=== PATIENT | male | born 1955 | race Caucasian/White ===

== ENCOUNTER → 2020-10-20 09:06 | Outpatient (BNVA) | payer OTHER, MEDICARE, SELFPAY | PROVIDERS: Family Provider Family Medicine; Visit Provider Nurse Practitioner Family | DX: I10 Essential (primary) hypertension (principal) | CPT/HCPCS: 80053; 80061; 84443; 85025 ==

== ENCOUNTER → 2020-11-10 13:48 | Outpatient (BNVA) | payer OTHER, MEDICARE, SELFPAY | PROVIDERS: Family Provider Family Medicine; PCP Nurse Practitioner Family; Visit Provider Nurse Practitioner Family | DX: M79.674 Pain in right toe(s) (principal); I10 Essential (primary) hypertension; H61.21 Impacted cerumen, right ear; Z68.30 Body mass index [BMI] 30.0-30.9, adult; H61.22 Impacted cerumen, left ear | CPT/HCPCS: 84550 ==

== ENCOUNTER → 2021-12-28 11:44 | Outpatient (BNVA) | payer MEDICARE, SELFPAY | PROVIDERS: Family Provider Family Medicine; PCP Nurse Practitioner Family; Visit Provider Family Medicine | DX: Z20.822 Contact with and (suspected) exposure to COVID-19 (principal); R50.9 Fever, unspecified | CPT/HCPCS: 87635 ==

== ENCOUNTER → 2022-09-28 16:33 | Outpatient (BNVA) | payer MEDICARE, SELFPAY | PROVIDERS: Family Provider Family Medicine; PCP Nurse Practitioner Family; Visit Provider Nurse Practitioner Family | DX: I10 Essential (primary) hypertension (principal) | CPT/HCPCS: 80053; 80061; 84443 ==

== ENCOUNTER → 2022-10-22 16:23 | Outpatient (BNVA) | payer MEDICARE, SELFPAY | PROVIDERS: Family Provider Family Medicine; PCP Nurse Practitioner Family; Visit Provider Otolaryngology | DX: H90.2 Conductive hearing loss, unspecified (principal); H61.23 Impacted cerumen, bilateral | CPT/HCPCS: 69210; 99212 ==

== ENCOUNTER → 2023-04-25 10:33 | Outpatient (BNVA) | payer MEDICARE, SELFPAY | PROVIDERS: Family Provider Family Medicine; PCP Nurse Practitioner Family; Visit Provider Nurse Practitioner Family | DX: I10 Essential (primary) hypertension (principal); E78.1 Pure hyperglyceridemia | CPT/HCPCS: 80053; 80061 ==

== ENCOUNTER 2023-07-12 14:48 | Outpatient (CLI) | payer MEDICARE, OTHER, SELFPAY ==
--- NOTE | 2023-07-12 14:54 | XR_ITS ---
WS: [id number] Exam: XR cervical spine 3V* [id number] Date/Time of Exam: 07/12/2023 2:56 PM Reason For Exam: M54.2 - Cervicalgia Comparison 09/21/2008. No fracture or dislocation. There is anterior fusion from C5-C7. The fusion is in satisfactory alignm ent. There are intervening disc spacers present. No sign of hardware failure. Mild facet DJD at all l evels. Normal paraspinal soft tissues. The odontoid is intact. IMPRESSION: 1. Intact anterior fusion from C5-C7. 2. Mild facet DJD at all levels.
== END 2023-07-12 14:49 | disposition home or self-care (01) ==
LOC: RAD 14:50
PROVIDERS: PCP Nurse Practitioner Family; Visit Provider Nurse Practitioner Family
DX: M47.812 Spondylosis without myelopathy or radiculopathy, cervical region (principal); Z98.890 Other specified postprocedural states; M43.22 Fusion of spine, cervical region
CPT/HCPCS: 72040

== ENCOUNTER 2023-07-25 06:00 | Outpatient (RCR) | payer MEDICARE, SELFPAY | END 2023-08-22 23:59 | disposition home or self-care (01) | LOC: GPT 06:00 | PROVIDERS: Visit Provider Nurse Practitioner Family | DX: M54.2 Cervicalgia (principal); G89.29 Other chronic pain | CPT/HCPCS: 97032; 97110; 97140; 97161; 97530 ==

== ENCOUNTER → 2023-08-08 14:56 | Outpatient (BNVA) | payer MEDICARE, SELFPAY | PROVIDERS: PCP Nurse Practitioner Family; Visit Provider Nurse Practitioner Family | DX: R30.0 Dysuria (principal) | CPT/HCPCS: 81000 ==

== ENCOUNTER 2023-08-23 06:00 | Outpatient (RCR) | payer MEDICARE, SELFPAY | END 2023-09-22 23:59 | disposition home or self-care (01) | LOC: GPT 06:00 | PROVIDERS: PCP Nurse Practitioner Family; Visit Provider Nurse Practitioner Family | DX: M54.2 Cervicalgia (principal); G89.29 Other chronic pain | CPT/HCPCS: 97110; 97140 ==

== ENCOUNTER 2023-09-10 15:21 | Outpatient (CLI) | payer MEDICARE, SELFPAY ==
--- NOTE | 2023-09-10 15:28 | XR_ITS ---
WS: [id number] Left shoulder, 3 views, 09/10/2023 Clinical Data: M25.512 - Pain in left shoulder Comparison: Left shoulder, 10/20/1999 Findings: No fractures or dislocations are seen. The AC joint is normal. The adjacent left clavicle, left scapu la and ribs are normal. The soft tissues are unremarkable. There is an anterior cervical disc fusion. Impression: Negative left shoulder.
== END 2023-09-10 15:22 | disposition home or self-care (01) ==
LOC: RAD 15:25
PROVIDERS: PCP Nurse Practitioner Family; Visit Provider Nurse Practitioner Family
DX: M25.512 Pain in left shoulder (principal)
CPT/HCPCS: 73030

== ENCOUNTER → 2023-10-29 14:42 | Outpatient (BNVA) | payer MEDICARE, SELFPAY | PROVIDERS: PCP Nurse Practitioner Family; Visit Provider Physician Assistant | DX: M25.512 Pain in left shoulder (principal); M75.42 Impingement syndrome of left shoulder | CPT/HCPCS: 20610; 73030; 99203; J3301 ==

== ENCOUNTER 2023-11-19 16:02 | Outpatient (CLI) | payer MEDICARE, SELFPAY ==
--- NOTE | 2023-11-19 16:45 | MR_ITS ---
WS: [id number] MRI LEFT SHOULDER HISTORY: left shoulder pain COMPARISON: 12/16/2008, radiograph 10/29/2023 TECHNIQUE: Multiplanar sequences of the shoulder joint are submitted. Mild AC joint arthritis. AC joint is narrowed. Mild hypertrophic formation and a very small amount of fluid in the subacromial and subdeltoid bursa. Mild progression of degenerative disease since 2008. There is a small osteophyte along the distal undersurface of the acromion with mild impingement. No o s acromion. Normal appearance of the biceps tendon. No muscle atrophy. Rotator cuff muscles are of normal size with no edema. There is mild tendinopathy with thickening involving the distal undersurface of the supraspinatus tendon near the rotator cuff i nterval. No tear identified. Very mild fraying and degenerative changes involving the labrum. No labr al tears. Mild glenohumeral joint narrowing. Signal within the osseous structures normal. MR/MR shoulder LT wo con* [id number] IMPRESSION: 1. Mild AC joint arthritis with progression since 2008. 2. Minimal subacromial impingement. 3. No rotator cuff muscle tear. Mild tendinopathy in the distal supraspinatus. 4. No labral tear. 5. No rotator cuff muscle atrophy.
== END 2023-11-19 16:03 | disposition home or self-care (01) ==
LOC: RAD 16:02
PROVIDERS: PCP Nurse Practitioner Family; Visit Provider Physician Assistant
DX: M75.42 Impingement syndrome of left shoulder (principal); M13.819 Other specified arthritis, unspecified shoulder; M25.712 Osteophyte, left shoulder
CPT/HCPCS: 73221

== ENCOUNTER → 2023-12-13 15:04 | Outpatient (BNVA) | payer MEDICARE, SELFPAY | PROVIDERS: PCP Nurse Practitioner Family; Visit Provider Student in an Organized Health Care Education/Training Program | DX: Z09 Encounter for follow-up examination after completed treatment for conditions other than malignant neoplasm; M54.12 Radiculopathy, cervical region; M75.42 Impingement syndrome of left shoulder | CPT/HCPCS: 99214 ==

== ENCOUNTER → 2024-01-02 15:11 | Outpatient (BNVA) | payer MEDICARE, SELFPAY | PROVIDERS: PCP Nurse Practitioner Family; Visit Provider Orthopaedic Surgery | DX: M54.9 Dorsalgia, unspecified (principal); G89.29 Other chronic pain; M54.2 Cervicalgia | CPT/HCPCS: 72050; 72072; 99204 ==

== ENCOUNTER 2024-01-23 12:29 | Outpatient (CLI) | payer MEDICARE, SELFPAY ==
--- NOTE | 2024-01-23 13:00 | MR_ITS ---
WS: [id number] MRI CERVICAL SPINE with and without contrast HISTORY: Neck Pain COMPARISON: 03/16/2008, radiograph 01/02/2024 Technique: Multiplanar, multisequence noncontrast imaging of the cervical spine. Postcontrast imaging 18 mL. Since the prior MRI patient's undergone an anterior cervical fusion from C5-C7. Interbody spacers at C5-6 and C6-7. There is fusion across the interbody spacers. No acute fracture or marrow edema. There is a very slight amount of increased T2 signal along the ve ntral cervical cord at the C7-T1 level, suspicious for edema. Craniocervical junction, C1 and C2 relationship, odontoid process and soft tissues are normal. C2-C3: Normal. C3-C4: Mild osteophytic ridging and a central disc protrusion. Mild bilateral foraminal stenosis, LEF T greater than RIGHT. C4-C5: Mild annular disc bulging and osteophytic ridging and facet arthritis. Central disc protrusion effaces CSF with mild contact on the ventral cord. Mild central and bilateral foraminal stenosis. C5-C6: No stenosis. C6-C7: No stenosis. C7-T1: Moderate-sized central disc protrusion. This may be a bilobed paracentral disc protrusion whic h is contacting and displacing the ventral cervical cord with complete effacement of CSF . Disc osteo phyte complexes extend into the neural foramen with complete effacement of fat. Moderate to severe ce ntral with severe bilateral foraminal stenosis. No discitis or osteomyelitis. There is a cystic mass measuring 10 x 12 mm in the RIGHT vallecula abutting the parapharyngeal mucosa . This was not present on the prior examination. On the postcontrast imaging there is questionable en hancement. MR/MR cervical spine wo/w [id number] IMPRESSION: 1. Patient is status post anterior cervical fusion with interbody spacers from C5-C7 which appears intact and appropriate. 2. C7-T1: Moderate size central bilobed disc protrusion contacting and displac ing the ventral cervical cord with disc osteophyte complexes in the foramina. M oderate to severe central with severe bilateral foraminal stenosis. New since 2 008. 3. Mild bilateral foraminal stenosis at C3-4 with a shallow central disc protr usion. 4. Mild central and bilateral foraminal stenosis at C4-5. 5. No discitis or osteomyelitis. 6. Cystic mass centered in the RIGHT vallecula. Mass measures 10 x 12 mm. Brice mmend follow-up neck CT with IV contrast. 7. Suspicious for mild anterior cord edema at the site of the C7-T1 disc protr usion.
[2024-01-23] MEDS: gadobenate dimeglumine 20 mL vial 18 ML IV (13:31)
== END 2024-01-23 12:30 | disposition home or self-care (01) ==
LOC: RAD 12:45
PROVIDERS: PCP Nurse Practitioner Family; Visit Provider Orthopaedic Surgery
DX: M50.20 Other cervical disc displacement, unspecified cervical region (principal); M99.61 Osseous and subluxation stenosis of intervertebral foramina of cervical region; M43.22 Fusion of spine, cervical region; M99.62 Osseous and subluxation stenosis of intervertebral foramina of thoracic region; M25.78 Osteophyte, vertebrae
CPT/HCPCS: 72156; A9577

== ENCOUNTER → 2024-02-13 15:17 | Outpatient (BNVA) | payer MEDICARE, SELFPAY | PROVIDERS: PCP Nurse Practitioner Family; Visit Provider Orthopaedic Surgery | DX: M54.2 Cervicalgia (principal); G89.29 Other chronic pain; Z98.890 Other specified postprocedural states; Z09 Encounter for follow-up examination after completed treatment for conditions other than malignant neoplasm; M54.12 Radiculopathy, cervical region | CPT/HCPCS: 80053; 81003; 81015; 85025; 99214 ==

== ENCOUNTER → 2024-03-06 10:11 | Outpatient (BNVA) | payer MEDICARE, SELFPAY | PROVIDERS: PCP Nurse Practitioner Family; Visit Provider Family Medicine | DX: Z01.818 Encounter for other preprocedural examination (principal) | CPT/HCPCS: 93005 ==

== ENCOUNTER 2024-04-03 08:58 | Day surgery (SDC) | payer OTHER, MEDICARE, SELFPAY ==
[2024-04-03] VITALS (11 sets, daily range): BP systolic 138–152; BP diastolic 78–95; PULSE 58–80; RESP 16–18; TEMP 36.2–36.4; O2SAT 92–97
[2024-04-03] MEDS: sodium chloride 0.9% 1,000 ML 30 ML IV (09:20)
--- NOTE | 2024-04-03 09:25 | W.PM.OPSUD ---
Surgery/Procedure H&P Update DATE OF PROCEDURE: April 03, 2024 DATE H&P PERFORMED: 03/06/24 H&P UPDATE INFORMATION: I have reviewed H&P completed within last 30 days, I have examined patient prior to procedure and No changes to prior documentation PREOP DIAGNOSIS: Cervical radiculopathy PLANNED PROCEDURE: Operation Date: 04/03/24 10:40 Proposed Procedures p Cervical Laminectomy C7/T1(Not Applicable) - José Gibson DO
--- NOTE | 2024-04-03 09:50 | P.ANESASSM_ITS ---
Pre-Anesthetic Assessment Height/Weight: Height 1.7 m Weight 87.543 kg Temp Pulse Resp BP Pulse Ox O2 Del Method 97.6 F 74 18 147/92 95 Room Air 04/03/24 09:19 04/03/24 09:19 04/03/24 09:19 04/03/24 09:19 04/03/24 09:19 04/03/24 09:36 Preop Diagnosis: Cervical radiculopathy Operation Date: 04/03/24 10:40 Proposed Procedures p Cervical Laminectomy C7/T1(Not Applicable) - José Gibson, Familial anesthetic complications: None Was Beta Jose R taken within 24 hours: N/A Was Clonidine taken within 24 hours: N/A Last intake: Intake Last Liquid Date 04/02/24 Last Liquid Time 22:00 Last Solid Date 04/02/24 Last Solid Time 18:00 Social Alcohol and Tobacco Exam alert, oriented x 3, clear to auscultation bilaterally and regular rate & rhythm Airway Mallampati: Class II Dentition: other (no teeth) CV/HEM Hypertension Anesthetic Plan ASA status: 2 Anesthesia: General Risk of > 500 ml blood loss (7ml/kg in children): No Medications/Allergies Home Medications Medication Instructions Recorded Confirmed Last Taken Type losartan 50 mg tablet 50 mg PO BID 04/03/24 04/03/24 04/02/24 History nifedipine 90 mg tablet,extended 90 mg PO DAILY 04/03/24 04/03/24 04/02/24 History release 24 hr Allergies Allergy/AdvReac Type Severity Reaction Status Date / Time No Known Allergies Allergy Verified 04/02/24 08:29 [facility] Anesthesia Surgical History History of neck surgery Social History Smoking and tobacco/nicotine status: never used tobacco/nicotine Alcohol intake: current Alcohol intake frequency: few times a month Alcohol type: hard liquor Data Anesthesia Cardiac Studies: No Data to Display
[2024-04-03] MEDS: ceFAZolin 2,000 mg SDV 2000 MG IVP (10:41)
[2024-04-03] MEDS: lidocaine-epi 1% 20 mL INJ INJECTION (11:24)
--- NOTE | 2024-04-03 11:43 | P.OP_ITS ---
Operative Report Date of procedure: April 03, 2024 Pre-op diagnosis: C7-T1 cervical radiculopathy Post-op diagnosis: same Procedure done: C7-T1 laminectomy with partial facetectomy and foraminotomy on the left Surgeon: José Gibson DO Estimated blood loss (mL): 5 Procedure: C7-T1 laminectomy with partial facetectomy and foraminotomy on the left Patient is brought to the procedure after an Gonasi was placed in prone position. All areas impingement well-padded patient's prepped draped using normal sterile fashion. C-arm was brought into identify the C7-T1 level on the left side. Skin incision was made and the fascia was opened. And then a wire was placed at the C7 lamina. And then dilators were placed up into the 18 mm tube was placed and a size 6 x 18 mm tube was placed. The microscope was brought in bur was used to clean the muscle of the remaining lamina of C7 and T1 lamina. Once the bone was identified high-speed bur was used to take down the lamina and medial aspect of the facet joint. The Kerrison rongeur was then used to take down the remaining C7 lamina as well as the medial aspect of the facet joint. The ligamentum flavum was taken down from C7-T1. Part of the T1 lamina was taken down superiorly. The pedicle of T1 and the pedicle of C7 were palpat ed. The foramen was then opened and identifying the C8 nerve root coming out laterally. Once this nerve was completely freed up wound was irrigated. And then the T1 nerve root was palpated around the T1 pedicle. Was irrigated Surgiflo was placed and wound was closed in layered fashion with 2-0 Vicryl and Monocryl suture. Sterile dressings applied and patient was transferred to the PACU in stable condition.
--- NOTE | 2024-04-03 12:05 | XR_ITS ---
WS: [id number] XR cervical spine 1Vport [id number] REASON FOR EXAM: OR PICS FINDINGS: Surgical instrument overlies the right C7-T1 disc space. XR/XR cervical spine 1Vport [id number] IMPRESSION: Intraoperative cervical level localization as above.
[2024-04-03] MEDS: oxyCODONE-APAP 5-325 mg Tablet 1 TAB PO (12:41)
== END 2024-04-03 13:16 | disposition home or self-care (01) ==
PROVIDERS: PCP Nurse Practitioner Family; Visit Provider Orthopaedic Surgery
PROC: (CPT 63001; principal; 2024-04-03 10:40)
DX: M54.12 Radiculopathy, cervical region (principal); I10 Essential (primary) hypertension
CPT/HCPCS: 63045; 72020; 76000; J0131; J0690; J1100; J2405; J2704; J3010; J3490; J7030

== ENCOUNTER → 2024-04-21 13:55 | Outpatient (BNVA) | payer MEDICARE, SELFPAY | PROVIDERS: PCP Nurse Practitioner Family; Visit Provider Orthopaedic Surgery | DX: M54.12 Radiculopathy, cervical region (principal) | CPT/HCPCS: 99024 ==

== ENCOUNTER → 2024-05-14 13:32 | Outpatient (BNVA) | payer MEDICARE, SELFPAY | PROVIDERS: PCP Nurse Practitioner Family; Visit Provider Orthopaedic Surgery | DX: Z98.1 Arthrodesis status (principal); M54.12 Radiculopathy, cervical region | CPT/HCPCS: 72040; 99024 ==

== ENCOUNTER → 2024-06-30 13:58 | Outpatient (BNVA) | payer MEDICARE, SELFPAY | PROVIDERS: PCP Nurse Practitioner Family; Visit Provider Orthopaedic Surgery | DX: M54.12 Radiculopathy, cervical region (principal); Z48.89 Encounter for other specified surgical aftercare | CPT/HCPCS: 99024 ==

== ENCOUNTER → 2024-08-20 14:15 | Outpatient (BNVA) | payer MEDICARE, SELFPAY | PROVIDERS: PCP Nurse Practitioner Family; Visit Provider Orthopaedic Surgery | DX: M54.9 Dorsalgia, unspecified (principal); M48.062 Spinal stenosis, lumbar region with neurogenic claudication | CPT/HCPCS: 72110; 99214 ==

== ENCOUNTER → 2024-09-18 09:08 | Outpatient (BNVA) | payer MEDICARE, SELFPAY | PROVIDERS: PCP Nurse Practitioner Family; Visit Provider Family Medicine | DX: N39.0 Urinary tract infection, site not specified (principal) | CPT/HCPCS: 81000 ==

== ENCOUNTER → 2024-10-01 10:44 | Outpatient (BNVA) | payer MEDICARE, SELFPAY | PROVIDERS: PCP Nurse Practitioner Family; Visit Provider Nurse Practitioner Family | DX: N39.0 Urinary tract infection, site not specified (principal) | CPT/HCPCS: 80053; 81000; 84153; 85025; 87086 ==

== ENCOUNTER 2024-10-13 14:12 | Outpatient (CLI) | payer MEDICARE, SELFPAY ==
--- NOTE | 2024-10-13 14:16 | CTR_ITS ---
PROCEDURE INFORMATION: Exam: CT Neck With Contrast Exam date and time: 10/13/2024 2:46 PM Age: 69 years old Clinical indication: Prior surgery; Surgery date: 6+ months; Surgery type: C spine x2; Left ear pain x 2 years; Additional info: Otalgia, L ear/? Head neck neoplasm TECHNIQUE: Imaging protocol: Computed tomography of the neck with contrast. Radiation optimization: All CT scans at this facility use at least one of these dose optimization techniques: automated exposure control; mA and/or kV adjustment per patient size (includes targeted exams where dose is matched to clinical indication); or iterative reconstruction. Contrast material: OMNI 350; Contrast volume: 100 ml; Contrast route: INTRAVENOUS (IV); COMPARISON: MR cervical spine wo/w [id number] 01/23/2024 1:03 PM RADIATION DOSE METRICS: Total DLP (mGy-cm): 287.64 FINDINGS: Paranasal sinuses: Mild bilateral ethmoid sinusitis. Otherwise, unremarkable visualized paranasal sinuses. Mastoid air cells: Clear visualized mastoid air cells bilaterally. Auditory system: Clear middle ear cavities bilaterally. Salivary glands: Normal. Glands are normal in size. Pharynx: Swollen parapharyngeal tonsils bilaterally. Increased soft tissue base of the tongue and involving the soft palate. Several small fluid collections in the left parapharyngeal tonsil, in the increased soft tissue involving the base of the tongue, and in the swollen soft palate. The largest involves the right base of the tongue measuring 14 mm by 11 mm by 12 mm. This is probably all inflammatory/abscesses, but given the history some of this could be neoplastic. Larynx: Unremarkable. Epiglottis is normal. Thyroid: Normal. No enlarged or calcified nodules. Trachea: Visualized trachea is unremarkable. Lungs: Unremarkable as visualized. Lymph nodes: Unremarkable. No lymphadenopathy. Bones/joints: Anterior C5-C7 surgical fusion with hardware. No obvious complication. Mild C7-T1 degenerative disc disease. Otherwise, unremarkable. Soft tissues: Unremarkable. No significant soft tissue swelling. CT/CT neck w con* [id number] IMPRESSION: 1. Swollen parapharyngeal tonsils bilaterally. Increased soft tissue base of the tongue and involving the soft palate. Several small fluid collections in the left parapharyngeal tonsil, in the increased soft tissue involving the base of the tongue, and in the swollen soft palate. The largest involves the right base of the tongue measuring 14 mm by 11 mm by 12 mm. This is probably all inflammatory/abscesses, but given the history some of this could be neoplastic. Consider definitive diagnosis with endoscopic visualization and tissue sampling. 2. Mild bilateral ethmoid sinusitis. 3. No other acute findings. 4. Additional details as above.
[2024-10-13] MEDS: iohexol 350 mg/mL 500 mL Btl (per mL) IV (14:56)
== END 2024-10-13 14:13 | disposition home or self-care (01) ==
LOC: RAD 14:13
PROVIDERS: PCP Nurse Practitioner Family; Visit Provider Otolaryngology
DX: H92.02 Otalgia, left ear (principal); J32.2 Chronic ethmoidal sinusitis; R93.89 Abnormal findings on diagnostic imaging of other specified body structures; Z98.1 Arthrodesis status; M50.33 Other cervical disc degeneration, cervicothoracic region
CPT/HCPCS: 70491

== ENCOUNTER → 2025-01-05 15:28 | Outpatient (BNVA) | payer MEDICARE, SELFPAY | PROVIDERS: PCP Nurse Practitioner Family; Visit Provider Orthopaedic Surgery | DX: M48.062 Spinal stenosis, lumbar region with neurogenic claudication (principal) | CPT/HCPCS: 99213 ==

== ENCOUNTER 2025-01-15 15:06 | Outpatient (CLI) | payer MEDICARE, SELFPAY ==
--- NOTE | 2025-01-15 15:15 | MR_ITS ---
WS: [id number] MRI LUMBAR SPINE NONCONTRAST TECHNIQUE: Sagittal T1, T2 and STIR imaging. Axial T1 and T2 imaging. CLINICAL INFORMATION: Back pain COMPARISON: MRI 2014 FINDINGS: Mild lumbar curve. No acute compression. No high-grade central canal stenosis. Disc desiccation at L5-S1 has progressed with endplate degenerative changes. Degenerative disc changes L1-2 with endplate Schmorl's node. ACDF C5-C7 on the cervical spine division service manager imaging. Grade 1 anterolisthesis C7 on T1 with central disc protrusion and moderate central canal stenosis. Indentation of the cervical cord. Recommend cervical spine MRI. L1-L2: Mild disc bulging with slight effacement of the ventral thecal sac. Mild narrowing of the subarticular recess. Mild facet arthropathy. Foramen are patent. L2-L3: Mild annular bulging with a shallow central protrusion. Slight impingement on the traversing LEFT greater than RIGHT L3 nerve roots with narrowing of the subarticular recess. Mild facet arthropathy. Mild LEFT foraminal narrowing. L3-L4: Annular bulging with narrowing of the RIGHT subarticular recess. Impingement of traversing RIGHT L4 nerve root. RIGHT foraminal protrusion impinges the exiting RIGHT L3 nerve root with moderate RIGHT foraminal narrowing. Mild facet arthropathy. L4-L5: Mild annular bulging. Impingement of the LEFT subarticular recess and traversing LEFT L5 nerve root. Mild facet arthropathy. LEFT foraminal protrusion impinges the exiting LEFT L4 nerve root with moderate LEFT foraminal narrowing. RIGHT foramen is patent. Mild facet arthropathy. L5-S1: Mild disc bulging with a shallow central LEFT paracentral protrusion. Encroachment of traversing LEFT greater than RIGHT S1 nerve roots. Bilateral foraminal protrusions with moderate RIGHT and mild LEFT foraminal narrowing. Visualized pelvic bony structures: Normal. Paravertebral soft tissues: Normal. MR/MR lumbar spine wo con* [id number] IMPRESSION: 1. Moderate central canal stenosis C7-T1 below the anterior fusion with indent ation on the cervical thoracic cord. Recommend cervical spine MRI. 2. Disc bulging L4-5 impinges the LEFT subarticular recess and traversing LEFT L5 nerve root. LEFT foraminal protrusion impinges the exiting LEFT L4 nerve ro ot. 3. Shallow central protrusion L5-S1 slightly impinges the traversing LEFT grea ter than RIGHT S1 nerve roots. 4. Bilateral foraminal protrusions L5-S1 impinges the exiting RIGHT greater th an LEFT L5 nerve roots. 5. Shallow LEFT paracentral protrusion L2-3 with narrowing of the LEFT subarti cular recess. 6. Disc bulging L3-4 impinges the traversing RIGHT L4 nerve root in the subart icular recess. RIGHT foraminal protrusion at this level impinges the exiting RI GHT L3 nerve root.
== END 2025-01-15 15:07 | disposition home or self-care (01) ==
LOC: RAD 15:09
PROVIDERS: PCP Nurse Practitioner Family; Visit Provider Orthopaedic Surgery
DX: M48.03 Spinal stenosis, cervicothoracic region (principal); M51.360 Other intervertebral disc degeneration, lumbar region with discogenic back pain only; M51.26 Other intervertebral disc displacement, lumbar region; M51.27 Other intervertebral disc displacement, lumbosacral region
CPT/HCPCS: 72148

== ENCOUNTER → 2025-01-19 14:35 | Outpatient (BNVA) | payer MEDICARE, SELFPAY | PROVIDERS: PCP Nurse Practitioner Family; Visit Provider Orthopaedic Surgery | DX: M48.062 Spinal stenosis, lumbar region with neurogenic claudication (principal); M51.360 Other intervertebral disc degeneration, lumbar region with discogenic back pain only; G89.29 Other chronic pain; Z01.818 Encounter for other preprocedural examination; Z09 Encounter for follow-up examination after completed treatment for conditions other than malignant neoplasm | CPT/HCPCS: 36415; 80053; 81001; 85025; 99214 ==

== ENCOUNTER 2025-01-29 09:30 | Outpatient (CLI) | payer MEDICARE, SELFPAY | END 2025-01-29 09:31 | disposition home or self-care (01) | LOC: LAB 02-01 06:35 | PROVIDERS: PCP Nurse Practitioner Family; Visit Provider Family Medicine | DX: Z01.818 Encounter for other preprocedural examination (principal) | CPT/HCPCS: 80053; 80503; 81003; 85007; 85027 ==

== ENCOUNTER → 2025-01-29 10:16 | Outpatient (BNVA) | payer MEDICARE, SELFPAY | PROVIDERS: PCP Nurse Practitioner Family; Visit Provider Family Medicine | DX: Z01.818 Encounter for other preprocedural examination (principal) | CPT/HCPCS: 93005 ==

== ENCOUNTER 2025-01-29 12:10 | Inpatient (IN) | payer MEDICARE, SELFPAY ==
[2025-01-29] VITALS (12 sets, daily range): BP systolic 121–161; BP diastolic 69–99; PULSE 89–124; RESP 12–20; TEMP 36.7–36.8; O2SAT 93–98; BMI 28.3; BMI 27.1
--- NOTE | 2025-01-29 12:16 | ECG_ITS ---
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
--- NOTE | 2025-01-29 12:35 | W.ED.RECABL ---
HPI - Recheck/Abnormal Lab/Rx General: Chief Complaint: Recheck/Abnormal Lab/Rx Stated Complaint: Abnormal Labs Time Seen by Provider: 01/29/25 12:16 History of Present Illness: 69-year-old male directed to the emergency room by his primary care doctor he was at his primary care for preop for back surgery and found to have acute renal failure. Dr. Sherman directed him to the emergency room. He was also noted to be hypercalcemic. He has been urinating normally as far as he can tell he has had some low-grade diarrhea for the last 3 weeks. Related Data Previous Rx's ?Medication ?Instructions ?Recorded losartan 50 mg tablet See Rx Instructions .Route 12/03/24 .COMPLEX #180 tabs tamsulosin 0.4 mg capsule (Flomax) 0.4 mg PO DAILY #90 caps 12/28/24 oxycodone-acetaminophen 5 mg-325 1 tab PO Q4H PRN pain 7 days #42 01/07/25 mg tablet tabs nifedipine 90 mg tablet,extended See Rx Instructions .Route 01/15/25 release 24 hr .COMPLEX #90 tabs Allergies Allergy/AdvReac Type Severity Reaction Status Date / Time No Known Allergies Allergy Verified 01/29/25 10:25 Review of Systems Const: Denies: fever(s) or chills Card: Denies: chest pain Resp: Denies: dyspnea GI: Reports: diarrhea; Denies: abdominal pain : Denies: dysuria, urinary frequency or urinary urgency Musc: Denies: neck pain or back pain Skin/Breast: Denies: rash PFSH ED PFSH: Surgical History History of neck surgery Social History Smoking and tobacco/nicotine status: current every day tobacco/nicotine user cigarettes Packs smoked per day: 1 Alcohol intake: current Alcohol intake frequency: few times a month Alcohol type: hard liquor Physical Exam Const: GENERAL APPEARANCE: cooperative ORIENTATION/CONSCIOUSNESS: Yes awake, Yes oriented to person, Yes oriented to place and Yes oriented to time HENMT: COMMON NORMALS: normocephalic, atraumatic and hearing grossly normal bilaterally HEAD & SCALP: normocephalic and atraumatic Resp: COMMON NORMALS: normal respiratory effort, No retractions, No use of accessory muscles and clear to auscultation bilaterally AUSCULTATION: clear to auscultation bilaterally Cardio: COMMON NORMALS: regular rate, regular rhythm and No murmurs present (Cardio) RATE: regular rate RHYTHM: regular rhythm GI: COMMON NORMALS: Soft to palpation and No hepatosplenomegaly present AUSCULTATION: Yes normoactive bowel sounds PALPATION: Yes Soft to palpation, No Tenderness to palpation present (GI), No Guarding due to palpation present (GI) and Yes No hepatosplenomegaly present Extremity: COMMON NORMALS: normal to inspection, capillary refill normal, no clubbing, cyanosis or edema, no calf tenderness and no pedal edema Neuro: SENSORIUM/ORIENTATION: Yes oriented to person, Yes oriented to place and Yes oriented to time Skin: COMMON NORMALS: no rashes or lesions noted GENERAL SKIN EXAM: no rashes or lesions noted Course Vital Signs: Vital signs: Vital Signs Temperature 98.0 F 01/29/25 12:18 Pulse Rate 124 H 01/29/25 12:18 Respiratory Rate 16 01/29/25 12:18 Blood Pressure 161/91 01/29/25 12:18 Pulse Oximetry 98 01/29/25 12:18 Oxygen Delivery Me thod Room Air 01/29/25 12:18 MDM - Recheck/Abnormal Lab/Rx Medical Decision Making Acute kidney injury. In September of this year his renal function was normal approximately 10 days ago was 5.4 now 10.2. He is also anemic with a hemoglobin of 8.1. Will admit consult nephrology. Have discussed with hospitalist. Also of concern is his calcium is significantly elevated and MRI done a few weeks ago did not show any abnormalities but CT done today shows concerning abnormalities in the lumbar spine and thoracic spine. This was reviewed with the hospitalist as well. Medical Records I reviewed the patient's medical records. Lab Data I reviewed the patient's lab results. 01/29/25 12:49 01/29/25 12:49 Radiology Impressions Abdomen/Pelvis CT 01/29/25 13:30 IMPRESSION: 1. Bilateral perinephric stranding with no obstruction. 2. Mesenteric edema with no ascites. 3. No GI tract obstruction or colitis. 4. New lytic lesion with loss of height in the RIGHT lateral L5 vertebral body since 01/15/2025. There is no adjacent mass. Possibility of a new compression fracture or metastatic lesion should be considered. There is an additional lytic area in the RIGHT lateral T10 vertebral body. Recommend follow-up MRI thoracic and lumbar spines with and without IV contrast. Bone scan may also be of benefit to evaluate the entire skeleton. 5. Mild compression of known L1 compression fracture and stable L2 compression fracture. 6. Scattered pancreatic calcifications from prior pancreatitis. 7. Spleen is top normal size. Laboratory Results WBC 3.56 10^3/uL (3.29-11.43) 01/29/25 12:49 RBC 2.42 10^6/uL (3.85-5.65) L 01/29/25 12:49 Hgb 8.10 g/dL (11.27-16.99) L 01/29/25 12:49 Hct 23.9 % (37-53) L 01/29/25 12:49 MCV 98.8 fl (82-101) 01/29/25 12:49 MCH 33.5 pg (27-33) H 01/29/25 12:49 MCHC 33.9 g/dL (30-55) 01/29/25 12:49 RDW 13.3 % (12.1-15.1) 01/29/25 12:49 Plt Count 105 10^3/cmm (157-399) L 01/29/25 12:49 MPV 9.7 fL (7.4-10.4) 01/29/25 12:49 Neut % (Auto) 56.5 % 01/29/25 12:49 Lymph % (Auto) 26.4 % 01/29/25 12:49 [place] % (Auto) 10.7 % 01/29/25 12:49 Eos % (Auto) 4.2 % 01/29/25 12:49 Baso % (Auto) 0.8 % 01/29/25 12:49 Neut # (Auto) 2.01 10^3/uL (1.8-7.7) 01/29/25 12:49 Lymph # (Auto) 0.9 10^3/uL (0.8-4.8) 01/29/25 12:49 [place] # (Auto) 0.4 10^3/uL (0.2-0.9) 01/29/25 12:49 Eos # (Auto) 0.2 10^3/uL (0.0-0.8) 01/29/25 12:49 Baso # (Auto) 0.0 10^3/uL (0.0-0.1) 01/29/25 12:49 Nucleated RBC % (auto) 0.8 % 01/29/25 12:49 Nucleated RBCs # 0.0 /100WBC 01/29/25 12:49 Sodium 134 mmol/L (136-145) L 01/29/25 12:49 Potassium 4.2 mmol/L (3.5-5.1) 01/29/25 12:49 Chloride 95 mmol/L (98-107) L 01/29/25 12:49 Carbon Dioxide 17 mmol/L (22-29) L 01/29/25 12:49 Anion Gap 26.2 (5-19) H 01/29/25 12:49 BUN 58 mg/dL (8-23) H 01/29/25 12:49 Creatinine 10.2 mg/dL (0.7-1.2) H* 01/29/25 12:49 GFR Calculation 5.1 mL/min (90-130) L 01/29/25 12:49 Glucose 107 mg/dL (65-115) 01/29/25 12:49 Calculated Osmolality 295 mOsm/kg (285-295) 01/29/25 12:49 Calcium 13.9 mg/dL (8.5-10.5) H* 01/29/25 12:49 Magnesium 2.5 mg/dL (1.7-2.3) H 01/29/25 12:49 Total Bilirubin 0.3 mg/dL (0.15-1.2) 01/29/25 12:49 AST 11 U/L (0-40) 01/29/25 12:49 ALT < 5 U/L (0-41) 01/29/25 12:49 Alkaline Phosphatase 55 U/L (40-130) 01/29/25 12:49 Creatine Kinase 60 U/L (39-308) 01/29/25 12:49 Total Protein 11.8 g/dL (6.6-8.7) H 01/29/25 12:49 Albumin 2.9 g/dL (3.5-5.2) L 01/29/25 12:49 Globulin 8.9 g/dL (1.3-4.6) H 01/29/25 12:49 PTH Intact 9.2 pg/mL (15-65) L 01/29/25 12:49 Calcium (PTH Intact) 13.6 mg/dL (8.5-10.5) H 01/29/25 12:49 All radiology interpretation(s) finalized by discharge EKG Data EKG 1: Interpretation: EKG 01/29/2025 10:26 AM sinus rhythm Q waves in 2 3 and [address]VF no acute ST elevation. There is T wave inversion in 3 and aVF. 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
[2025-01-29 13:11] LABS: Hematocrit 23.9 % (37-53); Hemoglobin 8.10 g/dL (11.27-16.99); Mean Corpuscular HGB Conc 33.9 g/dL (30-55); Mean Corpuscular Hemoglobin 33.5 pg (27-33); Mean Corpuscular Volume 98.8 fl (82-101); Nucleated Red Blood Cells % 0.8 %; Platelet Count 105 10^3/cmm (157-399); Red Blood Count 2.42 10^6/uL (3.85-5.65); White Blood Count 3.56 10^3/uL (3.29-11.43)
--- NOTE | 2025-01-29 13:30 | CT_ITS ---
WS: [id number] CT ABDOMEN AND PELVIS NONCONTRAST HISTORY: ZELDA TECHNIQUE: Imaging performed through the abdomen and pelvis. Coronal and sagittal reformats are submitted. All CT scans at [facility] use at least one of these dose optimization techniques: automated exposure control; mA and/or kV adjustment per patient size (includes targeted exams where dose is matched to clinical indication); or iterative reconstruction. DLP: 637.23 mGy.cm COMPARISON: 02/12/2012 Lower thorax: Benign granuloma at the RIGHT lung base. Heart is slightly enlarged. Liver: Normal size liver. No mass or bile duct dilatation. Gallbladder: Normal gallbladder. No pericholecystic fluid or cholelithiasis. No gallbladder wall thickening. Pancreas: There are a few scattered calcifications throughout the pancreas. Spleen: Spleen is top normal size at 12.4 cm in length with granulomata. Splenic varices. Adrenal glands: Normal. No mass. Right kidney: Mild perinephric stranding. No obstruction. Left kidney: Mild perinephric stranding with no obstruction. Aorta: Mild atherosclerosis abdominal aorta with no aneurysm. No ascites or adenopathy. Mild mesenteric edema. GI tract: No obstruction. There is mild submucosal edema which can be seen with portal venous hypertension. No colitis. Normal appendix. Abdominal wall: Negative. No hernia. Pelvis: Normally distended bladder. Prostate gland is mildly encroaching upon the posterior bladder. Bilateral patent inguinal canals contain fat only. Osseous structures: Lytic destruction involving the RIGHT lateral L5 vertebral body with slight loss of vertebral body height. New since 01/15/2025. Mild compression deformities at L1 and L2. Progression of biconcave fracture of L1. Stable L2 fracture. Additional sclerotic focus at T10. Additional lytic lesion in the RIGHT lateral T10 vertebral body. CT/CT abdomen pelvis wo con [id number] IMPRESSION: 1. Bilateral perinephric stranding with no obstruction. 2. Mesenteric edema with no ascites. 3. No GI tract obstruction or colitis. 4. New lytic lesion with loss of height in the RIGHT lateral L5 vertebral body since 01/15/2025. There is no adjacent mass. Possibility of a new compression f racture or metastatic lesion should be considered. There is an additional lytic area in the RIGHT lateral T10 vertebral body. Recommend follow-up MRI thoracic and lumbar spines with and without IV contrast. Bone scan may also be of benef it to evaluate the entire skeleton. 5. Mild compression of known L1 compression fracture and stable L2 compression fracture. 6. Scattered pancreatic calcifications from prior pancreatitis. 7. Spleen is top normal size.
[2025-01-29 13:31] LABS: Alanine Aminotransferase < 5 U/L (0-41); Albumin Level 2.9 g/dL (3.5-5.2); Alkaline Phosphatase 55 U/L (40-130); Anion Gap 26.2 (5-19); Aspartate Amino Transferase 11 U/L (0-40); Blood Urea Nitrogen 58 mg/dL (8-23); Carbon Dioxide 17 mmol/L (22-29); Chloride 95 mmol/L (98-107); Creatinine Clr Calc Pharmacy 7.1078; Globulin 8.9 g/dL (1.3-4.6); Glucose 107 mg/dL (65-115); Magnesium 2.5 mg/dL (1.7-2.3); Osmolality Calculated 295 mOsm/kg (285-295); Potassium 4.2 mmol/L (3.5-5.1); Sodium 134 mmol/L (136-145); Total Protein 11.8 g/dL (6.6-8.7)
[2025-01-29 13:51] LABS: Calcium 13.9 mg/dL (8.5-10.5)
[2025-01-29 13:52] LABS: Calcium 13.6 mg/dL (8.5-10.5)
--- NOTE | 2025-01-29 14:12 | P.CONIM_ITS ---
Providers/Reason For Consult 2 Consulting Physician/Specialty*: KOMMANA, NEPHROLOGY Reason for Consult*: ZELDA, hypercalcemia Attending Physician: Evie Marie MD Primary Care Provider: Yulissa Mariscal NP History of Present Illness History of Present Illness Gamal Yanez is a 69 year old male Patient is a 69-year-old male who was recently diagnosed with prostate cancer and also found to have lumbar compression fractures and was supposed to have laminectomy done on Saturday and preop labs showed severe hypercalcemia and severe ZELDA., And was sent to ER for further evaluation. Lab data in the ER has revealed severe hypercalcemia with a calcium of 13.9 and creatinine about 10. CT abdomen was done which was negative for hydronephrosis but showed lytic lesions at L5 and T10 vertebral bodies. Patient started on IV fluid resuscitation Creatinine was 1.0 in September 2024 and was noted rising up to 5.4 on January 19, 2025 and currently at 10.2. Patient also reported taking NSAIDs about 6 ibuprofen pills a day for the last 1 month for back pain. Review of Systems 2 Narrative: Negative Medications/Allergies Home Medications ?Medication ?Instructions ?Recorded ?Confirmed ?Last Taken ?Type losartan 50 mg tablet See Rx Instructions .Route 0 12/03/24 01/29/25 01/29/25 08:00 Rx .COMPLEX #180 tabs tamsulosin 0.4 mg capsule (Flomax) 0.4 mg PO DAILY #90 caps 12/28/24 01/29/25 Unknown Rx nifedipine 90 mg tablet,extended See Rx Instructions . Route 01/15/25 01/29/25 01/22/25 07:00 Rx release 24 hr .COMPLEX #90 tabs acetaminophen 500 mg tablet 1,500 mg PO Q6H PRN Pain 0 01/29/25 01/29/25 01/28/25 History (Tylenol Extra Strength) ibuprofen 200 mg tablet (Advil) 600 mg PO Q6H PRN Pain 01/29/25 01/29/25 01/28/25 History oxycodone-acetaminophen 5 mg-325 1 tab PO Q4H PRN pain 01/29/25 01/29/25 01/29/25 08:00 History mg tablet (Percocet) Allergies Allergy/AdvReac Type Severity Reaction Status Date / Time No Known Allergies Allergy Verified 01/29/25 10:25 PFSH Acute 2 PFSH: Surgical History History of neck surgery Social History Smoking and tobacco/nicotine status: current every day tobacco/nicotine user cigarettes Packs smoked per day: 1 Alcohol intake: current Alcohol intake frequency: few times a month Alcohol type: hard liquor Vitals/I&O/Wt Last Vital Signs Temp 98.0 F 01/29/25 12:18 Pulse 124 H 01/29/25 12:18 Resp 16 01/29/25 12:18 BP 161/91 01/29/25 12:18 Pulse Ox 98 01/29/25 12:18 O2 Del Method Room Air 01/29/25 12:18 01/28/25 01/29/25 01/29/25 22:59 06:59 14:59 Intake Total 0 / 0 Balance 0 / 0 Weight last 48 hrs Weight 82.1 kg Physical Exam 2 Narrative: Patient is awake alert, no distress, on room air No JVD, PERRLA S1-S2 regular rate and rhythm per report Lungs clear decreased breath sounds bilaterally per report Abdomen soft nontender per report No pedal edema Data 01/30/25 02:53 01/30/25 02:53 Micro: Microbiology 01/29/25 12:49 Blood Culture - Preliminary Blood SPECIMEN COLLECTED 01/29/25 12:42 Blood Culture - Preliminary Blood SPECIMEN COLLECTED A&P Assessment and plan 1. Acute kidney injury: 2. Hypercalcemia: Plan: 1. Acute kidney injury: Likely multifactorial in the setting of recent NSAID use, prerenal ZELDA due to poor p.o. intake and severe hypercalcemia. - Plan for aggressive IV fluid resuscitation, also ordered calcitonin, if no improvement discussed with patient and patient's daughter at bedside regarding possible dialysis. Strict intake and output. No obstruction on CT, urine analysis noted with 2+ protein and 1+ blood. - SPEP UPEP pending, 2. Severe hypercalcemia: Malignancy induced likely, avoiding bisphosphonates due to renal insufficiency, ordered calcitonin, Would benefit from denosumab, will initiate in-house if available. 3. Metabolic acidosis: In the setting of severe ZELDA, if no improvement will switch IV fluids to bicarbonate drip. 4. Hypertension: Avoid CHASITY inhibitors, resume nifedipine 5. Metastatic prostate cancer , Patient evaluated using audiovisual cart. Time spent 40 minutes. PDMP PDMP Reviewed: Not Reviewed Consult Attestations 2 Medical Necessity Statement: per medicine Coding Level of Care Code Acute Code for Chg Fwd Diagnoses Acute kidney injury N17.9 Hypercalcemia E83.52
--- NOTE | 2025-01-29 14:30 | P.HP_ITS ---
Providers/Chief Complaint 2 Admitting Physician: Evie Marie MD Primary Care Provider: Yulissa Mariscal NP Chief Complaint: Abnormal Labs History of Present Illness Gamal Yanez is a 69 year old male with recently diagnosed local prostate cancer per his history who was sent today after being noted to have abnormal labs on a pre surgery evaluation. He has been experiencing increasing back pain over the past month, more acutely worsened in the last week for which he has been taking NSAIDs and oxycodone without much relief. He was recently found to have an elevated PSA and underwent a prostate biopsy one month ago at [facility] and reports he was found to have localized prostate cancer. A bone scan did not show any metastatic disease per patient. A recent MRI from 01/19 also does not make note of any metastatic disease. He was planned to have laminectomy and fusion with Dr. carbone on Saturday and went for a pre surgery eval which found several abnormalities including ZELDA with creat at 10, hypercalcemia, elevated totdal protein. CT abdomen did not show any nephrolithiasis or hydronephrosis but revealed lytic lesions at L5 and t10 vertebral bodies. Jefferson cather was placed, no significant retention was encountered Review of Systems 2 General: Reports: 10 or more systems reviewed and unremarkable except in HPI and below Const: Denies: fever(s), chills or body aches Eyes: Denies: change in vision, blurry vision or photophobia ENMT: Reports: hoarseness; Denies: throat pain, enlarged tonsils, odynophagia or nasal congestion Card: Denies: chest pain, palpitations, irregular heart rhythm, edema, swelling of feet/ankles, lightheadedness, pre-syncope, dyspnea on exertion or orthopnea Resp: Denies: dyspnea, productive cough, non-productive cough, wheezing, stridor, pain on inspiration, change in phlegm color, hemoptysis or chest congestion GI: Denies: abdominal pain, nausea, vomiting, hematemesis, coffee ground emesis, dysphagia, heartburn, diarrhea, constipation, GI cramping, change in stool character, hematochezia or melena : Denies: flank pain, dysuria, urinary frequency, urinary urgency, urinary hesitancy or hematuria Musc: Denies: neck pain, back pain, extremity pain, joint swelling, joint warmth or deformity Neuro: Denies: headache(s), numbness in extremities, weakness in extremities, sensory changes, difficulty walking, frequent falls, dizziness, vertigo, behavioral changes, Slurred speech present or seizure-like activity Psych: Denies: anxiety, depression, suicidal ideation or homicidal ideation Endo: Denies: polyuria, polydipsia, tired all the time, cold intolerance or hot flashes Juan/Lymph: Denies: easy bruising or easy bleeding Medications/Allergies Home Medications ?Medication ?Instructions ?Recorded ?Confirmed ?Last Taken ?Type losartan 50 mg tablet See Rx Instructions .Route 0 12/03/24 01/29/25 01/29/25 08:00 Rx .COMPLEX #180 tabs tamsulosin 0.4 mg capsule (Flomax) 0.4 mg PO DAILY #90 caps 12/28/24 01/29/25 Unknown Rx nifedipine 90 mg tablet,extended See Rx Instructions . Route 01/15/25 01/29/25 01/22/25 07:00 Rx release 24 hr .COMPLEX #90 tabs acetaminophen 500 mg tablet 1,500 mg PO Q6H PRN Pain 0 01/29/25 01/29/25 01/28/25 History (Tylenol Extra Strength) ibuprofen 200 mg tablet (Advil) 600 mg PO Q6H PRN Pain 01/29/25 01/29/25 01/28/25 History oxycodone-acetaminophen 5 mg-325 1 tab PO Q4H PRN pain 01/29/25 01/29/25 01/29/25 08:00 History mg tablet (Percocet) Allergies Allergy/AdvReac Type Severity Reaction Status Date / Time No Known Allergies Allergy Verified 01/29/25 10:25 PFSH Acute 2 PFSH: Surgical History History of neck surgery Social History Smoking and tobacco/nicotine status: current every day tobacco/nicotine user cigarettes Packs smoked per day: 1 Alcohol intake: current Alcohol intake frequency: few times a month Alcohol type: hard liquor Vitals/I&O/Wt Last Vital Signs Temp 98.0 F 01/29/25 12:18 Pulse 124 H 01/29/25 12:18 Resp 16 01/29/25 12:18 BP 161/91 01/29/25 12:18 Pulse Ox 98 01/29/25 12:18 O2 Del Method Room Air 01/29/25 12:18 01/28/25 01/29/25 01/29/25 22:59 06:59 14:59 Intake Total 0 / 0 Balance 0 / 0 Weight last 48 hrs Weight 82.1 kg Physical Exam 2 Narrative: General: No acute distress, AO x3 HEENT: PERRLA, pupils bilaterally equal and reactive, pallors not present Chest: Normal vesicular breath sounds, no added sounds, equal good air entry bilaterally CVS: S1-S2 regular, no murmurs, no tachycardia, no gallops, no rubs Abdomen: Soft, nontender, no organomegaly, bowel sounds present Neuro: No focal deficits, no facial deformity, AO x3, power 5/5 in all limbs Data 01/29/25 12:49 01/29/25 12:49 Micro: Microbiology 01/29/25 12:49 Blood Culture - Preliminary Blood SPECIMEN COLLECTED 01/29/25 12:42 Blood Culture - Preliminary Blood SPECIMEN COLLECTED Other data: Radiology Impressions Abdomen/Pelvis CT 01/29/25 13:30 IMPRESSION: 1. Bilateral perinephric stranding with no obstruction. 2. Mesenteric edema with no ascites. 3. No GI tract obstruction or colitis. 4. New lytic lesion with loss of height in the RIGHT lateral L5 vertebral body since 01/15/2025. There is no adjacent mass. Possibility of a new compression fracture or metastatic lesion should be considered. There is an additional lytic area in the RIGHT lateral T10 vertebral body. Recommend follow-up MRI thoracic and lumbar spines with and without IV contrast. Bone scan may also be of benefit to evaluate the entire skeleton. 5. Mild compression of known L1 compression fracture and stable L2 compression fracture. 6. Scattered pancreatic calcifications from prior pancreatitis. 7. Spleen is top normal size. Laboratory Results WBC 3.56 10^3/uL (3.29-11.43) 01/29/25 12:49 RBC 2.42 10^6/uL (3.85-5.65) L 01/29/25 12:49 Hgb 8.10 g/dL (11.27-16.99) L 01/29/25 12:49 Hct 23.9 % (37-53) L 01/29/25 12:49 MCV 98.8 fl (82-101) 01/29/25 12:49 MCH 33.5 pg (27-33) H 01/29/25 12:49 MCHC 33.9 g/dL (30-55) 01/29/25 12:49 RDW 13.3 % (12.1-15.1) 01/29/25 12:49 Plt Count 105 10^3/cmm (157-399) L 01/29/25 12:49 MPV 9.7 fL (7.4-10.4) 01/29/25 12:49 Neut % (Auto) 56.5 % 01/29/25 12:49 Lymph % (Auto) 26.4 % 01/29/25 12:49 [place] % (Auto) 10.7 % 01/29/25 12:49 Eos % (Auto) 4.2 % 01/29/25 12:49 Baso % (Auto) 0.8 % 01/29/25 12:49 Neut # (Auto) 2.01 10^3/uL (1.8-7.7) 01/29/25 12:49 Lymph # (Auto) 0.9 10^3/uL (0.8-4.8) 01/29/25 12:49 [place] # (Auto) 0.4 10^3/uL (0.2-0.9) 01/29/25 12:49 Eos # (Auto) 0.2 10^3/uL (0.0-0.8) 01/29/25 12:49 Baso # (Auto) 0.0 10^3/uL (0.0-0.1) 01/29/25 12:49 Nucleated RBC % (auto) 0.8 % 01/29/25 12:49 Nucleated RBCs # 0.0 /100WBC 01/29/25 12:49 Peripher Smr Path Cons Sent for review 01/29/25 12:49 Sodium 134 mmol/L (136-145) L 01/29/25 12:49 Potassium 4.2 mmol/L (3.5-5.1) 01/29/25 12:49 Chloride 95 mmol/L (98-107) L 01/29/25 12:49 Carbon Dioxide 17 mmol/L (22-29) L 01/29/25 12:49 Anion Gap 26.2 (5-19) H 01/29/25 12:49 BUN 58 mg/dL (8-23) H 01/29/25 12:49 Creatinine 10.2 mg/dL (0.7-1.2) H* 01/29/25 12:49 GFR Calculation 5.1 mL/min (90-130) L 01/29/25 12:49 Glucose 107 mg/dL (65-115) 01/29/25 12:49 Calculated Osmolality 295 mOsm/kg (285-295) 01/29/25 12:49 Calcium 13.9 mg/dL (8.5-10.5) H* 01/29/25 12:49 Magnesium 2.5 mg/dL (1.7-2.3) H 01/29/25 12:49 Total Bilirubin 0.3 mg/dL (0.15-1.2) 01/29/25 12:49 AST 11 U/L (0-40) 01/29/25 12:49 ALT < 5 U/L (0-41) 01/29/25 12:49 Alkaline Phosphatase 55 U/L (40-130) 01/29/25 12:49 Creatine Kinase 60 U/L (39-308) 01/29/25 12:49 Total Protein 11.8 g/dL (6.6-8.7) H 01/29/25 12:49 Albumin 2.9 g/dL (3.5-5.2) L 01/29/25 12:49 Globulin 8.9 g/dL (1.3-4.6) H 01/29/25 12:49 Prostate Specific Ag 32.620 ng/mL (0-4) H 01/29/25 12:49 PTH Intact 9.2 pg/mL (15-65) L 01/29/25 12:49 Calcium (PTH Intact) 13.6 mg/dL (8.5-10.5) H 01/29/25 12:49 Urine Color Yellow (Yellow) 01/29/25 14:01 Urine Appearance Clear (CLEAR) 01/29/25 14:01 Urine pH 5.5 (5-7) 01/29/25 14:01 Ur Specific [place] 1.010 (1.005-1.030) 01/29/25 14:01 Urine Protein 2+ (Negative) A 01/29/25 14:01 Urine Glucose (UA) Negative (Normal) 01/29/25 14:01 Urine Ketones Negative (Negative) 01/29/25 14:01 Urine Blood 1+ (Negative) A 01/29/25 14:01 Urine Nitrate Negative (Negative) 01/29/25 14:01 Urine Bilirubin Negative (Negative) 01/29/25 14:01 Urine Urobilinogen 0.2 mg/dL (Negative) 01/29/25 14:01 Ur Leukocyte Esterase Negative (Negative) 01/29/25 14:01 Urine RBC 0-2 /hpf (0-2) 01/29/25 14:01 Urine WBC 0-5 /hpf (0-5) 01/29/25 14:01 Ur Squamous Epith Cells 0-5 /hpf (0-5) 01/29/25 14:01 Amorphous Sediment Not Reportable 01/29/25 14:01 Urine Bacteria None seen /hpf (NONE) 01/29/25 14:01 Hyaline Casts 3.30 /lpf 01/29/25 14:01 Urine Sperm 1+ /hpf 01/29/25 14:01 A&P Assessment and plan 1. Acute kidney injury: admit to med surg Creat at 9 No hyperkalemia at this time no uremic symptoms CT abdomen and pelvis without any obstrcution Jefferson catheter placed- no significant retention was encountered SPEP/UPEP/immunofixation may be related to recent NSAID use for back pain relief IVF NS @ 150 cc/ hr renal consulted from ER monitor BMP with hydration 2. Metastatic cancer: suspected metastatic prostate cancer based on recent history Bone scan ordered and previous requested from [facility] along with biopsy results ? vertebral biopsy depending on records that will be made available Spine surgery consulted 3. Hypercalcemia: IVF as above received calcitonin x 1 in the ER currently hol doff bisphosphonates unless calcium > 15 4. History of prostate cancer: records requested not started any treatment yet he reports he was recommneded radiation Plan: DVT ppx: heparin 5000 s/c q12h Full code PDMP PDMP Reviewed: Not Reviewed Attestations 2 Medical Necessity Statement*: > 2 midnight stay is anticipated Coding Level of Care Code Acute Code for Chg Fwd High MDM includes number and complexity of problems actively addressed during encounter, amount and/or complexity of data reviewed/ordered and described risk of complication, morbidity or mortality of management as documented Diagnoses Acute kidney injury N17.9 Metastatic cancer C79.9 Hypercalcemia E83.52 History of prostate cancer Z85.46
[2025-01-29 14:31] LABS: Glucose Urine UA Negative (Normal); Nitrate Urine Negative (Negative); Specific Gravity, Urine 1.010 (1.005-1.030)
[2025-01-29 14:34] LABS: Add Urine Microscopic? YES; Universal Test for UA Present (0)
[2025-01-29] MEDS: calcitonin,salmon 200 unit/mL SDV 2mL 100 UNIT SUBCUT (14:48)
[2025-01-29 14:49] LABS: UA Slide Review UA Slide Review Perf
--- NOTE | 2025-01-29 15:00 | PC.NURSE ---
this RN inserted awad catheter in pt, returned 600ml of urine. tolerated procedure well. secured with stat lock
[2025-01-29 15:14] LABS: LAB Peripheral Smear Sent for Review
[2025-01-29 15:30] LABS: Prostate Specific Antigen 32.620 ng/mL (0-4)
[2025-01-29] MEDS: heparin 5,000 unit/mL INJ 1 mL 5000 UNIT SUBCUT (17:15)
[2025-01-29 22:52] LABS: Anion Gap 24.7 (5-19); Blood Urea Nitrogen 54 mg/dL (8-23); Calcium 12.9 mg/dL (8.5-10.5); Carbon Dioxide 15 mmol/L (22-29); Chloride 100 mmol/L (98-107); Creatinine Clr Calc Pharmacy 6.8962; Glucose 98 mg/dL (65-115); Osmolality Calculated 295 mOsm/kg (285-295); Potassium 4.7 mmol/L (3.5-5.1); Sodium 135 mmol/L (136-145)
[2025-01-29 22:58] LABS: HIV 1 & 2 Antigen Non-Reactive (Non-Reactiv)
[2025-01-29 23:13] LABS: Hepatitis A Antibody IgM Non-Reactive (Nonreactive); Hepatitis B Surface Antigen Non-Reactive (Nonreactive)
[2025-01-30] VITALS (9 sets, daily range): BP systolic 132–172; BP diastolic 67–82; PULSE 79–93; RESP 16–20; TEMP 36.4–37.2; O2SAT 90–99
[2025-01-30] MEDS: morphine 4 mg/mL SDV 1 mL 2 MG IVP (00:49)
[2025-01-30] MEDS: ondansetron 2 mg/ML SDV 2 mL 4 MG IVP ×2 (00:51→17:38)
[2025-01-30] MEDS: heparin 5,000 unit/mL INJ 1 mL 5000 UNIT SUBCUT ×2 (02:32→16:35)
[2025-01-30 04:02] LABS: Hematocrit 21.7 % (37-53); Hemoglobin 7.20 g/dL (11.27-16.99); Mean Corpuscular HGB Conc 33.2 g/dL (30-55); Mean Corpuscular Hemoglobin 33.0 pg (27-33); Mean Corpuscular Volume 99.5 fl (82-101); Nucleated Red Blood Cells % 0.5 %; Platelet Count 99 10^3/cmm (157-399); Red Blood Count 2.18 10^6/uL (3.85-5.65); White Blood Count 3.90 10^3/uL (3.29-11.43)
[2025-01-30 04:24] LABS: Alanine Aminotransferase < 5 U/L (0-41); Albumin Level 2.6 g/dL (3.5-5.2); Alkaline Phosphatase 48 U/L (40-130); Anion Gap 21.8 (5-19); Aspartate Amino Transferase 10 U/L (0-40); Blood Urea Nitrogen 59 mg/dL (8-23); Calcium 12.0 mg/dL (8.5-10.5); Carbon Dioxide 16 mmol/L (22-29); Chloride 105 mmol/L (98-107); Creatinine Clr Calc Pharmacy 6.7010; Globulin 7.6 g/dL (1.3-4.6); Glucose 84 mg/dL (65-115); Osmolality Calculated 302 mOsm/kg (285-295); Potassium 4.8 mmol/L (3.5-5.1); Sodium 138 mmol/L (136-145); Total Protein 10.2 g/dL (6.6-8.7)
[2025-01-30] MEDS: citric acid-sodium citrate 30 mL UDC PO (05:19)
--- NOTE | 2025-01-30 08:59 | PC.NURSE ---
pt requested morphine to sleep, educ pt that we do not give morphine to sleep. f/u question to him was if he was hurting and pt stated, im not hurting i just want it to knock me out, so i can sleep.
[2025-01-30 10:11] LABS: PROTEIN, TOTAL 11.5 g/dL (6.1-8.1)
[2025-01-30] MEDS: calcitonin,salmon 200 unit/mL SDV 2mL 100 UNIT SUBCUT ×2 (10:27→16:36)
--- NOTE | 2025-01-30 10:42 | P.PN_ITS ---
Subjective 2 Subjective: Creatinine remains unchanged at 10 this morning. Urine output at 1600 cc. No hyperkalemia. Bicarb at 16. Medications: Reviewed: Yes Vitals/I&O/Wt Last Vital Signs Temp 98.4 F 01/30/25 07:17 Pulse 93 01/30/25 07:17 Resp 17 01/30/25 07:17 BP 132/80 01/30/25 07:17 Pulse Ox 91 01/30/25 07:17 O2 Del Method Nasal Cannula 01/30/25 07:17 01/29/25 01/30/25 01/30/25 22:59 06:59 14:59 Intake Total 1000 / 2000 815 / 2815 480 / 480 Output Total 900 / 900 700 / 1600 Balance 100 / 1100 115 / 1215 480 / 480 Weight last 48 hrs Weight 82.508 kg Weight 78.426 kg Weight 82.1 kg Physical Exam 2 Narrative: General: No acute distress, AO x3 HEENT: PERRLA, pupils bilaterally equal and reactive, pallors not present Chest: Normal vesicular breath sounds, no added sounds, equal good air entry bilaterally CVS: S1-S2 regular, no murmurs, no tachycardia, no gallops, no rubs Abdomen: Soft, nontender, no organomegaly, bowel sounds present Neuro: No focal deficits, no facial deformity, AO x3, power 5/5 in all limbs Data 01/30/25 02:53 01/30/25 02:53 Micro: Microbiology 01/29/25 12:49 Blood Culture - Preliminary Blood SPECIMEN COLLECTED 01/29/25 12:42 Blood Culture - Preliminary Blood SPECIMEN COLLECTED A&P Assessment and plan 1. Acute kidney injury: admit to med surg Creat at 9 No hyperkalemia at this time no uremic symptoms CT abdomen and pelvis without any obstrcution Jefferson catheter placed- no significant retention was encountered SPEP/UPEP/immunofixation may be related to recent NSAID use for back pain relief IVF NS @ 150 cc/ hr renal consulted from ER monitor BMP with hydration 2. Metastatic cancer: suspected metastatic prostate cancer based on recent history Bone scan ordered and previous requested from [facility] along with biopsy results ? vertebral biopsy depending on records that will be made available Spine surgery consulted 3. Hypercalcemia: IVF as above received calcitonin x 1 in the ER currently hol doff bisphosphonates unless calcium > 15 4. History of prostate cancer: records requested not started any treatment yet he reports he was recommneded radiation Plan: DVT ppx: heparin 5000 s/c q12h Full code January 30, 2025 Creatinine remains unchanged. Bicarb at 16 today. No hyperkalemia. Urine output at 1600 cc. Pending most labs including immunofixation, peripheral smear, SPEP UPEP sent yesterday. PSA at 32. Records requested from [facility] are still awaited. Continue IV fluids for hypercalcemia. Calcium at 12.0 today from 13.9 yesterday. Appreciate nephrology recommendations. Continue to hold all nephrotoxic medications including NSAIDs and losartan. Anemia noted with hemoglobin at 7.2. Check iron TIBC ferritin TSI, B12 folate, peripheral smear and reticulocyte index. LFTs noted normal, unlikely hemolysis. Findings of lytic lesions on CT may be lifeline representatives of bony mets from prostate cancer however with his constellation of symptoms including anemia, renal failure not explained by prostatomegaly or outflow obstruction, reversed albumin globulin ratio, still concerned about hematological malignancy such as multiple myeloma. Bone scan has been requested. May benefit from biopsy of the lytic lesion with spine surgery. Records awaited from [facility], final decision to be made with regards to biopsy based on available records. PDMP PDMP Reviewed: Not Reviewed Attestations 2 Medical Necessity Statement*: Continued admission for renal failure, needs further evaluation for suspected metastatic malignancy Coding Level of Care Code Acute Code for Chg Fwd Diagnoses Acute kidney injury N17.9 Metastatic cancer C79.9 Hypercalcemia E83.52 History of prostate cancer Z85.46
[2025-01-30 11:52] LABS: Hematocrit 22.3 % (37-53); Retic Production Index 0.61
--- NOTE | 2025-01-30 12:09 | P.CONIM_ITS ---
Providers/Reason For Consult 2 Consulting Physician/Specialty*: Hospitalist Reason for Consult*: Back pain Attending Physician: Evie Marie MD Primary Care Provider: Yulissa Mariscal NP History of Present Illness History of Present Illness Gamal Yanez is a 69 year old male was scheduled to have surgery on 02/01/2025. However upon getting labs patient's in renal failure. His creatinine was 10. Patient was also noted to have CT scan of chest abdomen pelvis which showed lesions at T10 and L5 patient has been diagnosed recently with prostate cancer as well. Did discuss doing radiofrequency ablation of the lesions in the spine. However this point we will hold off and let the workup continue to figure out exactly why he is in renal failure and we can proceed this electively at another time. Review of Systems 2 General: Reports: 10 or more systems reviewed and unremarkable except in HPI and below Const: Denies: fever(s), chills or body aches Eyes: Denies: change in vision, blurry vision or photophobia ENMT: Reports: hoarseness; Denies: throat pain, enlarged tonsils, odynophagia or nasal congestion Card: Denies: chest pain, palpitations, irregular heart rhythm, edema, swelling of feet/ankles, lightheadedness, pre-syncope, dyspnea on exertion or orthopnea Resp: Denies: dyspnea, productive cough, non-productive cough, wheezing, stridor, pain on inspiration, change in phlegm color, hemoptysis or chest congestion GI: Denies: abdominal pain, nausea, vomiting, hematemesis, coffee ground emesis, dysphagia, heartburn, diarrhea, constipation, GI cramping, change in stool character, hematochezia or melena : Denies: flank pain, dysuria, urinary frequency, urinary urgency, urinary hesitancy or hematuria Musc: Denies: neck pain, back pain, extremity pain, joint swelling, joint warmth or deformity Neuro: Denies: headache(s), numbness in extremities, weakness in extremities, sensory changes, difficulty walking, frequent falls, dizziness, vertigo, behavioral changes, Slurred speech present or seizure-like activity Psych: Denies: anxiety, depression, suicidal ideation or homicidal ideation Endo: Denies: polyuria, polydipsia, tired all the time, cold intolerance or hot flashes Juan/Lymph: Denies: easy bruising or easy bleeding Medications/Allergies Home Medications ?Medication ?Instructions ?Recorded ?Confirmed ?Last Taken ?Type losartan 50 mg tablet See Rx Instructions .Route 0 12/03/24 01/29/25 01/29/25 08:00 Rx .COMPLEX #180 tabs tamsulosin 0.4 mg capsule (Flomax) 0.4 mg PO DAILY #90 caps 12/28/24 01/29/25 Unknown Rx nifedipine 90 mg tablet,extended See Rx Instructions . Route 01/15/25 01/29/25 01/22/25 07:00 Rx release 24 hr .COMPLEX #90 tabs acetaminophen 500 mg tablet 1,500 mg PO Q6H PRN Pain 0 01/29/25 01/29/25 01/28/25 History (Tylenol Extra Strength) ibuprofen 200 mg tablet (Advil) 600 mg PO Q6H PRN Pain 01/29/25 01/29/25 01/28/25 History oxycodone-acetaminophen 5 mg-325 1 tab PO Q4H PRN pain 01/29/25 01/29/25 01/29/25 08:00 History mg tablet (Percocet) Allergies Allergy/AdvReac Type Severity Reaction Status Date / Time No Known Allergies Allergy Verified 01/29/25 10:25 Current Medications Generic Name Dose Route Start Last Admin Trade Name Freq PRN Reason Stop Dose Admin Calcitonin [place] 100 unit 01/29/25 15:00 01/30/25 10:27 Calcitonin,[place] 200 Unit/Ml Sdv 2ml SUBCUT 01/31/25 14:59 100 unit BID JANICE Administration Heparin Sodium (Porcine) 5,000 unit 01/29/25 15:00 01/30/25 02:32 Heparin 5,000 Unit/Ml Inj 1 Ml SUBCUT 5,000 unit Q12H JANICE Administration Morphine Sulfate 2 mg 01/29/25 14:50 01/30/25 00:49 Morphine 4 Mg/Ml Sdv 1 Ml IVP 2 mg Q4H PRN Administration SEVERE PAIN Ondansetron HCl 4 mg 01/29/25 14:50 01/30/25 00:51 Ondansetron 2 Mg/Ml Sdv 2 Ml IVP 4 mg Q8H PRN Administration vomiting, or N/V if npo Pantoprazole Sodium 40 mg 01/30/25 09:00 01/30/25 08:[address] 40 Mg Tablet PO 40 mg DAILY JANICE Administration PFSH Acute 2 PFSH: Surgical History History of neck surgery Social History Smoking and tobacco/nicotine status: current every day tobacco/nicotine user cigarettes Packs smoked per day: 1 Alcohol intake: current Alcohol intake frequency: few times a month Alcohol type: hard liquor Vitals/I&O/Wt Last Vital Signs Temp 97.7 F 01/30/25 11:30 Pulse 79 01/30/25 11:30 Resp 17 01/30/25 11:30 BP 141/71 01/30/25 11:30 Pulse Ox 95 01/30/25 11:30 O2 Del Method Nasal Cannula 01/30/25 11:30 01/29/25 01/30/25 01/30/25 22:59 06:59 14:59 Intake Total 1000 / 2000 815 / 2815 1480 / 1480 Output Total 900 / 900 700 / 1600 450 / 450 Balance 100 / 1100 115 / 1215 1030 / 1030 Weight last 48 hrs Weight 181 lb 14.4 oz Weight 172 lb 14.4 oz Weight 181 lb Physical Exam 2 Narrative: Alert and oriented x 3 Head is normocephalic atraumatic Respirations are intact No evidence of any rashes or infection 5/5 strength in bilateral upper and lowe r extremities Sensation intact in all extremities Deep tendon reflexes 2 out of 4 bilateral upper and lower extremities Data 01/30/25 11:38 01/30/25 02:53 Micro: Microbiology 01/29/25 12:49 Blood Culture - Preliminary Blood SPECIMEN COLLECTED 01/29/25 12:42 Blood Culture - Preliminary Blood SPECIMEN COLLECTED A&P Assessment and plan 1. Lumbar stenosis with neurogenic claudication: Will follow along. At this point patient's diagnosis of prostate cancer is likely what the lesions are. Did discuss doing radiofrequency ablation for possible pain control. However at this point will wait and do this more electively once the workup is complete. PDMP PDMP Reviewed: Not Reviewed Coding Level of Care Code Acute Code for g Fwd Diagnoses Lumbar stenosis with neurogenic claudication M48.062
[2025-01-30 12:15] LABS: Alanine Aminotransferase < 5 U/L (0-41); Albumin Level 2.6 g/dL (3.5-5.2); Alkaline Phosphatase 47 U/L (40-130); Anion Gap 23.4 (5-19); Aspartate Amino Transferase 10 U/L (0-40); Blood Urea Nitrogen 60 mg/dL (8-23); Calcium 11.9 mg/dL (8.5-10.5); Carbon Dioxide 17 mmol/L (22-29); Chloride 101 mmol/L (98-107); Creatinine Clr Calc Pharmacy 6.6663; Ferritin 500 ng/mL (30-400); Globulin 7.9 g/dL (1.3-4.6); Glucose 106 mg/dL (65-115); Iron 79 ug/dL (59-158); Osmolality Calculated 301 mOsm/kg (285-295); Potassium 4.4 mmol/L (3.5-5.1); Sodium 137 mmol/L (136-145); Total Iron Binding Capacity 115 mcg/dl; Total Protein 10.5 g/dL (6.6-8.7); Transferrin 106 mg/dL (200-360); Unsaturated Iron Binding 36 ug/dL (112-347)
[2025-01-30] MEDS: FUROsemide 10 mg/mL SDV 10mL 80 MG IVP (12:17)
[2025-01-30] MEDS: oxyCODONE 5 mg IR Tab/Cap PO ×2 (12:23→21:17)
--- NOTE | 2025-01-30 12:26 | P.PN_ITS ---
Subjective 2 Subjective: on 2L NC Medications: Reviewed: Yes Vitals/I&O/Wt Last Vital Signs Temp 97.7 F 01/30/25 11:30 Pulse 79 01/30/25 11:30 Resp 18 01/30/25 12:23 BP 141/71 01/30/25 11:30 Pulse Ox 95 01/30/25 11:30 O2 Del Method Nasal Cannula 01/30/25 11:30 01/29/25 01/30/25 01/30/25 22:59 06:59 14:59 Intake Total 1000 / 2000 815 / 2815 1480 / 1480 Output Total 900 / 900 700 / 1600 450 / 450 Balance 100 / 1100 115 / 1215 1030 / 1030 Weight last 48 hrs Weight 82.508 kg Weight 78.426 kg Weight 82.1 kg Physical Exam 2 Narrative: Patient is awake alert, no distress, on room air No JVD, PERRLA S1-S2 regular rate and rhythm per report Lungs clear decreased breath sounds bilaterally per report Abdomen soft nontender per report No pedal edema Data 01/30/25 11:38 01/30/25 11:38 Micro: Microbiology 01/29/25 12:49 Blood Culture - Preliminary Blood SPECIMEN COLLECTED 01/29/25 12:42 Blood Culture - Preliminary Blood SPECIMEN COLLECTED A&P Assessment and plan 1. Acute kidney injury: 2. Hypercalcemia: Plan: 1. Acute kidney injury: Likely multifactorial in the setting of recent NSAID use, prerenal ZELDA due to poor p.o. intake and severe hypercalcemia. - Plan for aggressive IV fluid resuscitation, also ordered calcitonin, if no improvement discussed with patient and patient's daughter at bedside regarding possible dialysis. Strict intake and output. - move to CSU and watch closely No obstruction on CT, urine analysis noted with 2+ protein and 1+ blood. - SPEP UPEP pending, 2. Severe hypercalcemia: Malignancy induced likely, avoiding bisphosphonates due to renal insufficiency, ordered calcitonin, Would benefit from denosumab, will initiate in-house if available. 3. Metabolic acidosis: In the setting of severe ZELDA, switched IV fluids to bicarbonate drip. 4. Hypertension: Avoid CHASITY inhibitors, resume nifedipine 5. Metastatic prostate cancer , Patient evaluated using audiovisual cart. Time spent 40 minutes. PDMP PDMP Reviewed: Not Reviewed Attestations 2 Medical Necessity Statement*: per [facility] Coding Level of Care Code Acute Code for Chg Fwd Diagnoses Acute kidney injury N17.9 Hypercalcemia E83.52
[2025-01-30 12:30] LABS: Vitamin B12 180 pg/mL (232-1245)
[2025-01-30 15:27] LABS: Anion Gap 21.4 (5-19); Blood Urea Nitrogen 60 mg/dL (8-23); Calcium 11.8 mg/dL (8.5-10.5); Carbon Dioxide 17 mmol/L (22-29); Chloride 99 mmol/L (98-107); Creatinine Clr Calc Pharmacy 6.7910; Glucose 110 mg/dL (65-115); Osmolality Calculated 294 mOsm/kg (285-295); Potassium 4.4 mmol/L (3.5-5.1); Sodium 133 mmol/L (136-145)
[2025-01-30 23:12] LABS: Alanine Aminotransferase < 5 U/L (0-41); Albumin Level 2.5 g/dL (3.5-5.2); Alkaline Phosphatase 49 U/L (40-130); Anion Gap 23.2 (5-19); Aspartate Amino Transferase 11 U/L (0-40); Blood Urea Nitrogen 53 mg/dL (8-23); Calcium 11.7 mg/dL (8.5-10.5); Carbon Dioxide 19 mmol/L (22-29); Chloride 96 mmol/L (98-107); Creatinine Clr Calc Pharmacy 6.9868; Globulin 7.7 g/dL (1.3-4.6); Glucose 116 mg/dL (65-115); Osmolality Calculated 293 mOsm/kg (285-295); Potassium 4.2 mmol/L (3.5-5.1); Sodium 134 mmol/L (136-145); Total Protein 10.2 g/dL (6.6-8.7)
[2025-01-31] VITALS (51 sets, daily range): BP systolic 103–174; BP diastolic 51–87; PULSE 66–91; RESP 10–41; TEMP 36.5–37.3; O2SAT 87–95
[2025-01-31 03:20] LABS: Creatinine, Random Urine 87 mg/dL (20-320); Protein, Total, Random 7 mg/dL (5-25); Protein/Creatinine Ratio 0.080 (0.025-0.148); Protein/Creatinine Ratio 80 mg/g creat (25-148)
[2025-01-31] MEDS: heparin 5,000 unit/mL INJ 1 mL 5000 UNIT SUBCUT (04:05)
[2025-01-31] MEDS: albumin 25 G/100 ML BAG 60 G IV (06:32)
[2025-01-31] MEDS: calcitonin,salmon 200 unit/mL SDV 2mL 100 UNIT SUBCUT (09:14)
--- NOTE | 2025-01-31 10:43 | P.PN_ITS ---
Subjective 2 Subjective: no new c/o Medications: Reviewed: Yes Vitals/I&O/Wt Last Vital Signs Temp 97.7 F 01/31/25 08:19 Pulse 91 01/31/25 08:19 Resp 16 01/31/25 08:19 BP 174/87 01/31/25 08:19 Pulse Ox 91 01/31/25 08:19 O2 Del Method Room Air 01/31/25 08:19 01/30/25 01/31/25 01/31/25 22:59 06:59 14:59 Intake Total 1065 / 2905 1610 / 1610 Output Total 950 / 1400 450 / 1850 Balance 115 / 1505 -450 / 1055 1610 / 1610 Weight last 48 hrs Weight 82.917 kg Weight 82.508 kg Weight 78.426 kg Weight 82.1 kg Physical Exam 2 Narrative: Patient is awake alert, no distress, on room air No JVD, PERRLA S1-S2 regular rate and rhythm per report Lungs clear decreased breath sounds bilaterally per report Abdomen soft nontender per report No pedal edema Urinary Catheter Management: [place]: Cath Placed During This Visit: no Reason for Continuing Indwelling Catheter: Other Data 01/30/25 11:38 01/30/25 22:35 Micro: Microbiology 01/29/25 12:42 Blood Culture - Preliminary Blood Bacillus subtilis Micrococcus Species 01/29/25 12:49 Blood Culture - Preliminary Blood NEGATIVE TO DATE A&P Assessment and plan 1. Acute kidney injury: 2. Hypercalcemia: Plan: 1. Acute kidney injury: Likely multifactorial in the setting of recent NSAID use, prerenal ZELDA due to poor p.o. intake and severe hypercalcemia. - Plan for aggressive IV fluid resuscitation, no improvement in renal fxn so far, awaiting repeat BMP , - discussed with patient regarding possible dialysis if no improvement on repeat BMP , Strict intake and output. No obstruction on CT, urine analysis noted with 2+ protein and 1+ blood. - SPEP UPEP pending, 2. Severe hypercalcemia: corrected calcium - 12.9 today , Malignancy induced likely, avoiding bisphosphonates due to renal insufficiency, ordered calcitonin, will inititate denosumab 3. Metabolic acidosis: In the setting of severe ZELDA, switched IV fluids to bicarbonate drip. 4. Hypertension: Avoid CHASITY inhibitors, resume nifedipine 5. Metastatic prostate cancer , Patient evaluated using audiovisual cart. Time spent 40 minutes. PDMP PDMP Reviewed: Not Reviewed Attestations 2 Medical Necessity Statement*: per [facility] Coding Level of Care Code Acute Code for Chg Fwd Diagnoses Acute kidney injury N17.9 Hypercalcemia E83.52
[2025-01-31] MEDS: denosumab 120 mg SDV SUBCUT (10:44)
[2025-01-31] MEDS: NIFEdipine ER (24 hr) 30 mg Tablet 90 MG PO (10:45)
[2025-01-31] MEDS: oxyCODONE 5 mg IR Tab/Cap PO ×3 (10:45→23:18)
--- NOTE | 2025-01-31 10:50 | USCV_ITS ---
Gamal Yanez Age: 69 Gender: M : 1955 Exam Date: 01/31/2025 15:08 Ordering Phys: Avril Bowie MD Technologist: Peng Doan Exam Location: [facility] [place] Indication: chf BP: 153 / 75 HR: 77 Rhythm: Sinus Technical Quality: Adequate MEASUREMENTS (Male / Female) Normal Values 2D ECHO LV Diastolic Diameter PLAX 6.1 cm 4.2 - 5.9 / 3.9 - 5.3 cm IVS Diastolic Thickness 1.3 cm 0.6 - 1.0 / 0.6 - 0.9 cm IVS Systolic Thickness 1.5 cm LVPW Diastolic Thickness 0.9 cm 0.6 - 1.0 / 0.6 - 0.9 cm LVPW Systolic Thickness 1.5 cm LVOT Diameter 2.0 cm LV Ejection Fraction 2D Teich 56.8 % LV Ejection Fraction MOD 4C 54.5 % LV Ejection Fraction MOD 2C 51.1 % LV Ejection Fraction 2C AL 51.4 % LA Diameter 4.1 cm RA Systolic Volume 4C AL 27.6 ml RA Systolic Volume 4C MOD 27.8 ml Aorta at Sinotubular Diameter 2.4 cm IVC Diameter 2.4 cm M-MODE LA Ao Ratio MM 1.5 AV Cusp Separation MM 2.0 cm DOPPLER AV Peak Velocity 198.0 cm/s AV Area Cont Eq vti 2.2 cm squared AV Area Cont Eq pk 2.2 cm squared MV Peak Velocity 133.0 cm/s MV Area PHT 5.3 cm squared Mitral E to A Ratio 0.8 TV Peak Velocity 298.5 cm/s TR Peak Velocity 314.0 cm/s TR Peak Gradient 39.4 mmHg TR Mean Velocity 258.0 cm/s TR Mean Gradient 27.9 mmHg TR Velocity Time Integral 84.1 cm PV Peak Velocity 101.3 cm/s RV Ejection Time 0.4 s FINDINGS Left Ventricle Normal left ventricular size, systolic function and wall thickness, with no regional wall motion abnormalities. Left ventricular ejection fraction is estimated at 60 %. Grade I/IV diastolic dysfunction (abnormal relaxation filling pattern), normal to mildly elevated filling pressures. Right Ventricle The right ventricle is normal in size and function. Right Atrium The right atrium is normal in size. Left Atrium The left atrium is normal in size. Mitral Valve Mildly thickened mitral valve. No mitral valve stenosis. Mild mitral valve regurgitation. Aortic Valve Structurally normal aortic valve without significant sclerosis or stenosis. There is no aortic regurgitation. Tricuspid Valve Trace tricuspid valve regurgitation. Pulmonic Valve Structurally normal pulmonic valve without significant stenosis. There is no pulmonic regurgitation. Pericardium Normal pericardium without effusion. Aorta Normal ascending aorta dimension. IVC The inferior vena cava appears normal. CONCLUSIONS Normal left ventricular size, systolic function and wall thickness, with no regional wall motion abnormalities. Left ventricular ejection fraction is estimated at 60 %. Grade I/IV diastolic dysfunction (abnormal relaxation filling pattern), normal to mildly elevated filling pressures. Mildly thickened mitral valve. No mitral valve stenosis. Mild mitral valve regurgitation. Trace tricuspid valve regurgitation. There is no pericardial effusion. Right atrial pressure is around 5 mm of mercury. Arabella Villanueva MD (Electronically Signed) Final Date: 31 January 2025 16:30 S
[2025-01-31 11:09] LABS: Alanine Aminotransferase < 5 U/L (0-41); Albumin Level 2.9 g/dL (3.5-5.2); Alkaline Phosphatase 47 U/L (40-130); Anion Gap 23.0 (5-19); Aspartate Amino Transferase 11 U/L (0-40); Blood Urea Nitrogen 58 mg/dL (8-23); Calcium 11.6 mg/dL (8.5-10.5); Calcium 11.9 mg/dL (8.5-10.5); Carbon Dioxide 23 mmol/L (22-29); Chloride 96 mmol/L (98-107); Globulin 7.7 g/dL (1.3-4.6); Glucose 123 mg/dL (65-115); Osmolality Calculated 304 mOsm/kg (285-295); Potassium 4.0 mmol/L (3.5-5.1); Sodium 138 mmol/L (136-145); Total Protein 10.6 g/dL (6.6-8.7)
[2025-01-31 11:13] LABS: Creatinine Clr Calc Pharmacy 6.3883
--- NOTE | 2025-01-31 13:39 | P.CONIM_ITS ---
Providers/Reason For Consult 2 Consulting Physician/Specialty*: Dr. Valenzuela general surgery Reason for Consult*: Dialysis catheter placement Attending Physician: Evie Marie MD Primary Care Provider: Yulissa Mariscal NP History of Present Illness History of Present Illness Gamal Yanez is a 69 year old male who presented in ZELDA. Nephrology requesting temporary dialysis catheter. No other relevant history. Medications/Allergies Home Medications ?Medication ?Instructions ?Recorded ?Confirmed ?Last Taken ?Type losartan 50 mg tablet See Rx Instructions .Route 0 12/03/24 01/29/25 01/29/25 08:00 Rx .COMPLEX #180 tabs tamsulosin 0.4 mg capsule (Flomax) 0.4 mg PO DAILY #90 caps 12/28/24 01/29/25 Unknown Rx nifedipine 90 mg tablet,extended See Rx Instructions . Route 01/15/25 01/29/25 01/22/25 07:00 Rx release 24 hr .COMPLEX #90 tabs acetaminophen 500 mg tablet 1,500 mg PO Q6H PRN Pain 0 01/29/25 01/29/25 01/28/25 History (Tylenol Extra Strength) ibuprofen 200 mg tablet (Advil) 600 mg PO Q6H PRN Pain 01/29/25 01/29/25 01/28/25 History oxycodone-acetaminophen 5 mg-325 1 tab PO Q4H PRN pain 01/29/25 01/29/25 01/29/25 08:00 History mg tablet (Percocet) Allergies Allergy/AdvReac Type Severity Reaction Status Date / Time No Known Allergies Allergy Verified 01/29/25 10:25 Current Medications Generic Name Dose Route Start Last Admin Trade Name Freq PRN Reason Stop Dose Admin Calcitonin [place] 100 unit 01/29/25 15:00 01/31/25 09:14 Calcitonin,[place] 200 Unit/Ml Sdv 2ml SUBCUT 01/31/25 14:59 100 unit BID JANICE Administration Heparin Sodium (Porcine) 5,000 unit 01/29/25 15:00 01/31/25 04:05 Heparin 5,000 Unit/Ml Inj 1 Ml SUBCUT 5,000 unit Q12H JANICE Administration Sodium Bicarbonate 150 meq/ 1,150 mls @ 100 mls/hr 01/30/25 11:30 01/31/25 09:15 Dextrose IV 100 mls/hr .[id number] JANICE Administration Morphine Sulfate 2 mg 01/29/25 14:50 01/30/25 00:49 Morphine 4 Mg/Ml Sdv 1 Ml IVP 2 mg Q4H PRN Administration SEVERE PAIN Nifedipine 90 mg 01/31/25 10:30 01/31/25 10:45 Nifedipine Er (24 Hr) 30 Mg Tablet PO 90 mg DAILY JANICE Administration Ondansetron HCl 4 mg 01/29/25 14:50 01/30/25 17:38 Ondansetron 2 Mg/Ml Sdv 2 Ml IVP 4 mg Q8H PRN Administration vomiting, or N/V if npo Oxycodone HCl 5 mg 01/29/25 16:33 01/31/25 10:45 Oxycodone 5 Mg Ir Tab/Cap PO 5 mg Q6H PRN Administration MODERATE PAIN Pantoprazole Sodium 40 mg 01/30/25 09:00 01/31/25 09:[address] 40 Mg Tablet PO 40 mg DAILY JANICE Administration PFSH Acute 2 PFSH: Surgical History History of neck surgery Social History Smoking and tobacco/nicotine status: current every day tobacco/nicotine user cigarettes Packs smoked per day: 1 Alcohol intake: current Alcohol intake frequency: few times a month Alcohol type: hard liquor Vitals/I&O/Wt Last Vital Signs Temp 98 F 01/31/25 11:53 Pulse 74 01/31/25 11:53 Resp 18 01/31/25 11:53 BP 153/75 01/31/25 11:53 Pulse Ox 92 01/31/25 11:53 O2 Del Method Room Air 01/31/25 11:53 01/30/25 01/31/25 01/31/25 22:59 06:59 14:59 Intake Total 1065 / 2905 1610 / 1610 Output Total 950 / 1400 450 / 1850 Balance 115 / 1505 -450 / 1055 1610 / 1610 Weight last 48 hrs Weight 182 lb 12.8 oz Weight 181 lb 14.4 oz Weight 172 lb 14.4 oz Physical Exam 2 Narrative: Chest: Unlabored breathing room air. No lymphadenopathy. Heart: Regular rate and rhythm. Abdomen: Soft, nontender, nondistended. No masses or lymphadenopathy. Bilateral groins: Palpable pulses. Urinary Catheter Management: [place]: Cath Placed During This Visit: no Reason for Continuing Indwelling Catheter: Other Data 01/30/25 11:38 01/31/25 10:30 Micro: Microbiology 01/29/25 12:42 Blood Culture - Preliminary Blood Bacillus subtilis Micrococcus Species 01/29/25 12:49 Blood Culture - Preliminary Blood NEGATIVE TO DATE A&P Assessment and plan 1. Acute kidney injury: Plan: 69-year-old male who presented in ZELDA. Surgery consulted for placement of temporary dialysis catheter. Discussed risk and benefits and patient agreed to proceed with temporary dialysis catheter placement. PDMP PDMP Reviewed: Not Reviewed Coding Level of Care Code 84908 Diagnoses Acute kidney injury N17.9
--- NOTE | 2025-01-31 15:32 | PM.PN ---
Subjective Subjective: Creatinine is worsening today at 11.4. Urine output at 1400 cc. Calcium at 11.9.Bicarb 23 on a bicarb infusion. He is yet to have a bowel movement to check fecal occult blood. Blood culture today reported positive for bacillus and micrococcus species. Medications: Reviewed: Yes Vitals/I&O/Wt Last Vital Signs Temp 98 F 01/31/25 11:53 Pulse 74 01/31/25 11:53 Resp 18 01/31/25 11:53 BP 153/75 01/31/25 11:53 Pulse Ox 92 01/31/25 11:53 O2 Del Method Room Air 01/31/25 11:53 01/31/25 01/31/25 01/31/25 06:59 14:59 22:59 Intake Total 1610 / 1610 Output Total 450 / 1850 Balance -450 / 1055 1610 / 1610 Weight last 48 hrs Weight 82.917 kg Weight 82.508 kg Weight 78.426 kg Physical Exam Narrative: General: No acute distress, AO x3 HEENT: PERRLA, pupils bilaterally equal and reactive, pallors not present Chest: Normal vesicular breath sounds, no added sounds, equal good air entry bilaterally CVS: S1-S2 regular, no murmurs, no tachycardia, no gallops, no rubs Abdomen: Soft, nontender, no organomegaly, bowel sounds present Neuro: No focal deficits, no facial deformity, AO x3, power 5/5 in all limbs Urinary Catheter Management: Jefferson: Cath Placed During This Visit: no Reason for Continuing Indwelling Catheter: Other Data 01/30/25 11:38 01/31/25 10:30 Micro: Microbiology 01/29/25 12:42 Blood Culture - Preliminary Blood Bacillus subtilis Micrococcus Species 01/29/25 12:49 Blood Culture - Preliminary Blood NEGATIVE TO DATE A&P Assessment and plan 1. Acute kidney injury: admit to med surg Creat at 9 No hyperkalemia at this time no uremic symptoms CT abdomen and pelvis without any obstrcution Jefferson catheter placed- no significant retention was encountered SPEP/UPEP/immunofixation may be related to recent NSAID use for back pain relief IVF NS @ 150 cc/ hr renal consulted from ER monitor BMP with hydration 2. Metastatic cancer: suspected metastatic prostate cancer based on recent history Bone scan ordered and previous requested from [facility] along with biopsy results ? vertebral biopsy depending on records that will be made available Spine surgery consulted 3. Hypercalcemia: IVF as above received calcitonin x 1 in the ER currently hol doff bisphosphonates unless calcium > 15 4. History of prostate cancer: records requested not started any treatment yet he reports he was recommneded radiation Plan: DVT ppx: heparin 5000 s/c q12h Full code January 30, 2025 Creatinine remains unchanged. Bicarb at 16 today. No hyperkalemia. Urine output at 1600 cc. Pending most labs including immunofixation, peripheral smear, SPEP UPEP sent yesterday. PSA at 32. Records requested from [facility] are still awaited. Continue IV fluids for hypercalcemia. Calcium at 12.0 today from 13.9 yesterday. Appreciate nephrology recommendations. Continue to hold all nephrotoxic medications including NSAIDs and losartan. Anemia noted with hemoglobin at 7.2. Check iron TIBC ferritin TSI, B12 folate, peripheral smear and reticulocyte index. LFTs noted normal, unlikely hemolysis. Findings of lytic lesions on CT may be administrative representative of bony mets from prostate cancer however with his constellation of symptoms including anemia, renal failure not explained by prostatomegaly or outflow obstruction, reversed albumin globulin ratio, still concerned about hematological malignancy such as multiple myeloma. Bone scan has been requested. May benefit from biopsy of the lytic lesion with spine surgery. Records awaited from [facility], final decision to be made with regards to biopsy based on available records. January 30, 2025 Creatinine is worsening today at 11.2. Urine output 1400 cc. Patient is appearing to be slightly more lethargic today. Takes longer to respond to questions. States he was unable to sleep overnight. While he was having diarrhea previously, now he is constipated. Will add stool softeners, FOB has unable to be obtained. Blood culture from admission on 01/29/2025 is showing growth of bacillus septa less and micrococcus species. Favor these to be contaminants, however in reviewing prior scans from September 2024 there was note made of swollen parapharyngeal tonsils increase soft tissue base of the tongue involving soft palate and several small fluid collections in the left parapharyngeal tonsil. It was favored to be inflammatory/abscesses at the time however neoplasm was not excluded. Will obtain repeat imaging of the neck and chest given isolation of micrococcus species for source evaluation. Start empiric treatment with piperacillin/tazobactam. Patient is going to be starting dialysis today in view of worsening creatinine and increasing lethargy. He will be transferred to the ICU where a temporary HD catheter will be placed at bedside and dialysis will be initiated. Echocardiogram additionally ordered today to evaluate for possible cardiorenal disease. Biopsy of the lumbar vertebrae deferred for now in view of bacteremia, initiation of dialysis, not optimized for surgery at this point. Prior records have been obtained from [facility] which included CT of the abdomen and pelvis from December 09, 2024 which was negative for any metastatic lymph nodes in the abdomen. Prostate was noted to be enlarged and slightly thick-walled urinary bladder. There were small inguinal lymph nodes without pronounced inguinal lymphadenopathy. There were no blastic lesions on the bones. Also reviewed bone scan from December 09, 2024 which did not show any abnormal activity along the skull long bones spine pelvis or ribs. There was no evidence of metastatic disease. Prostate biopsy results are not available as they are not available in the [facility]. His prostate biopsy was likely performed at the outpatient surgical center and we will need to follow-up with his outpatient urologist office to obtain these results. PSA is a 32 while previously being at 40. Bone scan has been ordered for tomorrow morning to further assess the extent of Lytic metastatic lesions. DVT prophylaxis heparin 5000 subcutaneous every 12 hours. Closely monitor hemoglobin trend. Today is at 7.2 without any overt signs of bleeding. Will repeat this evening, transfusion threshold to be at 7. Resume antihypertensive regimen with nifedipine 90 mg p.o. daily as he takes at home. Continue to hold losartan. Additional as needed hydralazine added. PDMP PDMP Reviewed: Not Reviewed Attestations Medical Necessity Statement*: Patient to initiate dialysis today, hopefully anticipated short-term dialysis, bactremi aneeding iv abx , rpt blood cx Coding Level of Care Code Acute Code for Chg Fwd High MDM includes number and complexity of problems actively addressed during encounter, amount and/or complexity of data reviewed/ordered and described risk of complication, morbidity or mortality of management as documented Diagnoses Acute kidney injury N17.9 Metastatic cancer C79.9 Hypercalcemia E83.52 History of prostate cancer Z85.46
--- NOTE | 2025-01-31 15:54 | CT_ITS ---
WS: [id number] CT NECK TECHNIQUE: Noncontrast CT of the neck with coronal and sagittal reformatted images. CLINICAL INFORMATION: assess for palatine mass COMPARISON: 10/13/2024 DLP: 851.[address] scans at [facility] use at least one of these dose optimization techniques: automated exposure control; mA and/or kV adjustment per patient size (includes targeted exams where dose is matched to clinical indication); or iterative reconstruction. FINDINGS: Persistent low-attenuation collections in the LEFT tonsil/base of tongue with additional persistent low-attenuation masslike collection in the base of tongue and vallecula with increased soft tissue thickening. This is difficult to visualize on this noncontrast study but appears persistent since 10/13/2024. Findings suspicious for neoplasm Parotid glands are normal. Normal submandibular glands. No cervical lymphadenopathy. Lung apices appear well aerated. Prior postoperative changes ACDF C5-C7. CT/CT neck wo con [id number] IMPRESSION: Limited evaluation due to lack of IV contrast 1. Persistent indeterminant low-attenuation collections in the LEFT parapharyn geal tonsil and base of tongue filling the RIGHT vallecula with increase of tis les thickening. This is difficult to further detail on this study but appears p ersistent compared to the prior contrast-enhanced neck CT concerning for neopla sm. Recommend follow-up endoscopy. 2. No cervical lymphadenopathy. 3. No other acute findings.
--- NOTE | 2025-01-31 15:54 | CT_ITS ---
WS: [id number] CT CHEST TECHNIQUE: Noncontrast CT of the chest with coronal and sagittal reformatted images. CLINICAL INFORMATION: metastatic malignancy COMPARISON: CT abdomen/pelvis 01/29/2025 DLP: 851.[address] scans at [facility] use at least one of these dose optimization techniques: automated exposure control; mA and/or kV adjustment per patient size (includes targeted exams where dose is matched to clinical indication); or iterative reconstruction. FINDINGS: Small bilateral pleural effusions. Compressive atelectasis in the lung bases. Lungs are otherwise well aerated. Aortic calcification. Coronary calcification. Small esophageal hiatal hernia. No mediastinal or hilar lymphadenopathy. Again seen is a lytic lesion in the T10 vertebral body eccentric to the RIGHT. Additional lytic lesion in T2 vertebral body. Prior ACDF in the cervical spine. CT/CT chest wo con [id number] IMPRESSION: 1. Again seen is a lytic lesion in the T10 vertebral body eccentric to the RIG HT. Recommend follow-up bone scan. Additional lytic lesion in T2 vertebral body 2. Small bilateral pleural effusions. Compressive atelectasis in the lung base s. 3. Lungs are otherwise well aerated.
[2025-01-31] MEDS: piperacillin-tazobactam 3.375 GM in sodium chloride 0.9% (plus) 50 ML IV (16:26)
[2025-01-31] MEDS: lactulose oral liq 20 gm/30 mL UDC 10 GM PO (16:36)
--- NOTE | 2025-01-31 17:09 | PM.ACPR ---
Procedure/Consent Consent: Consent for Procedure: Consent obtained from patient Procedure Narrative: Discussed risks and benefits and consent was obtained to performed a temporary dialysis catheter. The right groin was prepped and draped in the usual sterile fashion. Ultrasound was used to identify the right common femoral vein. Local infiltration done using 5 cc of 1% lidocaine. A finder needle was used to access the right common femoral vein under ultrasound guidance. Able to draw venous blood. I then threaded a wire through the finder needle. I removed the needle and confirmed adequate placement of the wire in the right common femoral vein using ultrasound. Using an 11 blade a stab incision was done next to the wire to accommodate for the dilators. I serially dilated the tract using 2 dilators. I was then able to place the 20 cm dual-lumen temporary dialysis catheter using the Seldinger technique. I was able to draw blood and flushed easily through both lumens. Catheter was secured in place with sutures. A sterile dressing was applied. Catheter is ready for immediate use.
[2025-01-31] MEDS: heparin, porcine 1,000 unit/mL INJ 10 mL 10000 UNIT HE (18:55)
--- NOTE | 2025-01-31 18:57 | PC.NURSE ---
Received patient from [facility] surge staff at 1554. Patient is awake, alert and oriented to person, place, time, and situation, BP: 135/70, HR: 77, RR: 15, SPO2: 90 on room air. Nurse oriented patient on room and treatment plan.
--- NOTE | 2025-01-31 18:58 | PC.NURSE ---
Nurse assisted Dr Valenzuela with dialysis catheter placement. Taken to CT shortly after.
[2025-01-31 22:25] LABS: Hemoglobin 6.90 g/dL (11.27-16.99); Mean Corpuscular HGB Conc 33.3 g/dL (30-55); Mean Corpuscular Hemoglobin 32.2 pg (27-33); Mean Corpuscular Volume 96.7 fl (82-101); Nucleated Red Blood Cells % 1.3 %; Platelet Count 107 10^3/cmm (157-399); Red Blood Count 2.14 10^6/uL (3.85-5.65); White Blood Count 3.84 10^3/uL (3.29-11.43)
[2025-01-31 22:42] LABS: Alanine Aminotransferase < 5 U/L (0-41); Albumin Level 2.8 g/dL (3.5-5.2); Alkaline Phosphatase 47 U/L (40-130); Anion Gap 18.3 (5-19); Aspartate Amino Transferase 12 U/L (0-40); Blood Urea Nitrogen 25 mg/dL (8-23); Calcium 11.4 mg/dL (8.5-10.5); Carbon Dioxide 26 mmol/L (22-29); Chloride 94 mmol/L (98-107); Creatinine Clr Calc Pharmacy 12.1378; Globulin 7.6 g/dL (1.3-4.6); Glucose 110 mg/dL (65-115); Hematocrit 20.7 % (37-53); Osmolality Calculated 285 mOsm/kg (285-295); Potassium 3.3 mmol/L (3.5-5.1); Sodium 135 mmol/L (136-145); Total Protein 10.4 g/dL (6.6-8.7)
[2025-01-31] MEDS: MELATONIN 3 MG TABLET PO (23:18)
--- NOTE | 2025-01-31 23:49 | PC.NURSE ---
Blood Patient's hemoglobin level 6.9. Informed Dr Saucedo who ordered 1 unit packed red blood cells to be given. This nurse received a second order for [address] Marie. Contacted [address] Saucedo as to whether he wanted 1 unit given or 2 units. He ordered to give 1 unit PRBC only.
[2025-02-01] VITALS (161 sets, daily range): BP systolic 99–132; BP diastolic 48–103; PULSE 60–95; RESP 0–26; TEMP 37.1–37.6; O2SAT 77–98
[2025-02-01 00:37] LABS: Hepatitis B Surface Antigen Non-Reactive (Nonreactive)
[2025-02-01] MEDS: piperacillin-tazobactam 3.375 GM in sodium chloride 0.9% (plus) 50 ML IV ×2 (04:43→16:59)
[2025-02-01 05:39] LABS: Hematocrit 22.2 % (37-53); Hemoglobin 7.40 g/dL (11.27-16.99); Mean Corpuscular HGB Conc 33.3 g/dL (30-55); Mean Corpuscular Hemoglobin 31.5 pg (27-33); Mean Corpuscular Volume 94.5 fl (82-101); Nucleated Red Blood Cells % 1.4 %; Platelet Count 124 10^3/cmm (157-399); Red Blood Count 2.35 10^6/uL (3.85-5.65); White Blood Count 3.63 10^3/uL (3.29-11.43)
[2025-02-01 06:01] LABS: Magnesium 2.0 mg/dL (1.7-2.3)
[2025-02-01 06:06] LABS: Alanine Aminotransferase < 5 U/L (0-41); Albumin Level 2.8 g/dL (3.5-5.2); Alkaline Phosphatase 44 U/L (40-130); Anion Gap 18.6 (5-19); Aspartate Amino Transferase 11 U/L (0-40); Blood Urea Nitrogen 29 mg/dL (8-23); Calcium 10.8 mg/dL (8.5-10.5); Carbon Dioxide 28 mmol/L (22-29); Chloride 94 mmol/L (98-107); Creatinine Clr Calc Pharmacy 9.6355; Globulin 7.2 g/dL (1.3-4.6); Glucose 108 mg/dL (65-115); Osmolality Calculated 290 mOsm/kg (285-295); Potassium 3.6 mmol/L (3.5-5.1); Sodium 137 mmol/L (136-145); Total Protein 10.0 g/dL (6.6-8.7)
[2025-02-01] MEDS: ondansetron 2 mg/ML SDV 2 mL 4 MG IVP (08:23)
[2025-02-01] MEDS: NIFEdipine ER (24 hr) 30 mg Tablet 90 MG PO (09:21)
[2025-02-01 11:24] LABS: KAPPA LIGHT CHAIN, FREE, SERUM 24.0 mg/L (3.3-19.4); KAPPA/LAMBDA LIGHT CHAINS FREE 0.01 (0.26-1.65); LAMBDA LIGHT CHAIN, FREE, SERU 2477.2 mg/L (5.7-26.3)
[2025-02-01] MEDS: oxyCODONE 5 mg IR Tab/Cap PO ×2 (11:42→20:06)
--- NOTE | 2025-02-01 13:38 | PM.PN ---
Subjective Subjective: S/P HD last night Medications: Reviewed: Yes Vitals/I&O/Wt Last Vital Signs Temp 98.8 F 02/01/25 04:50 Pulse 75 02/01/25 11:00 Resp 16 02/01/25 11:42 BP 113/56 02/01/25 11:00 Pulse Ox 94 02/01/25 11:42 O2 Del Method Nasal Cannula 01/31/25 18:35 O2 Flow Rate 2 01/31/25 18:35 01/31/25 02/01/25 02/01/25 22:59 06:59 14:59 Intake Total 2212.083 / 3822.083 267.917 / 4090.000 1023.333 / 1023.333 Output Total 2500 / 2800 525 / 3325 Balance -287.917 / 1022.083 -257.083 / 617.941 0571.333 / 1023.333 Weight last 48 hrs Weight 79.107 kg Weight 79.5 kg Weight 82.917 kg Physical Exam Narrative: Patient is awake alert, no distress, on room air No JVD, PERRLA S1-S2 regular rate and rhythm per report Lungs clear decreased breath sounds bilaterally per report Abdomen soft nontender per report No pedal edema Urinary Catheter Management: Jefferson: Cath Placed During This Visit: no Reason for Continuing Indwelling Catheter: Accurate Measurement of Urinary Output in Critically Ill Patients Data 02/01/25 04:55 02/01/25 04:55 Micro: Microbiology 02/01/25 04:49 Blood Culture - Preliminary Blood SPECIMEN COLLECTED 02/01/25 04:45 Blood Culture - Preliminary Blood SPECIMEN COLLECTED 01/29/25 12:42 Blood Culture - Preliminary Blood Bacillus subtilis Micrococcus Species A&P Assessment and plan 1. Acute kidney injury: 2. Hypercalcemia: Plan: 1. Acute kidney injury: Likely multifactorial in the setting of recent NSAID use, prerenal ZELDA due to poor p.o. intake and severe hypercalcemia. -renal fxn failed to improve after aggressive fluid resuscitation -s/p temporary HD catheter placement and HD done yesterday -monitor labs and eval daily for HD needs - Suspect pt needs [facility] HD No obstruction on CT, urine analysis noted with 2+ protein and 1+ blood. - SPEP with high lambda light chains , and abnormal ratio - Immunofixation pending - request hematology eval 2. Severe hypercalcemia: , Malignancy induced likely, avoiding bisphosphonates due to renal insufficiency, ordered calcitonin, S/P denosumab 3. Metabolic acidosis: In the setting of severe ZELDA, improved with hD 4. Hypertension: Avoid CHASITY inhibitors, resume nifedipine 5. Metastatic prostate cancer , Patient evaluated using audiovisual cart. Time spent 40 minutes. PDMP PDMP Reviewed: Not Reviewed Attestations Medical Necessity Statement*: per [facility] Coding Level of Care Code Acute Code for Chg Fwd Diagnoses Acute kidney injury N17.9 Hypercalcemia E83.52
--- NOTE | 2025-02-01 13:54 | P.PN_ITS ---
Subjective 2 Subjective: Temporary dialysis catheter functional Vitals/I&O/Wt Last Vital Signs Temp 98.8 F 02/01/25 04:50 Pulse 75 02/01/25 11:00 Resp 16 02/01/25 11:42 BP 113/56 02/01/25 11:00 Pulse Ox 94 02/01/25 11:42 O2 Del Method Nasal Cannula 01/31/25 18:35 O2 Flow Rate 2 01/31/25 18:35 01/31/25 02/01/25 02/01/25 22:59 06:59 14:59 Intake Total 2212.083 / 3822.083 267.917 / 4090.000 1023.333 / 1023.333 Output Total 2500 / 2800 525 / 3325 Balance -287.917 / 1022.083 -257.083 / 888.067 3710.333 / 1023.333 Weight last 48 hrs Weight 174 lb 6.4 oz Weight 175 lb 4.28 oz Weight 182 lb 12.8 oz Physical Exam 2 Narrative: Chest: Unlabored breathing room air. No lymphadenopathy. Heart: Regular rate and rhythm. Abdomen: Soft, nontender, nondistended. No masses or lymphadenopathy. Right groin: Temporary dialysis catheter functional and in place Urinary Catheter Management: Jefferson: Cath Placed During This Visit: no Reason for Continuing Indwelling Catheter: Accurate Measurement of Urinary Output in Critically Ill Patients Data 02/01/25 04:55 02/01/25 04:55 Micro: Microbiology 02/01/25 04:49 Blood Culture - Preliminary Blood SPECIMEN COLLECTED 02/01/25 04:45 Blood Culture - Preliminary Blood SPECIMEN COLLECTED 01/29/25 12:42 Blood Culture - Preliminary Blood Bacillus subtilis Micrococcus Species A&P Assessment and plan 1. Acute kidney injury: Plan: 69-year-old male with ZELDA. Temporary dialysis catheter functional. Will remain available should patient require tunneled dialysis catheter. PDMP PDMP Reviewed: Not Reviewed Attestations 2 Medical Necessity Statement*: N/A Coding Level of Care Code 53786 Diagnoses Acute kidney injury N17.9
--- NOTE | 2025-02-01 14:50 | NM_ITS ---
WS: [id number] NUCLEAR MEDICINE WHOLE BODY BONE SCAN HISTORY: Skeletal survery for suspected malignancy, history of prostate cancer. COMPARISON: CT scan 01/29/2025 TECHNIQUE: The patient was injected with 23.9 mCi of Technetium 99m HDP and serial whole-body scintigrams have been performed with anterior and posterior images. No significant uptake noted within the L5 or T10 vertebral bodies. There is mild increased uptake in L1 secondary to a a known fracture. No increased uptake at T2. The lytic lesions previously described are not identified by bone scan. No increased uptake within the ribs. Moderate bilateral AC and glenohumeral joint arthropathy. Mild increased uptake at the SI joints may be from sacroiliitis. Moderate bilateral knee joint arthropathy. Normal soft tissue uptake. Renal uptake is identified. NM/NM bone scan whole body* [id number] IMPRESSION: 1. No evidence for metastatic disease to the bony skeleton. 2. Degenerative arthropathy at the SC joints and the knee joints. 3. Mild bilateral sacroiliitis. 4. Mild increased uptake at L1 from a prior fracture.
--- NOTE | 2025-02-01 15:38 | PC.NURSE ---
Patient wants to restrict information to just his ella and his Daughter Syed. THey believe that other family members may pose as an syed or ella on the phone to get information. We will use the code 1481. If any person calls to get information on this patient, they must provide this code before information is given. Code also taped to outside of physical chart.
--- NOTE | 2025-02-01 15:56 | PC.SOCIAL ---
IMM Update Updated pt on IMM. No questions voiced. Provided pt a copy. Initialed, dated, & timed a copy & placed in chart.
--- NOTE | 2025-02-01 16:57 | P.PN_ITS ---
Subjective 2 Medications: Medication Review Details: Bone scan negative, continuing with dialysis. Vitals/I&O/Wt Last Vital Signs Temp 99.7 F H 02/01/25 14:35 Pulse 74 02/01/25 14:35 Resp 13 02/01/25 14:35 BP 111/49 02/01/25 14:35 Pulse Ox 93 02/01/25 14:35 O2 Del Method Nasal Cannula 02/01/25 14:35 O2 Flow Rate 2 02/01/25 14:35 02/01/25 02/01/25 02/01/25 06:59 14:59 22:59 Intake Total 267.917 / 4090.000 1488.333 / 1488.333 Output Total 525 / 3325 100 / 100 Balance -257.083 / 582.914 2605.333 / 1388.333 Weight last 48 hrs Weight 79.107 kg Weight 79.5 kg Weight 82.917 kg Physical Exam 2 Const: COMMON NORMALS: no acute distress, average body habitus and patient oriented x3 HENMT: COMMON NORMALS: normocephalic and atraumatic HEAD & SCALP: n ormocephalic and atraumatic Eye: COMMON NORMALS: Equal, round and reactive pupils present and EOMs intact bilaterally PUPIL: Yes Equal, round and reactive pupils present Resp: COMMON NORMALS: normal respiratory effort, No retractions and clear to auscultation bilaterally AUSCULTATION: clear to auscultation bilaterally Cardio: COMMON NORMALS: regular rate, regular rhythm, No gallops present (Cardio), No murmurs present (Cardio) and No rub (Cardio) RATE: regular rate RHYTHM: regular rhythm GI: COMMON NORMALS: Soft to palpation, non-tender, no masses and no bruits PALPATION: Yes Soft to palpation Extremity: OTHER: TDC below right groin on thigh, no erythema or edema, some tenderness. Neuro: COMMON NORMALS: patient oriented x3 Urinary Catheter Management: Jefferson: Cath Placed During This Visit: no Reason for Continuing Indwelling Catheter: Accurate Measurement of Urinary Output in Critically Ill Patients Data 02/01/25 04:55 02/01/25 04:55 Micro: Microbiology 02/01/25 04:49 Blood Culture - Preliminary Blood SPECIMEN COLLECTED 02/01/25 04:45 Blood Culture - Preliminary Blood SPECIMEN COLLECTED A&P Assessment and plan 1. Metastatic cancer: 2. Hypercalcemia: 3. History of prostate cancer: 4. Acute kidney injury: Plan: 69 year old male presenting with ZELDA 1. Acute kidney injury: admit to med surg Creat at 9 on admission, now decreasing on dialysis No hyperkalemia at this time no uremic symptoms CT abdomen and pelvis without any obstrcution Jefferson catheter placed- no significant retention was encountered SPEP/UPEP/immunofixation may be related to recent NSAID use for back pain relief IVF NS @ 150 cc/ hr renal consulted from ER monitor BMP with hydration 2. Metastatic cancer: suspected metastatic prostate cancer based on recent history - Bone scan ordered, no bone/lytic lesions apparent. - [facility] performed prostate biopsy, patient states this was 2 months ago and he has discussed results with physicians. - PSA is 32 here, previously 40 Spine surgery consulted 3. Hypercalcemia: IVF as above received calcitonin x 1 in the ER currently hol doff bisphosphonates unless calcium > 15 4. History of prostate cancer: records requested not started any treatment yet he reports he was recommended radiation Disposition - cont. dialysis per nephrology recs. No lytic lesions on bone scan. PDMP PDMP Reviewed: Not Reviewed Attestations 2 Medical Necessity Statement*: cont. inpatient for dialysis. Time Spent in Patient Care: 16 - 35 minutes (>than 50% of time sp ent in counselling and/or direct pt care on unit) . Critical Care Time: The high probability of a clinically significant, sudden or life threatening deterioration of the patient's [] system(s) required my full and direct attention, intervention and personal management. The critical care time is as shown. This time is in addition to time spent performing any reported procedures but includes the following: [x] Data and vital sign review and interpretation [x] Patient assessment, examination and intervention [x] Documentation [x] Medication orders and management Critical Care Time (min): 30 Coding Level of Care Code Acute Code for Chg Fwd Diagnoses Metastatic cancer C79.9 Hypercalcemia E83.52 History of prostate cancer Z85.46 Acute kidney injury N17.9
--- NOTE | 2025-02-01 18:38 | PC.NURSE ---
Shift SUmmary: Uneventful shift. Patient rested for most of the day. Prefers not to have a lot of monitoring on him, frequently checked vitals and then removed monitoring throughout the day and he remained within normal limits. Remains on 2L NC. Was finally able to sleep, slept for most of the day. Nephrology rounded. Did not do dialysis today, will reassess tomorrow. Total urine output: 625mL Patient would like a code to be used before giving information to anyone. Code: 1481. see previous nurse notes
[2025-02-01] MEDS: MELATONIN 3 MG TABLET PO (20:07)
[2025-02-02] VITALS (20 sets, daily range): BP systolic 117–137; BP diastolic 58–96; PULSE 69–91; RESP 16–25; TEMP 36.7–37.7; O2SAT 89–95
[2025-02-02 02:40] LABS: Hematocrit 22.2 % (37-53); Hemoglobin 7.30 g/dL (11.27-16.99); Mean Corpuscular HGB Conc 32.9 g/dL (30-55); Mean Corpuscular Hemoglobin 32.0 pg (27-33); Mean Corpuscular Volume 97.4 fl (82-101); Nucleated Red Blood Cells % 2.2 %; Platelet Count 116 10^3/cmm (157-399); Red Blood Count 2.28 10^6/uL (3.85-5.65); White Blood Count 4.14 10^3/uL (3.29-11.43)
[2025-02-02 03:09] LABS: Anion Gap 19.7 (5-19); Blood Urea Nitrogen 34 mg/dL (8-23); Calcium 10.8 mg/dL (8.5-10.5); Carbon Dioxide 29 mmol/L (22-29); Chloride 92 mmol/L (98-107); Creatinine Clr Calc Pharmacy 8.5907; Glucose 98 mg/dL (65-115); Osmolality Calculated 292 mOsm/kg (285-295); Potassium 3.7 mmol/L (3.5-5.1); Sodium 137 mmol/L (136-145)
[2025-02-02] MEDS: lactulose oral liq 20 gm/30 mL UDC 10 GM PO (04:44)
[2025-02-02] MEDS: piperacillin-tazobactam 3.375 GM in sodium chloride 0.9% (plus) 50 ML IV ×2 (04:44→15:30)
--- NOTE | 2025-02-02 06:36 | PM.PN ---
Subjective Subjective: events noted Medications: Reviewed: Yes Vitals/I&O/Wt Last Vital Signs Temp 99.1 F 02/02/25 04:00 Pulse 78 02/02/25 06:00 Resp 17 02/02/25 06:00 BP 128/86 02/02/25 06:00 Pulse Ox 91 02/02/25 06:00 O2 Del Method Nasal Cannula 02/02/25 06:00 O2 Flow Rate 3 02/02/25 06:00 02/01/25 02/01/25 02/02/25 14:59 22:59 06:59 Intake Total 1488.333 / 1488.333 150 / 1638.333 120 / 1758.333 Output Total 100 / 100 750 / 850 Balance 1388.333 / 1388.333 150 / 1538.333 -630 / 908.333 Weight last 48 hrs Weight 79.107 kg Weight 79.5 kg Physical Exam Narrative: Patient is awake alert, no distress, on room air No JVD, PERRLA S1-S2 regular rate and rhythm per report Lungs clear decreased breath sounds bilaterally per report Abdomen soft nontender per report No pedal edema Urinary Catheter Management: Jefferson: Cath Placed During This Visit: no Reason for Continuing Indwelling Catheter: Accurate Measurement of Urinary Output in Critically Ill Patients Data 02/02/25 02:33 02/02/25 02:33 Micro: Microbiology 02/01/25 04:45 Blood Culture - Preliminary Blood NEGATIVE TO DATE 02/01/25 04:49 Blood Culture - Preliminary Blood NEGATIVE TO DATE A&P Assessment and plan 1. Acute kidney injury: 2. Hypercalcemia: Plan: 1. Acute kidney injury: Likely multifactorial in the setting of recent NSAID use, prerenal ZELDA due to poor p.o. intake and severe hypercalcemia. 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 - SPEP with high lambda light chains , and abnormal ratio - Immunofixation pending - request hematology eval 2. Severe hypercalcemia: , Malignancy induced likely, avoiding bisphosphonates due to renal insufficiency, ordered calcitonin, S/P denosumab 3. Metabolic acidosis: In the setting of severe ZELDA, improved with hD 4. Hypertension: Avoid CHASITY inhibitors, resume nifedipine 5. Metastatic prostate cancer , Patient evaluated using audiovisual cart. Time spent 40 minutes. PDMP PDMP Reviewed: Not Reviewed Attestations Medical Necessity Statement*: per medicine Coding Level of Care Code Acute Code for Chg Fwd Diagnoses Acute kidney injury N17.9 Hypercalcemia E83.52
[2025-02-02] MEDS: oxyCODONE 5 mg IR Tab/Cap PO ×2 (06:48→20:07)
[2025-02-02] MEDS: NIFEdipine ER (24 hr) 30 mg Tablet 90 MG PO (08:11)
[2025-02-02 10:30] LABS: Albumin,Urine Random 0 %; Alpha-1-Globulins Urine Random 0 %; Alpha-2-Globulins Urine Random 0 %; Beta-Globulin,Urine Random 0 %; Gamma Globulin,Urine Random 0 %
[2025-02-02] MEDS: heparin, porcine 1,000 unit/mL INJ 10 mL 10000 UNIT HE (10:52)
[2025-02-02] MEDS: heparin, porcine 1,000 unit/mL INJ 10 mL 10000 UNIT INTRACATH (10:52)
--- NOTE | 2025-02-02 12:49 | P.PN_ITS ---
Subjective 2 Subjective: Temporary dialysis catheter in right groin working Vitals/I&O/Wt Last Vital Signs Temp 98.2 F 02/02/25 10:08 Pulse 69 02/02/25 11:00 Resp 22 H 02/02/25 11:00 BP 130/70 02/02/25 11:00 Pulse Ox 91 02/02/25 06:48 O2 Del Method Nasal Cannula 02/02/25 06:00 O2 Flow Rate 3 02/02/25 06:00 02/01/25 02/02/25 02/02/25 22:59 06:59 14:59 Intake Total 150 / 1638.333 120 / 1758.333 290 / 290 Output Total 750 / 850 Balance 150 / 1538.333 -630 / 908.333 290 / 290 Weight last 48 hrs Weight 174 lb 6.4 oz Weight 175 lb 4.28 oz Physical Exam 2 Narrative: Chest: Unlabored breathing room air. No lymphadenopathy. Heart: Regular rate and rhythm. Abdomen: Soft, nontender, nondistended. No masses or lymphadenopathy. Right groin temporary dialysis catheter working Urinary Catheter Management: Jefferson: Cath Placed During This Visit: no Reason for Continuing Indwelling Catheter: Accurate Measurement of Urinary Output in Critically Ill Patients Data 02/02/25 02:33 02/02/25 02:33 Micro: Microbiology 02/01/25 04:45 Blood Culture - Preliminary Blood NEGATIVE TO DATE 02/01/25 04:49 Blood Culture - Preliminary Blood NEGATIVE TO DATE A&P Assessment and plan 1. Acute kidney injury: Plan: 69-year-old male status post temporary dialysis catheter placement. Catheter working. Will remain available should he need a tunneled dialysis catheter. PDMP PDMP Reviewed: Not Reviewed Attestations 2 Medical Necessity Statement*: N/A Coding Level of Care Code 46970 Diagnoses Acute kidney injury N17.9
--- NOTE | 2025-02-02 13:53 | P.PN_ITS ---
Subjective 2 Subjective: getting dialysis today. Vitals/I&O/Wt Last Vital Signs Temp 98.2 F 02/02/25 10:08 Pulse 88 02/02/25 13:00 Resp 18 02/02/25 13:00 BP 130/95 02/02/25 13:00 Pulse Ox 91 02/02/25 06:48 O2 Del Method Nasal Cannula 02/02/25 06:00 O2 Flow Rate 3 02/02/25 06:00 02/01/25 02/02/25 02/02/25 22:59 06:59 14:59 Intake Total 150 / 1638.333 120 / 1758.333 410 / 410 Output Total 750 / 850 Balance 150 / 1538.333 -630 / 908.333 410 / 410 Weight last 48 hrs Weight 79.107 kg Weight 79.5 kg Physical Exam 2 Const: COMMON NORMALS: no acute distress, average body habitus and patient oriented x3 HENMT: COMMON NORMALS: normocephalic and atraumatic HEAD & SCALP: n ormocephalic and atraumatic Eye: COMMON NORMALS: Equal, round and reactive pupils present and EOMs intact bilaterally PUPIL: Yes Equal, round and reactive pupils present Resp: COMMON NORMALS: normal respiratory effort, No retractions and clear to auscultation bilaterally AUSCULTATION: clear to auscultation bilaterally Cardio: COMMON NORMALS: regular rate, regular rhythm, No gallops present (Cardio), No murmurs present (Cardio) and No rub (Cardio) RATE: regular rate RHYTHM: regular rhythm GI: COMMON NORMALS: Soft to palpation, non-tender, no masses and no bruits PALPATION: Yes Soft to palpation Extremity: OTHER: TDC below right groin on thigh, no erythema or edema, some tenderness. Neuro: COMMON NORMALS: patient oriented x3 Urinary Catheter Management: Jefferson: Cath Placed During This Visit: no Reason for Continuing Indwelling Catheter: Accurate Measurement of Urinary Output in Critically Ill Patients Data 02/02/25 02:33 02/02/25 02:33 Micro: Microbiology 02/01/25 04:45 Blood Culture - Preliminary Blood NEGATIVE TO DATE 02/01/25 04:49 Blood Culture - Preliminary Blood NEGATIVE TO DATE A&P Assessment and plan 1. Hypercalcemia: 2. History of prostate cancer: 3. Acute kidney injury: Plan: 69 year old male presenting with ZELDA 1. Acute kidney injury: admit to med surg Creat up to 11 on admission, now decreasing on dialysis - recent heavy NSAID use No hyperkalemia at this time no uremic symptoms CT abdomen and pelvis without any obstrcution Jefferson catheter placed- no significant retention was encountered SPEP with high lambda light chains, abnormal ration - immunofixation renal consulted from ER monitor BMP with hydration 2. Metastatic cancer: suspected metastatic prostate cancer based on recent history - Bone scan ordered, no bone/lytic lesions apparent. - [facility] performed prostate biopsy, patient states this was 2 months ago and he has discussed results with physicians. - PSA is 32 here, previously 40 Spine surgery consulted 3. Hypercalcemia: received calcitonin - s/p denosumab - improving 4. History of prostate cancer: records requested not started any treatment yet he reports he was recommended radiation Disposition - cont. dialysis per nephrology recs. No lytic lesions on bone scan. PDMP PDMP Reviewed: Not Reviewed Attestations 2 Medical Necessity Statement*: ongoing inpatient care for dialysis Time Spent in Patient Care: 16 - 35 minutes (>than 50% of time sp ent in counselling and/or direct pt care on unit) . Coding Level of Care Code Acute Code for Chg Fwd Diagnoses Hypercalcemia E83.52 History of prostate cancer Z85.46 Acute kidney injury N17.9
--- NOTE | 2025-02-02 15:55 | PC.NURSE ---
Report called to Carolann GREEN
[2025-02-02] MEDS: MELATONIN 3 MG TABLET PO (20:07)
[2025-02-02] MEDS: sodium chlor 0.9% + KCl 20 mEq 20 MEQ/1,000 ML BAG 100 MEQ IV (23:29)
[2025-02-03] VITALS: BP 150/84; PULSE 88; RESP 17; TEMP 37.9; O2SAT 91
[2025-02-03 04:00] VITALS: BP 126/70; PULSE 92; RESP 17; TEMP 37.5; O2SAT 90
[2025-02-03] MEDS: piperacillin-tazobactam 3.375 GM in sodium chloride 0.9% (plus) 50 ML IV ×2 (04:11→16:32)
[2025-02-03] MEDS: lactulose oral liq 20 gm/30 mL UDC 10 GM PO (04:12)
[2025-02-03 04:53] LABS: Hematocrit 24.4 % (37-53); Hemoglobin 7.70 g/dL (11.27-16.99); Mean Corpuscular HGB Conc 31.6 g/dL (30-55); Mean Corpuscular Hemoglobin 32.2 pg (27-33); Mean Corpuscular Volume 102.1 fl (82-101); Nucleated Red Blood Cells % 3.2 %; Platelet Count 140 10^3/cmm (157-399); Red Blood Count 2.39 10^6/uL (3.85-5.65); White Blood Count 3.10 10^3/uL (3.29-11.43)
[2025-02-03 05:12] LABS: Anion Gap 21.7 (5-19); Blood Urea Nitrogen 28 mg/dL (8-23); Calcium 10.8 mg/dL (8.5-10.5); Carbon Dioxide 22 mmol/L (22-29); Chloride 95 mmol/L (98-107); Creatinine Clr Calc Pharmacy 9.5813; Glucose 97 mg/dL (65-115); Osmolality Calculated 285 mOsm/kg (285-295); Potassium 3.7 mmol/L (3.5-5.1); Sodium 135 mmol/L (136-145)
[2025-02-03 05:35] LABS: Slide Review Slide Review Perform
[2025-02-03 07:30] VITALS: BP 124/75; PULSE 90; RESP 15; TEMP 37.8; O2SAT 90
[2025-02-03] MEDS: sodium chlor 0.9% + KCl 20 mEq 20 MEQ/1,000 ML BAG 100 MEQ IV (08:34)
[2025-02-03] MEDS: NIFEdipine ER (24 hr) 30 mg Tablet 90 MG PO (09:10)
--- NOTE | 2025-02-03 11:04 | P.PN_ITS ---
Subjective 2 Subjective: Dialysis catheter functional Vitals/I&O/Wt Last Vital Signs Temp 100.1 F H 02/03/25 07:30 Pulse 90 02/03/25 07:30 Resp 15 02/03/25 07:30 BP 124/75 02/03/25 07:30 Pulse Ox 90 02/03/25 07:30 O2 Del Method Nasal Cannula 02/03/25 07:30 O2 Flow Rate 2 02/03/25 07:30 02/02/25 02/03/25 02/03/25 22:59 06:59 14:59 Intake Total 440 / 1350 1018.333 / 1018.333 Output Total 900 / 3900 Balance 440 / -1650 -900 / -2550 1018.333 / 1018.333 Weight last 48 hrs Weight 173 lb Weight 177 lb 7.554 oz Physical Exam 2 Narrative: Chest: Unlabored breathing room air. No lymphadenopathy. Heart: Regular rate and rhythm. Abdomen: Soft, nontender, nondistended. No masses or lymphadenopathy. Right temporary dialysis catheter in place and functional Urinary Catheter Management: Jefferson: Cath Placed During This Visit: no Reason for Continuing Indwelling Catheter: Accurate Measurement of Urinary Output in Critically Ill Patients Data 02/03/25 04:32 02/03/25 04:32 A&P Assessment and plan 1. Acute kidney injury: Plan: 69-year-old male with ZELDA. Temporary dialysis catheter functional. Will remain available if he needs a tunneled dialysis catheter. PDMP PDMP Reviewed: Not Reviewed Attestations 2 Medical Necessity Statement*: N/A Coding Level of Care Code 62523 Diagnoses Acute kidney injury N17.9
[2025-02-03 11:24] VITALS: BP 132/72; PULSE 87; RESP 16; TEMP 37.4; O2SAT 90
[2025-02-03 12:58] LABS: ALPHA 1 GLOBULIN 0.2 g/dL (0.2-0.3); ALPHA 2 GLOBULIN 0.5 g/dL (0.5-0.9); BETA 1 GLOBULIN 0.4 g/dL (0.4-0.6); BETA 2 GLOBULIN 0.4 g/dL (0.2-0.5)
--- NOTE | 2025-02-03 13:46 | P.DS_ITS ---
Discharge Providers Date of Admission: 01/29/25 13:56 Date of Discharge: February 03, 2025 Attending Provider at Admission: Evie Marie MD Attending Provider at Discharge: Boris Patrick MD Consults: Nephrology Primary Care Provider: Yulissa Mariscal NP Diagnoses at Discharge Discharge Diagnosis 1. Acute kidney injury: Reason for Visit Reason for Visit: Abnormal Labs Brief History: 69 year old male presenting with ZELDA Hospital Course Hospital Course 1. Acute kidney injury: Multifactorial: recent heavy NSAID use, probable new diagnosis of Multiple Myeloma. admit to med surg Creat up to 11 on admission, now decreasing on dialysis, although appears to have plateaued around 6-7. Nephrology following to manage dialysis No hyperkalemia at this time no uremic symptoms CT abdomen and pelvis without any obstruction Jefferson catheter placed- no significant retention was encountered SPEP with high lambda light chains, abnormal ratio - immunofixation with M spike noted - he also had viral hepatology study that was negative, negative [place], other tick born serology pending. - patient currently has TDC in right femoral. Will likely need to be changed to tunneled catheter in the near future if ongoing dialysis needs and possibly fistula if intermediate designer needs persist. 2. Metastatic cancer: suspected metastatic prostate cancer based on recent history - Bone scan ordered, no bone/lytic lesions apparent, prior lesions seen on CT not redemonstrated. - [facility] performed prostate biopsy, patient states this was 2 months ago and he has discussed results with physicians. - PSA is 32 here, previously 40 3. Hypercalcemia: received calcitonin - s/p denosumab - improving, 10.8 this AM. 4. History of prostate cancer: records requested not started any treatment yet he reports he was recommended radiation Disposition - cont. dialysis per nephrology recs. No lytic lesions on bone scan. - serologies suggestive of Multiple Myeloma - Nephrology is suggesting transfer to facility that has hematology/oncology and nephrology services as he may need prison dialysis and treatment for MM as well as ongoing treatment for prostate cancer. - discussed with Dr. Mo at [facility] [place] and they will be accepting. - Planning for transfer to higher level of care once arrangements are made. Physical Exam Const: COMMON NORMALS: no acute distress, average body habitus and patient oriented x3 HENMT: COMMON NORMALS: normocephalic and atraumatic HEAD & SCALP: normocephalic and atraumatic Eye: COMMON NORMALS: Equal, round and reactive pupils present and EOMs intact bilaterally PUPIL: Yes Equal, round and reactive pupils present Resp: COMMON NORMALS: normal respiratory effort, No retractions and clear to auscultation bilaterally AUSCULTATION: clear to auscultation bilaterally Cardio: COMMON NORMALS: regular rate, regular rhythm, No gallops present (Cardio), No murmurs present (Cardio) and No rub (Cardio) RATE: regular rate RHYTHM: regular rhythm GI: COMMON NORMALS: Soft to palpation, non-tender, no masses and no bruits PALPATION: Yes Soft to palpation Extremity: OTHER: TDC below right groin on thigh, no erythema or edema, some tenderness. Neuro: COMMON NORMALS: patient oriented x3 Urinary Catheter Management: Jefferson: Cath Placed During This Visit: no Reason for Continuing Indwelling Catheter: Accurate Measurement of Urinary Output in Critically Ill Patients Discharge Data Studies Completed and Pending Completed Studies During Hospitalization Category Date Time Status CT abdomen pelvis wo con [id number] Stat Cat Scan 01/29/25 13:[address] chest wo con [id number] Routine Cat Scan 01/31/25 15:[address] neck wo con [id number] Routine Cat Scan 01/31/25 15:54 Completed NM bone scan whole body* [id number] Routine Nuc Med 02/01/25 14:50 Completed CV. echo complete* [id number] Routine Ultrasound 01/31/25 10:50 Completed Pending at discharge Category Date Time Status Blood Culture AM LABS Lab 02/01/25 04:49 Results Blood Culture Stat Lab 01/29/25 12:49 Results FREE LIGHT CHAIN SERUM [KAPPA/LAMBDA Light Free Serum] Lab 02/03/25 10:11 Received Routine Fecal Occult Blood [Immunochemical Fecal OCB] Stat Lab 01/30/25 10:45 Uncollected Francisella tularensis IgM/IgG Routine Lab 01/30/25 11:38 Received PTH Related Peptide (Protein) Routine Lab 01/31/25 10:30 Received Tick Panel Routine Lab 01/30/25 11:38 Results Radiology Impressions Abdomen/Pelvis CT 01/29/25 13:30 IMPRESSION: 1. Bilateral perinephric stranding with no obstruction. 2. Mesenteric edema with no ascites. 3. No GI tract obstruction or colitis. 4. New lytic lesion with loss of height in the RIGHT lateral L5 vertebral body since 01/15/2025. There is no adjacent mass. Possibility of a new compression fracture or metastatic lesion should be considered. There is an additional lytic area in the RIGHT lateral T10 vertebral body. Recommend follow-up MRI thoracic and lumbar spines with and without IV contrast. Bone scan may also be of benefit to evaluate the entire skeleton. 5. Mild compression of known L1 compression fracture and stable L2 compression fracture. 6. Scattered pancreatic calcifications from prior pancreatitis. 7. Spleen is top normal size. Chest CT 01/31/25 15:54 IMPRESSION: 1. Again seen is a lytic lesion in the T10 vertebral body eccentric to the RIGHT. Recommend follow-up bone scan. Additional lytic lesion in T2 vertebral body 2. Small bilateral pleural effusions. Compressive atelectasis in the lung bases. 3. Lungs are otherwise well aerated. Neck CT 01/31/25 15:54 IMPRESSION: Limited evaluation due to lack of IV contrast 1. Persistent indeterminant low-attenuation collections in the LEFT paraphar yngeal tonsil and base of tongue filling the RIGHT vallecula with increase of tissue thickening. This is difficult to further detail on this study but appears persistent compared to the prior contrast-enhanced neck CT concerning for neoplasm. Recommend follow-up endoscopy. 2. No cervical lymphadenopathy. 3. No other acute findings. Bone Scan Nuclear Medicine 02/01/25 14:50 IMPRESSION: 1. No evidence for metastatic disease to the bony skeleton. 2. Degenerative arthropathy at the SC joints and the knee joints. 3. Mild bilateral sacroiliitis. 4. Mild increased uptake at L1 from a prior fracture. Laboratory Results WBC 3.10 10^3/uL (3.29-11.43) L 02/03/25 04:32 RBC 2.39 10^6/uL (3.85-5.65) L 02/03/25 04:32 Hgb 7.70 g/dL (11.27-16.99) L 02/03/25 04:32 Hct 24.4 % (37-53) L 02/03/25 04:32 MCV 102.1 fl (82-101) H 02/03/25 04:32 MCH 32.2 pg (27-33) 02/03/25 04:32 MCHC 31.6 g/dL (30-55) 02/03/25 04:32 RDW 14.9 % (12.1-15.1) 02/03/25 04:32 Plt Count 140 10^3/cmm (157-399) L 02/03/25 04:32 MPV 10.5 fL (7.4-10.4) H 02/03/25 04:32 Neut % (Auto) 55.0 % 02/03/25 04:32 Lymph % (Auto) 23.2 % 02/03/25 04:32 [place] % (Auto) 11.6 % 02/03/25 04:32 Eos % (Auto) 3.5 % 02/03/25 04:32 Baso % (Auto) 0.6 % 02/03/25 04:32 Reticulocyte % (Auto) 1.1 % (0.5-2.0) 01/30/25 11:38 Reticulocyte % (Auto) Cancelled 01/30/25 11:38 Neut # (Auto) 1.70 10^3/uL (1.8-7.7) L 02/03/25 04:32 Lymph # (Auto) 0.7 10^3/uL (0.8-4.8) L 02/03/25 04:32 [place] # (Auto) 0.4 10^3/uL (0.2-0.9) 02/03/25 04:32 Eos # (Auto) 0.1 10^3/uL (0.0-0.8) 02/03/25 04:32 Baso # (Auto) 0.0 10^3/uL (0.0-0.1) 02/03/25 04:32 Nucleated RBC % (auto) 3.2 % 02/03/25 04:32 Nucleated RBCs # 0.1 /100WBC 02/03/25 04:32 Peripher Smr Path Cons Sent for review 01/29/25 12:49 Retic Production Index 0.61 01/30/25 11:38 Sodium 135 mmol/L (136-145) L 02/03/25 04:32 Potassium 3.7 mmol/L (3.5-5.1) 02/03/25 04:32 Chloride 95 mmol/L (98-107) L 02/03/25 04:32 Carbon Dioxide 22 mmol/L (22-29) 02/03/25 04:32 Anion Gap 21.7 (5-19) H 02/03/25 04:32 BUN 28 mg/dL (8-23) H 02/03/25 04:32 Creatinine 7.5 mg/dL (0.7-1.2) H* 02/03/25 04:32 GFR Calculation 7.3 mL/min (90-130) L 02/03/25 04:32 Glucose 97 mg/dL (65-115) 02/03/25 04:32 Calculated Osmolality 285 mOsm/kg (285-295) 02/03/25 04:32 Calcium 10.8 mg/dL (8.5-10.5) H 02/03/25 04:32 Phosphorus 4.0 mg/dL (2.5-4.5) 02/01/25 04:45 Magnesium 2.0 mg/dL (1.7-2.3) 02/01/25 04:45 Iron 79 ug/dL (59-158) 01/30/25 11:38 Iron Cancelled 01/30/25 11:38 TIBC 115 mcg/dl 01/30/25 11:38 % Saturation 68.6 % (20-50) H 01/30/25 11:38 Unsat Iron Binding 36 ug/dL (112-347) L 01/30/25 11:38 Transferrin 106 mg/dL (200-360) L 01/30/25 11:38 Ferritin 500 ng/mL (30-400) H 01/30/25 11:38 Total Bilirubin 0.4 mg/dL (0.15-1.2) 02/01/25 04:55 AST 11 U/L (0-40) 02/01/25 04:55 ALT < 5 U/L (0-41) 02/01/25 04:55 Alkaline Phosphatase 44 U/L (40-130) 02/01/25 04:55 Creatine Kinase 60 U/L (39-308) 01/29/25 12:49 Total Protein 10.0 g/dL (6.6-8.7) H 02/01/25 04:55 Albumin 2.8 g/dL (3.5-5.2) L 02/01/25 04:55 Globulin 7.2 g/dL (1.3-4.6) H 02/01/25 04:55 Iasoh-4-Bemwlcqvp 0.2 g/dL (0.2-0.3) 01/29/25 15:31 Qzwqr-6-Fgfynbnem 0.5 g/dL (0.5-0.9) 01/29/25 15:31 Gdqm-3-Rswtgagp 0.4 g/dL (0.4-0.6) 01/29/25 15:31 Kmrb-2-Harnhpho 0.4 g/dL (0.2-0.5) 01/29/25 15:31 Gamma Globulins 7.3 g/dL (0.8-1.7) H 01/29/25 15:31 Abnorm Protein Band 1 5.8 g/dL (NONE DETECTED) H 01/29/25 15:31 Prostate Specific Ag 32.620 ng/mL (0-4) H 01/29/25 12:49 Vitamin B12 180 pg/mL (232-1245) L 01/30/25 11:38 Folate 5.2 ng/mL (4.5-32.2) 01/30/25 11:38 PTH Intact 65.8 pg/mL (15-65) H 01/31/25 10:30 Calcium (PTH Intact) 11.6 mg/dL (8.5-10.5) H 01/31/25 10:30 Urine Color Yellow (Yellow) 01/29/25 14:01 Urine Appearance Clear (CLEAR) 01/29/25 14:01 Urine pH 5.5 (5-7) 01/29/25 14:01 Ur Specific Foley 1.010 (1.005-1.030) 01/29/25 14:01 Urine Protein 2+ (Negative) A 01/29/25 14:01 Urine Glucose (UA) Negative (Normal) 01/29/25 14:01 Urine Ketones Negative (Negative) 01/29/25 14:01 Urine Blood 1+ (Negative) A 01/29/25 14:01 Urine Nitrate Negative (Negative) 01/29/25 14:01 Urine Bilirubin Negative (Negative) 01/29/25 14:01 Urine Urobilinogen 0.2 mg/dL (Negative) 01/29/25 14:01 Ur Leukocyte Esterase Negative (Negative) 01/29/25 14:01 Urine RBC 0-2 /hpf (0-2) 01/29/25 14:01 Urine WBC 0-5 /hpf (0-5) 01/29/25 14:01 Ur Squamous Epith Cells 0-5 /hpf (0-5) 01/29/25 14:01 Amorphous Sediment Not Reportable 01/29/25 14:01 Urine Bacteria None seen /hpf (NONE) 01/29/25 14:01 Hyaline Casts 3.30 /lpf 01/29/25 14:01 Urine Sperm 1+ /hpf 01/29/25 14:01 Ur Random Creatinine 87 mg/dL (20-320) 01/29/25 14:53 Ur Random Albumin 0 % 01/29/25 14:53 U Random Total Protein 7 mg/dL (5-25) 01/29/25 14:53 Protein/Creatinin Ratio 80 mg/g creat (25-148) 01/29/25 14:53 Protein/Creat Ratio 24h 0.080 (0.025-0.148) 01/29/25 14:53 U Random v-5-Fswlzwtg % 0 % 01/29/25 14:53 U Random w-1-Fjddqeoa % 0 % 01/29/25 14:53 U Random Beta Globulin 0 % 01/29/25 14:53 U Random Gamma Glob 0 % 01/29/25 14:53 U Abnormal Prot Band 1 Not Reportable 01/29/25 14:53 U Abnormal Prot Band 2 1.4 g/dL (NONE DETECTED) H 01/29/25 15:31 U Abnormal Prot Band 3 Not Reportable 01/29/25 15:31 Urine PEP Interpret See note 01/29/25 14:53 Pro Electrophoresis Int See note 01/29/25 15:31 Serum Immunofixation see note A 01/29/25 15:31 Free [place] Light Chains 24.0 mg/L (3.3-19.4) H 01/29/25 15:31 Free Lambda Light Chain 2477.2 mg/L (5.7-26.3) H 01/29/25 15:31 Free [place]/Lambda Ratio 0.01 (0.26-1.65) L 01/29/25 15:31 Lyme Ab (Western Blot) <0.90 index 01/30/25 11:38 Hepatitis A IgM Ab Non-reactive (Nonreactive) 01/29/25 22:12 Hep Bs Antigen Non-reactive (Nonreactive) 01/31/25 22:19 Hep Bs Antibody < 3.5 (11.5-1000) L 01/31/25 22:19 Hep B Core Total Ab Non-reactive (Nonreactive) 01/29/25 22:12 Hepatitis C Antibody Non-reactive (Nonreactive) 01/29/25 22:12 HIV 1&2 Ab & HIV 1 Ag Non-reactive (Non-Reactiv) 01/29/25 22:12 HIV 1&2 Antibody Non-reactive (Non-Reactiv) 01/29/25 22:12 Blood Type O Positive 01/31/25 23:30 Rho(D) Type Rh positive 01/31/25 23:30 Antibody Screen Negative 01/31/25 23:30 Crossmatch See Detail 01/31/25 23:30 Vitals Last Vital Signs Temp 99.4 F 02/03/25 11:24 Pulse 87 02/03/25 11:24 Resp 16 02/03/25 11:24 BP 132/72 02/03/25 11:24 Pulse Ox 90 02/03/25 11:24 O2 Del Method Room Air 02/03/25 11:24 O2 Flow Rate 2 02/03/25 07:30 Discharge Plan Discharge Patient Disposition: Xfer Other Condition: Stable Prescriptions: No Action losartan 50 mg tablet See Rx Instructions .ROUTE .COMPLEX Qty: 180 0RF Dose Instruction: TAKE 1 TABLET BY MOUTH TWICE DAILY Rx Instructions: TAKE 1 TABLET BY MOUTH TWICE DAILY tamsulosin [Flomax] 0.4 mg capsule 0.4 mg PO DAILY Qty: 90 0RF nifedipine 90 mg tablet extended release 24hr See Rx Instructions .ROUTE .COMPLEX Qty: 90 4RF Dose Instruction: TAKE 1 TABLET BY MOUTH EVERY DAY Rx Instructions: TAKE 1 TABLET BY MOUTH EVERY DAY acetaminophen [Tylenol Extra Strength] 500 mg Tablet 1,500 mg PO Q6H PRN (Reason: Pain) ibuprofen [Advil] 200 mg Tablet 600 mg PO Q6H PRN (Reason: Pain) oxycodone-acetaminophen [Percocet] 5-325 mg tablet 1 tab PO Q4H PRN (Reason: pain) Referrals: Yulissa Mariscal NP [Primary Care Provider, Family Practice] Discharge Diet: Advance as tolerated Discharge Activity: Resume usual activity Discharge Attestations Time Spent in Discharge Care*: greater than 30 min Quality Metrics Clinical Quality Measures [ No reported AMI, CVA or VTE this stay] Coding Level of Care Code Acute Code for Chg Fwd Diagnoses Acute kidney injury N17.9
--- NOTE | 2025-02-03 14:10 | PM.TDS ---
Transfer Summary Providers Date of Admission: 01/29/25 13:56 Date of Discharge/Transfer: 02/03/25 Attending Provider at Admission: Evie Marie MD Attending Provider at Transfer: Boris Patrcik MD Primary Care Provider: Yulissa Mariscal NP Transfer Plans: Anticipated date of transfer: 02/03/25. Diagnoses at Discharge Discharge Diagnosis 1. Acute kidney injury: Reason for Visit Reason for Visit Abnormal Labs Hospital Course Hospital Course 1. Acute kidney injury: Multifactorial: recent heavy NSAID use, probable new diagnosis of Multiple Myeloma. admit to med surg Creat up to 11 on admission, now decreasing on dialysis, although appears to have plateaued around 6-7. Nephrology following to manage dialysis No hyperkalemia at this time no uremic symptoms CT abdomen and pelvis without any obstruction Jefferson catheter placed- no significant retention was encountered SPEP with high lambda light chains, abnormal ratio - immunofixation with M spike noted - he also had viral hepatology study that was negative, negative [place], other tick born serology pending. - patient currently has TDC in right femoral. 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 2. Metastatic cancer: suspected metastatic prostate cancer based on recent history - Bone scan ordered, no bone/lytic lesions apparent, prior lesions seen on CT not redemonstrated. - [facility] performed prostate biopsy, patient states this was 2 months ago and he has discussed results with physicians. - PSA is 32 here, previously 40 3. Hypercalcemia: received calcitonin - s/p denosumab - improving, 10.8 this AM. 4. History of prostate cancer: records requested not started any treatment yet he reports he was recommended radiation Disposition - cont. dialysis per nephrology recs. No lytic lesions on bone scan. 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 - discussed with Dr. Mo at [facility] and they will be accepting. - Planning for transfer to higher level of care once arrangements are made. Physical Exam Const: COMMON NORMALS: no acute distress, average body habitus and patient oriented x3 HENMT: COMMON NORMALS: normocephalic and atraumatic HEAD & SCALP: normocephalic and atraumatic Eye: COMMON NORMALS: Equal, round and reactive pupils present and EOMs intact bilaterally PUPIL: Yes Equal, round and reactive pupils present Resp: COMMON NORMALS: normal respiratory effort, No retractions and clear to auscultation bilaterally AUSCULTATION: clear to auscultation bilaterally Cardio: COMMON NORMALS: regular rate, regular rhythm, No gallops present (Cardio), No murmurs present (Cardio) and No rub (Cardio) RATE: regular rate RHYTHM: regular rhythm GI: COMMON NORMALS: Soft to palpation, non-tender, no masses and no bruits PALPATION: Yes Soft to palpation Extremity: OTHER: TDC below right groin on thigh, no erythema or edema, some tenderness. Neuro: COMMON NORMALS: patient oriented x3 Urinary Catheter Management: Jefferson: Cath Placed During This Visit: no Reason for Continuing Indwelling Catheter: Accurate Measurement of Urinary Output in Critically Ill Patients TS Data Studies Completed and Pending Pending at discharge Category Date Time Status Blood Culture AM LABS Lab 02/01/25 04:49 Results Blood Culture Stat Lab 01/29/25 12:49 Results FREE LIGHT CHAIN SERUM [KAPPA/LAMBDA Light Free Serum] Lab 02/03/25 10:11 Received Routine Fecal Occult Blood [Immunochemical Fecal OCB] Stat Lab 01/30/25 10:45 Uncollected Francisella tularensis IgM/IgG Routine Lab 01/30/25 11:38 Received PTH Related Peptide (Protein) Routine Lab 01/31/25 10:30 Received Tick Panel Routine Lab 01/30/25 11:38 Results Completed Studies During Hospitalization Category Date Time Status CT abdomen pelvis wo con [id number] Stat Cat Scan 01/29/25 13:[address] chest wo con [id number] Routine Cat Scan 01/31/25 15:[address] neck wo con [id number] Routine Cat Scan 01/31/25 15:54 Completed NM bone scan whole body* [id number] Routine Nuc Med 02/01/25 14:50 Completed CV. echo complete* [id number] Routine Ultrasound 01/31/25 10:50 Completed Laboratory Last Values WBC 3.10 10^3/uL (3.29-11.43) L 02/03/25 04:32 RBC 2.39 10^6/uL (3.85-5.65) L 02/03/25 04:32 Hgb 7.70 g/dL (11.27-16.99) L 02/03/25 04:32 Hct 24.4 % (37-53) L 02/03/25 04:32 MCV 102.1 fl (82-101) H 02/03/25 04:32 MCH 32.2 pg (27-33) 02/03/25 04:32 MCHC 31.6 g/dL (30-55) 02/03/25 04:32 RDW 14.9 % (12.1-15.1) 02/03/25 04:32 Plt Count 140 10^3/cmm (157-399) L 02/03/25 04:32 MPV 10.5 fL (7.4-10.4) H 02/03/25 04:32 Neut % (Auto) 55.0 % 02/03/25 04:32 Lymph % (Auto) 23.2 % 02/03/25 04:32 Archer % (Auto) 11.6 % 02/03/25 04:32 Eos % (Auto) 3.5 % 02/03/25 04:32 Baso % (Auto) 0.6 % 02/03/25 04:32 Reticulocyte % (Auto) 1.1 % (0.5-2.0) 01/30/25 11:38 Reticulocyte % (Auto) Cancelled 01/30/25 11:38 Neut # (Auto) 1.70 10^3/uL (1.8-7.7) L 02/03/25 04:32 Lymph # (Auto) 0.7 10^3/uL (0.8-4.8) L 02/03/25 04:32 Archer # (Auto) 0.4 10^3/uL (0.2-0.9) 02/03/25 04:32 Eos # (Auto) 0.1 10^3/uL (0.0-0.8) 02/03/25 04:32 Baso # (Auto) 0.0 10^3/uL (0.0-0.1) 02/03/25 04:32 Nucleated RBC % (auto) 3.2 % 02/03/25 04:32 Nucleated RBCs # 0.1 /100WBC 02/03/25 04:32 Peripher Smr Path Cons Sent for review 01/29/25 12:49 Retic Production Index 0.61 01/30/25 11:38 Sodium 135 mmol/L (136-145) L 02/03/25 04:32 Potassium 3.7 mmol/L (3.5-5.1) 02/03/25 04:32 Chloride 95 mmol/L (98-107) L 02/03/25 04:32 Carbon Dioxide 22 mmol/L (22-29) 02/03/25 04:32 Anion Gap 21.7 (5-19) H 02/03/25 04:32 BUN 28 mg/dL (8-23) H 02/03/25 04:32 Creatinine 7.5 mg/dL (0.7-1.2) H* 02/03/25 04:32 GFR Calculation 7.3 mL/min (90-130) L 02/03/25 04:32 Glucose 97 mg/dL (65-115) 02/03/25 04:32 Calculated Osmolality 285 mOsm/kg (285-295) 02/03/25 04:32 Calcium 10.8 mg/dL (8.5-10.5) H 02/03/25 04:32 Phosphorus 4.0 mg/dL (2.5-4.5) 02/01/25 04:45 Magnesium 2.0 mg/dL (1.7-2.3) 02/01/25 04:45 Iron 79 ug/dL (59-158) 01/30/25 11:38 Iron Cancelled 01/30/25 11:38 TIBC 115 mcg/dl 01/30/25 11:38 % Saturation 68.6 % (20-50) H 01/30/25 11:38 Unsat Iron Binding 36 ug/dL (112-347) L 01/30/25 11:38 Transferrin 106 mg/dL (200-360) L 01/30/25 11:38 Ferritin 500 ng/mL (30-400) H 01/30/25 11:38 Total Bilirubin 0.4 mg/dL (0.15-1.2) 02/01/25 04:55 AST 11 U/L (0-40) 02/01/25 04:55 ALT < 5 U/L (0-41) 02/01/25 04:55 Alkaline Phosphatase 44 U/L (40-130) 02/01/25 04:55 Creatine Kinase 60 U/L (39-308) 01/29/25 12:49 Total Protein 10.0 g/dL (6.6-8.7) H 02/01/25 04:55 Albumin 2.8 g/dL (3.5-5.2) L 02/01/25 04:55 Globulin 7.2 g/dL (1.3-4.6) H 02/01/25 04:55 Ukcmy-9-Wrxxisbbp 0.2 g/dL (0.2-0.3) 01/29/25 15:31 Qqqih-9-Irbyfijcw 0.5 g/dL (0.5-0.9) 01/29/25 15:31 Yign-2-Ztqntuyl 0.4 g/dL (0.4-0.6) 01/29/25 15:31 Pmjx-5-Ejkdsyxy 0.4 g/dL (0.2-0.5) 01/29/25 15:31 Gamma Globulins 7.3 g/dL (0.8-1.7) H 01/29/25 15:31 Abnorm Protein Band 1 5.8 g/dL (NONE DETECTED) H 01/29/25 15:31 Prostate Specific Ag 32.620 ng/mL (0-4) H 01/29/25 12:49 Vitamin B12 180 pg/mL (232-1245) L 01/30/25 11:38 Folate 5.2 ng/mL (4.5-32.2) 01/30/25 11:38 PTH Intact 65.8 pg/mL (15-65) H 01/31/25 10:30 Calcium (PTH Intact) 11.6 mg/dL (8.5-10.5) H 01/31/25 10:30 Urine Color Yellow (Yellow) 01/29/25 14:01 Urine Appearance Clear (CLEAR) 01/29/25 14:01 Urine pH 5.5 (5-7) 01/29/25 14:01 Ur Specific [place] Mark 1.010 (1.005-1.030) 01/29/25 14:01 Urine Protein 2+ (Negative) A 01/29/25 14:01 Urine Glucose (UA) Negative (Normal) 01/29/25 14:01 Urine Ketones Negative (Negative) 01/29/25 14:01 Urine Blood 1+ (Negative) A 01/29/25 14:01 Urine Nitrate Negative (Negative) 01/29/25 14:01 Urine Bilirubin Negative (Negative) 01/29/25 14:01 Urine Urobilinogen 0.2 mg/dL (Negative) 01/29/25 14:01 Ur Leukocyte Esterase Negative (Negative) 01/29/25 14:01 Urine RBC 0-2 /hpf (0-2) 01/29/25 14:01 Urine WBC 0-5 /hpf (0-5) 01/29/25 14:01 Ur Squamous Epith Cells 0-5 /hpf (0-5) 01/29/25 14:01 Amorphous Sediment Not Reportable 01/29/25 14:01 Urine Bacteria None seen /hpf (NONE) 01/29/25 14:01 Hyaline Casts 3.30 /lpf 01/29/25 14:01 Urine Sperm 1+ /hpf 01/29/25 14:01 Ur Random Creatinine 87 mg/dL (20-320) 01/29/25 14:53 Ur Random Albumin 0 % 01/29/25 14:53 U Random Total Protein 7 mg/dL (5-25) 01/29/25 14:53 Protein/Creatinin Ratio 80 mg/g creat (25-148) 01/29/25 14:53 Protein/Creat Ratio 24h 0.080 (0.025-0.148) 01/29/25 14:53 U Random h-7-Riohqouu % 0 % 01/29/25 14:53 U Random l-8-Vtbxnvrr % 0 % 01/29/25 14:53 U Random Beta Globulin 0 % 01/29/25 14:53 U Random Gamma Glob 0 % 01/29/25 14:53 U Abnormal Prot Band 1 Not Reportable 01/29/25 14:53 U Abnormal Prot Band 2 1.4 g/dL (NONE DETECTED) H 01/29/25 15:31 U Abnormal Prot Band 3 Not Reportable 01/29/25 15:31 Urine PEP Interpret See note 01/29/25 14:53 Pro Electrophoresis Int See note 01/29/25 15:31 Serum Immunofixation see note A 01/29/25 15:31 Free [place] Light Chains 24.0 mg/L (3.3-19.4) H 01/29/25 15:31 Free Lambda Light Chain 2477.2 mg/L (5.7-26.3) H 01/29/25 15:31 Free [place]/Lambda Ratio 0.01 (0.26-1.65) L 01/29/25 15:31 Lyme Ab (Western Blot) <0.90 index 01/30/25 11:38 Hepatitis A IgM Ab Non-reactive (Nonreactive) 01/29/25 22:12 Hep Bs Antigen Non-reactive (Nonreactive) 01/31/25 22:19 Hep Bs Antibody < 3.5 (11.5-1000) L 01/31/25 22:19 Hep B Core Total Ab Non-reactive (Nonreactive) 01/29/25 22:12 Hepatitis C Antibody Non-reactive (Nonreactive) 01/29/25 22:12 HIV 1&2 Ab & HIV 1 Ag Non-reactive (Non-Reactiv) 01/29/25 22:12 HIV 1&2 Antibody Non-reactive (Non-Reactiv) 01/29/25 22:12 Blood Type O Positive 01/31/25 23:30 Rho(D) Type Rh positive 01/31/25 23:30 Antibody Screen Negative 01/31/25 23:30 Crossmatch See Detail 01/31/25 23:30 Radiology Impressions Abdomen/Pelvis CT 01/29/25 13:30 IMPRESSION: 1. Bilateral perinephric stranding with no obstruction. 2. Mesenteric edema with no ascites. 3. No GI tract obstruction or colitis. 4. New lytic lesion with loss of height in the RIGHT lateral L5 vertebral body since 01/15/2025. There is no adjacent mass. Possibility of a new compression fracture or metastatic lesion should be considered. There is an additional lytic area in the RIGHT lateral T10 vertebral body. Recommend follow-up MRI thoracic and lumbar spines with and without IV contrast. Bone scan may also be of benefit to evaluate the entire skeleton. 5. Mild compression of known L1 compression fracture and stable L2 compression fracture. 6. Scattered pancreatic calcifications from prior pancreatitis. 7. Spleen is top normal size. Chest CT 01/31/25 15:54 IMPRESSION: 1. Again seen is a lytic lesion in the T10 vertebral body eccentric to the RIGHT. Recommend follow-up bone scan. Additional lytic lesion in T2 vertebral body 2. Small bilateral pleural effusions. Compressive atelectasis in the lung bases. 3. Lungs are otherwise well aerated. Neck CT 01/31/25 15:54 IMPRESSION: Limited evaluation due to lack of IV contrast 1. Persistent indeterminant low-attenuation collections in the LEFT parapharyngeal tonsil and base of tongue filling the RIGHT vallecula with increase of tissue thickening. This is difficult to further detail on this study but appears persistent compared to the prior contrast-enhanced neck CT concerning for neoplasm. Recommend follow-up endoscopy. 2. No cervical lymphadenopathy. 3. No other acute findings. Bone Scan Nuclear Medicine 02/01/25 14:50 IMPRESSION: 1. No evidence for metastatic disease to the bony skeleton. 2. Degenerative arthropathy at the SC joints and the knee joints. 3. Mild bilateral sacroiliitis. 4. Mild increased uptake at L1 from a prior fracture. Recent Clincial Data Last Vital Signs Temp 99.4 F 02/03/25 11:24 Pulse 87 02/03/25 11:24 Resp 16 02/03/25 11:24 BP 132/72 02/03/25 11:24 Pulse Ox 90 02/03/25 11:24 O2 Del Method Room Air 02/03/25 11:24 O2 Flow Rate 2 02/03/25 07:30 Vital Signs Temp Pulse Resp BP Pulse Ox O2 Del Method O2 Flow Rate 02/03/25 11:24 99.4 F 87 16 132/72 90 Room Air 02/03/25 07:30 100.1 F H 90 15 124/75 90 Nasal Cannula 2 02/03/25 07:21 1.5 02/03/25 04:00 99.5 F 92 17 126/70 90 Room Air Intake & Output/Weight 02/01/25 02/02/25 02/03/25 02/04/25 06:59 06:59 06:59 06:59 Intake Total 4090.000 / 4090.000 1758.333 / 5676.939 5235 / 1350 1138.333 / 1138.333 Output Total 3325 / 3325 850 / 850 3900 / 3900 Balance 765.000 / 765.000 908.333 / 908.333 -2550 / -2550 1138.333 / 1138.333 Weight 79.107 kg 78.471 kg Vitals Last Vital Signs Temp 99.4 F 02/03/25 11:24 Pulse 87 02/03/25 11:24 Resp 16 02/03/25 11:24 BP 132/72 02/03/25 11:24 Pulse Ox 90 02/03/25 11:24 O2 Del Method Room Air 02/03/25 11:24 O2 Flow Rate 2 02/03/25 07:30 TS Medications Medications Acetaminophen (Acetaminophen 325 Mg Tablet) 650 mg PO Q6H PRN PRN Reason: Mild/Mod Pain Or Temp >/= 101 Hydralazine HCl (Hydralazine 20 Mg/Ml Inj 1 Ml) 10 mg IVP Q4H PRN PRN Reason: SBP > 160 Hydromorphone HCl (Hydromorphone 0.5 Mg/0.5 Ml Inj) 1 mg IVP Q4H PRN PRN Reason: PAIN Piperacillin Sod/Tazobactam (Sod 3.375 gm/ Sodium Chloride) 50 mls @ 12.5 mls/hr IV Q12H [facility] Last Infusion: 02/03/25 08:35 Dose: Infused Sodium Chloride (Sodium Chloride 0.9%) 1,000 mls @ 0 mls/hr IV .Q0M PRN PRN Reason: hypotension or symptomatic Albumin Human (Albumin) 12.5 gm in 50 mls @ 60 mls/hr IV PRN PRN PRN Reason: Hypotension and/or symptomatic Sodium Chloride (Sodium Chloride 0.9%) 1,000 mls @ 0 mls/hr IV .Q0M PRN PRN Reason: hypotension or symptomatic Albumin Human (Albumin) 12.5 gm in 50 mls @ 60 mls/hr IV PRN PRN PRN Reason: Hypotension and/or symptomatic Potassium Chloride/Sodium Chloride (Sodium Chlor 0.9% + Kcl 20 Meq) 20 meq in 1,000 mls @ 100 mls/hr IV .Q10H [facility] Last Admin: 02/03/25 08:34 Dose: 100 mls/hr Lactulose (Lactulose Oral Liq 20 Gm/30 Ml Udc) 10 gm PO Q12H [facility] Last Admin: 02/03/25 04:12 Dose: 10 gm Lidocaine (Lidocaine 5% Patch) 1 patch TOPICAL [id number] [facility] Last Admin: 02/03/25 09:10 Dose: 1 patch Melatonin (Melatonin 3 Mg Tablet) 3 mg PO BEDTIME [facility] Last Admin: 02/02/25 20:07 Dose: 3 mg Naloxone HCl (Naloxone 0.4 Mg/Ml Sdv) 0.1 mg IVP Q2M PRN PRN Reason: OPIATERV Nifedipine (Nifedipine Er (24 Hr) 30 Mg Tablet) 90 mg PO DAILY [facility] Last Admin: 02/03/25 09:10 Dose: 90 mg Ondansetron HCl (Ondansetron 2 Mg/Ml Sdv 2 Ml) 4 mg IVP Q8H PRN PRN Reason: vomiting, or N/V if npo Last Admin: 02/01/25 08:23 Dose: 4 mg Oxycodone HCl (Oxycodone 5 Mg Ir Tab/Cap) 5 mg PO Q6H PRN PRN Reason: MODERATE PAIN Last Admin: 02/02/25 20:07 Dose: 5 mg Pantoprazole Sodium (Pantoprazole Dr 40 Mg Tablet) 40 mg PO DAILY [facility] Last Admin: 02/03/25 09:10 Dose: 40 mg Discontinued Medications Calcitonin [place] (Calcitonin,[place] 200 Unit/Ml Sdv 2ml) 100 unit SUBCUT BID JANICE Stop: 01/31/25 14:59 Last Admin: 01/31/25 09:14 Dose: 100 unit Citric Acid/Sodium Citrate (Citric Acid-Sodium Citrate 30 Ml Udc) 30 ml PO BID ONE Stop: 01/30/25 05:06 Last Admin: 01/30/25 05:19 Dose: 30 ml Denosumab (Denosumab 120 Mg Sdv) 120 mg SUBCUT ONCE ONE Stop: 01/31/25 09:01 Last Admin: 01/31/25 10:44 Dose: 120 mg Furosemide (Furosemide 10 Mg/Ml Sdv 10ml) 80 mg IVP ONCE ONE Stop: 01/30/25 11:45 Last Admin: 01/30/25 12:17 Dose: 80 mg Heparin Sodium (Porcine) (Heparin 5,000 Unit/Ml Inj 1 Ml) 5,000 unit SUBCUT Q12H [facility] Last Admin: 01/31/25 16:36 Dose: Not Given Heparin Sodium (Porcine) (Heparin, Porcine 1,000 Unit/Ml Inj 10 Ml) 10,000 unit INTRACATH ONCE ONE Stop: 01/31/25 16:22 Last Admin: 02/01/25 04:50 Dose: Not Given Heparin Sodium (Porcine) (Heparin Lock Flush 500 Unit/5 Ml Syringe) 500 unit IVP ONCE ONE Stop: 01/31/25 17:07 Last Admin: 01/31/25 17:32 Dose: 500 unit Heparin Sodium (Porcine) (Heparin, Porcine 1,000 Unit/Ml Inj 10 Ml) 10,000 unit HE ONCE ONE Stop: 01/31/25 18:53 Last Admin: 01/31/25 18:55 Dose: 10,000 unit Heparin Sodium (Porcine) (Heparin, Porcine 1,000 Unit/Ml Inj 10 Ml) 10,000 unit INTRACATH ONCE ONE Stop: 02/02/25 05:54 Last Admin: 02/02/25 08:04 Dose: Not Given Heparin Sodium (Porcine) (Heparin, Porcine 1,000 Unit/Ml Inj 10 Ml) 1,000 unit IV ONCE ONE Stop: 02/02/25 05:54 Last Admin: 02/02/25 08:04 Dose: Not Given Heparin Sodium (Porcine) (Heparin, Porcine 1,000 Unit/Ml Inj 10 Ml) 10,000 unit HE ONCE ONE Stop: 02/02/25 10:16 Last Admin: 02/02/25 10:52 Dose: 10,000 unit Heparin Sodium (Porcine) (Heparin, Porcine 1,000 Unit/Ml Inj 10 Ml) 10,000 unit INTRACATH ONCE ONE Stop: 02/02/25 10:16 Last Admin: 02/02/25 10:52 Dose: 10,000 unit Sodium Chloride (Sodium Chloride 0.9%) 1,000 mls @ 999 mls/hr IV .Q1H1M ONE Stop: 01/29/25 13:16 Last Infusion: 01/29/25 14:42 Dose: Infused Sodium Chloride (Sodium Chloride 0.9%) 1,000 mls @ 150 mls/hr IV .Q6H40M [facility] Last Infusion: 01/30/25 11:53 Dose: Infused Sodium Bicarbonate 150 meq/ (Dextrose) 1,150 mls @ 100 mls/hr IV .[id number] [facility] Last Infusion: 02/01/25 19:25 Dose: Infused Albumin Human (Albumin) 25 g in 100 mls @ 60 mls/hr IV ONCE ONE Stop: 01/31/25 07:41 Last Infusion: 01/31/25 09:21 Dose: Infused Dextrose (D5w) Confirm Administered Dose 1,000 mls @ as directed .ROUTE .STK-MED ONE Stop: 01/31/25 21:12 Morphine Sulfate (Morphine 4 Mg/Ml Sdv 1 Ml) 2 mg IVP Q4H PRN PRN Reason: SEVERE PAIN Last Admin: 01/30/25 00:49 Dose: 2 mg Sodium Bicarbonate (Sodium Bicarbonate 8.4% 1 Meq/Ml 50ml Syr) Confirm Administered Dose 150 meq .ROUTE .STK-MED ONE Stop: 01/31/25 21:11 Last Admin: 01/31/25 21:48 Dose: Not Given Sodium Chloride (Sodium Chloride 0.9% 100 Ml Bag) 50 ml IV PRN PRN PRN Reason: Blood transfusion prime and flush Stop: 02/01/25 23:09 Sodium Chloride (Sodium Chloride 0.9% 100 Ml Bag) 50 ml IV PRN PRN PRN Reason: Blood transfusion prime and flush Stop: 02/01/25 23:32 Allergies No Known Allergies Allergy (Verified 01/29/25 10:25) Home Medications losartan 50 mg tablet See Rx Instructions .Route .COMPLEX #180 tabs 12/03/24 [Rx Confirmed 01/29/25] tamsulosin 0.4 mg capsule (Flomax) 0.4 mg PO DAILY #90 caps 12/28/24 [Rx Confirmed 01/29/25] nifedipine 90 mg tablet,extended release 24 hr See Rx Instructions .Route .COMPLEX #90 tabs 01/15/25 [Rx Confirmed 01/29/25] acetaminophen 500 mg tablet (Tylenol Extra Strength) 1,500 mg PO Q6H PRN Pain 01/29/25 [History Confirmed 01/29/25] ibuprofen 200 mg tablet (Advil) 600 mg PO Q6H PRN Pain 01/29/25 [History Confirmed 01/29/25] oxycodone-acetaminophen 5 mg-325 mg tablet (Percocet) 1 tab PO Q4H PRN pain 01/29/25 [History Confirmed 01/29/25] Discharge Plan Discharge Patient Disposition: Xfer Other Condition: Stable Prescriptions: No Action losartan 50 mg tablet See Rx Instructions .ROUTE .COMPLEX Qty: 180 0RF Dose Instruction: TAKE 1 TABLET BY MOUTH TWICE DAILY Rx Instructions: TAKE 1 TABLET BY MOUTH TWICE DAILY tamsulosin [Flomax] 0.4 mg capsule 0.4 mg PO DAILY Qty: 90 0RF nifedipine 90 mg tablet extended release 24hr See Rx Instructions .ROUTE .COMPLEX Qty: 90 4RF Dose Instruction: TAKE 1 TABLET BY MOUTH EVERY DAY Rx Instructions: TAKE 1 TABLET BY MOUTH EVERY DAY acetaminophen [Tylenol Extra Strength] 500 mg Tablet 1,500 mg PO Q6H PRN (Reason: Pain) ibuprofen [Advil] 200 mg Tablet 600 mg PO Q6H PRN (Reason: Pain) oxycodone-acetaminophen [Percocet] 5-325 mg tablet 1 tab PO Q4H PRN (Reason: pain) Referrals: Yulissa Mariscal, CATERING OPERATIONS MANAGER [Primary Care Provider, [facility]] Discharge Diet: Advance as tolerated Discharge Activity: Resume usual activity Transfer Attestations Time Spent in Transfer Care: greater than 30 min Quality Metrics Clinical Quality Measures [ No reported AMI, CVA or VTE this stay] Coding Level of Care Code Acute Code for g Fwd Diagnoses Acute kidney injury N17.9
--- NOTE | 2025-02-03 14:16 | PC.NURSE ---
Bed received at [place] in [facility]. Pt advised. This nurse contacts Syed (zulema) and advises her that pt will be transported to room 3527. Number for the floor also provided to Syed.
--- NOTE | 2025-02-03 14:46 | PC.NURSE ---
Report called to PETER Cortes at [facility]. Dany See also contacted at this time to arrange transport. State they will arrive to transport pt in about 40 minutes.
[2025-02-03 14:51] VITALS: BP 132/72; PULSE 87; RESP 16; TEMP 37.4; O2SAT 90
--- NOTE | 2025-02-03 15:40 | PC.SOCIAL ---
*IMM Update* Patient received copy of Important Message from [employer]. Dated, initialed in chart.
[2025-02-03 18:02] VITALS: RESP 18
[2025-02-03] MEDS: oxyCODONE 5 mg IR Tab/Cap PO (18:02)
--- NOTE | 2025-02-03 18:03 | PC.NURSE ---
Dany hoang here to transport pt to [place].
[2025-02-04 14:39] LABS: KAPPA LIGHT CHAIN, FREE, SERUM 23.4 mg/L (3.3-19.4); KAPPA/LAMBDA LIGHT CHAINS FREE 0.01 (0.26-1.65); LAMBDA LIGHT CHAIN, FREE, SERU 2640.4 mg/L (5.7-26.3)
[2025-02-04 18:49] LABS: RMSF IGG NOT DETECTED; RMSF IGM NOT DETECTED
== END 2025-02-03 18:04 | disposition short-term general hospital (02) | DRG 683 ==
LOC: ER 12:39 → ER IP 13:56 → MEDSURG 17:16 → ICU 01-31 15:48 → MEDSURG 02-02 16:07
PROVIDERS: Hospitalist; Admitting Provider Student in an Organized Health Care Education/Training Program; Emergency Provider Family Medicine; PCP Nurse Practitioner Family; Visit Provider Internal Medicine
DX: N17.9 Acute kidney failure, unspecified (principal); C90.00 Multiple myeloma not having achieved remission; E87.20 Acidosis, unspecified; R78.81 Bacteremia; N14.0 Analgesic nephropathy; T39.395A Adverse effect of other nonsteroidal anti-inflammatory drugs [NSAID], initial encounter; Y92.9 Unspecified place or not applicable; E83.52 Hypercalcemia; C61 Malignant neoplasm of prostate; F17.210 Nicotine dependence, cigarettes, uncomplicated; M89.9 Disorder of bone, unspecified; M48.062 Spinal stenosis, lumbar region with neurogenic claudication; I10 Essential (primary) hypertension; K59.00 Constipation, unspecified; B96.89 Other specified bacterial agents as the cause of diseases classified elsewhere
CPT/HCPCS: 36415; 36430; 70490; 71250; 74176; 78306; 80048; 80053; 81001; 82310; 82542; 82550; 82570; 82607; 82728; 82746; 83540; 83550; 83735; 83883; 83970; 84100; 84153; 84155; 84156; 84165; 84166; 84466; 85014; 85025; 85045; 86160; 86334; 86618; 86666; 86668; 86705; 86706; 86709; 86757; 86803; 86850; 86900; 86920; 87040; 87150; 87205; 87340; 87806; 90935; 93005; 93306; 96361; 96372; 96374; 99285; A9561; J0630; J0897; J1642; J1644; J1938; J2270; J2405; J2543; J3480; J7030; J7070; J9999; P9040; P9046; Q3014

== ENCOUNTER 2025-05-29 09:37 | Emergency (ER) | payer MEDICARE, SELFPAY ==
--- NOTE | 2025-05-29 09:41 | ED_ITS ---
HPI - General Adult 2 General: Chief complaint: General Medical Stated complaint: Abnormal Labs Time Seen by Provider: 05/29/25 09:39 Source: patient Mode of arrival: ambulatory Limitations: no limitations History of Present Illness: 69-year-old male has a history of end-st age renal disease he is on dialysis goes Saturday. Patient states dialysis clinic sent him here today because of concern his calcium was low. He states that he feels at his baseline has no complaints at this time. Related Data Home Medications ?Medication ?Instructions ?Recorded ?Confirmed acetaminophen 500 mg tablet 1,500 mg PO Q6H PRN Pain 0 01/29/25 01/29/25 (Tylenol Extra Strength) ibuprofen 200 mg tablet (Advil) 600 mg PO Q6H PRN Pain 01/29/25 01/29/25 oxycodone-acetaminophen 5 mg-325 1 tab PO Q4H PRN pain 01/29/25 01/29/25 mg tablet (Percocet) Previous Rx's ?Medication ?Instructions ?Recorded losartan 50 mg tablet See Rx Instructions .Route 0 12/03/24 .COMPLEX #180 tabs tamsulosin 0.4 mg capsule (Flomax) 0.4 mg PO DAILY #90 caps 12/28/24 nifedipine 90 mg tablet,extended See Rx Instructions . Route 01/15/25 release 24 hr .COMPLEX #90 tabs Allergies Allergy/AdvReac Type Severity Reaction Status Date / Time No Known Allergies Allergy Verified 01/29/25 10:25 PFSH ED 2 PFSH: Surgical History History of neck surgery Social History Smoking and tobacco/nicotine status: current every day tobacco/nicotine user cigarettes Packs smoked per day: 1 Alcohol intake: current Alcohol intake frequency: few times a month Alcohol type: hard liquor Physical Exam 2 Const: COMMON NORMALS: no acute distress, patient oriented x3 and healthy appearing HENMT: COMMON NORMALS: normocephalic and atraumatic HEAD & SCALP: n ormocephalic and atraumatic Neck/C-Spine: COMMON NORMALS: full ROM and supple Chest: COMMONS NORMALS: normal inspection of the chest Resp: COMMON NORMALS: normal respiratory effort, No retractions, No use of accessory muscles and clear to auscultation bilaterally AUSCULTATION: clear to auscultation bilaterally Cardio: COMMON NORMALS: regular rate, regular rhythm and No murmurs present (Cardio) RATE: regular rate RHYTHM: regular rhythm GI: COMMON NORMALS: Normal to inspection, nondistended, normoactive bowel sounds present, Soft to palpation, non-tender and no masses PALPATION: Yes Soft to palpation Extremity: COMMON NORMALS: normal to inspection and full ROM Neuro: COMMON NORMALS: patient oriented x3, moves all extremities and no focal motor deficits Psych: COMMON NORMALS: mental status grossly normal, Normal thought process present and cooperative THOUGHT PROCESS: Normal thought process present Skin: COMMON NORMALS: no rashes or lesions noted and no wounds GENERAL SKIN EXAM: no rashes or lesions noted Course 2 Vital Signs: Vital signs: Vital Signs Temperature 97.6 F 05/29/25 09:42 Pulse Rate 103 H 05/29/25 09:42 Respiratory Rate 15 05/29/25 09:42 Blood Pressure 154/109 05/29/25 09:42 Pulse Oximetry 93 05/29/25 09:42 Oxygen Delivery Me thod Room Air 05/29/25 09:42 MDM - General Adult Medical Decision Making Patient presents here with hypocalcemia he has been asymptomatic calcium level here 7.5 not critically low did give him 1 g of calcium gluconate. I feel he is stable for discharge at this time he is to follow-up with his PCP and return if worsening he understands agrees to plan. Medical Records I reviewed the patient's medical records. Lab Data I reviewed the patient's lab results. 05/29/25 09:47 05/29/25 09:47 Laboratory Results WBC 4.21 10^3/uL (3.29-11.43) 05/29/25 09:47 RBC 3.92 10^6/uL (3.85-5.65) 05/29/25 09:47 Hgb 11.70 g/dL (11.27-16.99) 05/29/25 09:47 Hct 36.3 % (37-53) L 05/29/25 09:47 MCV 92.6 fl (82-101) 05/29/25 09:47 MCH 29.8 pg (27-33) 05/29/25 09:47 MCHC 32.2 g/dL (30-55) 05/29/25 09:47 RDW 14.1 % (12.1-15.1) 05/29/25 09:47 Plt Count 105 10^3/cmm (157-399) L 05/29/25 09:47 MPV 10.2 fL (7.4-10.4) 05/29/25 09:47 Neut % (Auto) 62.9 % 05/29/25 09:47 Lymph % (Auto) 18.3 % 05/29/25 09:47 [place] % (Auto) 8.1 % 05/29/25 09:47 Eos % (Auto) 5.7 % 05/29/25 09:47 Baso % (Auto) 4.8 % 05/29/25 09:47 Neut # (Auto) 2.65 10^3/uL (1.8-7.7) 05/29/25 09:47 Lymph # (Auto) 0.8 10^3/uL (0.8-4.8) 05/29/25 09:47 [place] # (Auto) 0.3 10^3/uL (0.2-0.9) 05/29/25 09:47 Eos # (Auto) 0.2 10^3/uL (0.0-0.8) 05/29/25 09:47 Baso # (Auto) 0.2 10^3/uL (0.0-0.1) H 05/29/25 09:47 Nucleated RBC % (auto) 0 % 05/29/25 09:47 Nucleated RBCs # 0.0 /100WBC 05/29/25 09:47 Sodium 138 mmol/L (136-145) 05/29/25 09:47 Potassium 4.1 mmol/L (3.5-5.1) 05/29/25 09:47 Chloride 104 mmol/L (98-107) 05/29/25 09:47 Carbon Dioxide 22 mmol/L (22-29) 05/29/25 09:47 Anion Gap 16.1 (5-19) 05/29/25 09:47 BUN 28 mg/dL (8-23) H 05/29/25 09:47 Creatinine 3.6 mg/dL (0.7-1.2) H 05/29/25 09:47 GFR Calculation 16.9 mL/min (90-130) L 05/29/25 09:47 Glucose 112 mg/dL (65-115) 05/29/25 09:47 Calculated Osmolality 292 mOsm/kg (285-295) 05/29/25 09:47 Calcium 7.4 mg/dL (8.5-10.5) L 05/29/25 09:47 Total Bilirubin 0.4 mg/dL (0.15-1.2) 05/29/25 09:47 AST 10 U/L (0-40) 05/29/25 09:47 ALT 7 U/L (0-41) 05/29/25 09:47 Alkaline Phosphatase 80 U/L (40-130) 05/29/25 09:47 Total Protein 6.7 g/dL (6.6-8.7) 05/29/25 09:47 Albumin 4.1 g/dL (3.5-5.2) 05/29/25 09:47 Globulin 2.6 g/dL (1.3-4.6) 05/29/25 09:47 No radiology studies performed this visit Discharge Plan Discharge Patient Disposition: Home Clinical Impression: Hypocalcemia Condition: Stable Prescriptions: No Action losartan 50 mg tablet See Rx Instructions .ROUTE .COMPLEX Qty: 180 0RF Dose Instruction: TAKE 1 TABLET BY MOUTH TWICE DAILY Rx Instructions: TAKE 1 TABLET BY MOUTH TWICE DAILY tamsulosin [Flomax] 0.4 mg capsule 0.4 mg PO DAILY Qty: 90 0RF nifedipine 90 mg tablet extended release 24hr See Rx Instructions .ROUTE .COMPLEX Qty: 90 4RF Dose Instruction: TAKE 1 TABLET BY MOUTH EVERY DAY Rx Instructions: TAKE 1 TABLET BY MOUTH EVERY DAY acetaminophen [Tylenol Extra Strength] 500 mg Tablet 1,500 mg PO Q6H PRN (Reason: Pain) ibuprofen [Advil] 200 mg Tablet 600 mg PO Q6H PRN (Reason: Pain) oxycodone-acetaminophen [Percocet] 5-325 mg tablet 1 tab PO Q4H PRN (Reason: pain) Discharge Orders: Discharge ED (Routine); Ordered 05/29/25 Ordered By: Edson Mora Referrals: David Kingston MD [Primary Care Provider, Unknown] - 4-7 days Discharge Diet: Advance as tolerated Discharge Activity: Resume usual activity Patient Instructions: Hypocalcemia (ED) Print Language: Bulgarian Coding Level of Care Code ED Account Manager for Mine Márquez
[2025-05-29 09:42] VITALS: BP 154/109; PULSE 103; RESP 15; TEMP 36.4; O2SAT 93; BMI 25.0
--- OUTSIDE RECORDS SUMMARY | 2025-05-29 09:42 | XMS_ITS | Clinical Summary ---
Author Organization [facility] Facility Address [address] [place] [address] Care Team Providers Care Collection Systems Modeler Name Role Phone Unavailable Primary Care Provider Unavailabl e Encounters Date Type Department Care Team Description 05/27/2025 Orders Only [facility], [facility] [address] [place] [address] Natalie Modi MD 05/18/2025 Orders Only [facility] [address] [place] [address] Natalie Modi MD 05/17/2025 Orders Only [facility], [facility] [address] [place] [address] Natalie Modi MD 05/13/2025 Orders Only [facility] [address] [place] [address] Natalie oMdi MD 05/11/2025 Orders Only [facility] [address] [place] [address] Natalie Modi MD 05/06/2025 Orders Only [facility] [address] [place] [address] Natalie Modi MD 05/04/2025 Orders Only [facility] [address] [place] [address] Natalie Modi MD 05/04/2025 Treatment [facility], [facility] [address] [place] [address] Nadia Espinosa, HEALTH ADVISOR 04/29/2025 Orders Only [facility], [facility] [address] [place] [address] Natalie Modi MD 04/27/[address] [place], [place] [address]rology [facility], [facility] [address] [place] [address] Nadia Espinosa, HEALTH ADVISOR 04/22/2025 Orders Only [facility], [facility] [address] [place] [address] Natalie Modi MD 04/20/2025 [facility], [facility] [address] [place] [address] Natalie Modi MD 04/20/[address] [place] [address], [facility] [address] [place] [address] Natalie Modi MD 04/13/2025 Orders Only [facility], [facility] [address] [place] [address] Natalie Modi MD 04/13/[address] [place] [address], [facility] [address] [place] [address] Nadia Espinosa, HEALTH ADVISOR 04/10/2025 Orders Only [facility], [facility] [address] [place] [address] Natalie Modi MD 04/06/2025 Orders Only [facility], [facility] [address] [place] [address] Natalie Modi MD 03/30/2025 Orders Only [facility], [facility] [address] [place] [address] Yfn Arrieta Ordering 03/30/[address] [place] [address] Nephrology [facility] [address] [place] [address] Neetu Pagan NP 03/25/2025 Treatment [facility], [facility] [address] [place] [address] Nadia Espinosa NP 03/23/2025 Orders Only [facility], [facility] [address] [place] [address] Natalie Modi MD from Last 3 Months Social History Tobacco Use Types Packs/Day Years Used Date Smoking Tobacco: Never Assessed Sex and Gender Information Value Date Recorded Sex Assigned at Not on file Legal Sex Male 11:24 AM EDT Gender Identity Not on file Sexual Orientation Not on file Plan of Treatment Health Maintenance Due Date Last Done Comments Pneumococcal Vaccine: 50+ Years (1 of 2 - PCV) 976 Hepatitis B Vaccine (1 of 5 - Risk Dialysis 4-dose series) 1976 Colorectal Cancer Screening: Annual FOBT 2005 Colorectal Cancer Screening: Colonoscopy 2005 Colorectal Cancer Screening: Sigmoidoscopy 2005 Influenza Vaccine (#1) 2025 Procedures Procedure Name Priority Date/Time Associated Diagnosis Comments FERRITIN Routine 05/27/2025 PTH, INTACT Routine 05/27/2025 HEPATITIS B SURFACE ANTIGEN W/REFL CONFIRM Routine 05/27/2025 DIFFERENTIAL WITH WBC Routine 05/27/2025 CBC Routine 05/27/2025 PLATELET COUNT Routine 05/27/2025 IRON AND TIBC Routine 05/27/2025 ALBUMIN Routine 05/27/2025 ALKALINE PHOSPHATASE Routine 05/27/2025 PHOSPHATE ( PHOSPHORUS) Routine 05/27/2025 CALCIUM Routine 05/27/2025 CO2, TOTAL Routine 05/27/2025 CHLORIDE Routine 05/27/2025 SODIUM Routine 05/27/2025 POTASSIUM Routine 05/27/2025 CREAT CLEARANCE, NORMALIZED Routine 05/18/2025 CO2, TOTAL Routine 05/18/2025 CHLORIDE Routine 05/18/2025 SODIUM Routine 05/18/2025 BUN Routine 05/18/2025 POTASSIUM Routine 05/18/2025 CREAT CLEARANCE, NORMALIZED Routine 05/17/2025 CREATININE, URINE, TIMED Routine 05/17/2025 BUN Routine 05/17/2025 FERRITIN Routine 05/13/2025 HEMOGLOBIN Routine 05/13/2025 PHOSPHATE ( PHOSPHORUS) Routine 05/13/2025 CALCIUM Routine 05/13/2025 CO2, TOTAL Routine 05/13/2025 CHLORIDE Routine 05/13/2025 SODIUM Routine 05/13/2025 POTASSIUM Routine 05/13/2025 CREATININE, URINE, TIMED Routine 05/11/2025 BUN Routine 05/11/2025 HEMOGLOBIN Routine 05/06/2025 PHOSPHATE ( PHOSPHORUS) Routine 05/06/2025 CALCIUM Routine 05/06/2025 CO2, TOTAL Routine 05/06/2025 CHLORIDE Routine 05/06/2025 SODIUM Routine 05/06/2025 POTASSIUM Routine 05/06/2025 SPECTRA YFN LAB RESULTS Routine 05/04/2025 PTH, INTACT Routine 05/04/2025 CREAT CLEARANCE, NORMALIZED Routine 05/04/2025 CREATININE, URINE, TIMED Routine 05/04/2025 POST DIALYSIS BUN Routine 05/04/2025 BUN Routine 05/04/2025 HEPATITIS B SURFACE ANTIGEN W/REFL CONFIRM Routine 04/29/2025 DIFFERENTIAL WITH WBC Routine 04/29/2025 CBC Routine 04/29/2025 PLATELET COUNT Routine 04/29/2025 IRON AND TIBC Routine 04/29/2025 ALBUMIN Routine 04/29/2025 PHOSPHATE ( PHOSPHORUS) Routine 04/29/2025 CALCIUM Routine 04/29/2025 CO2, TOTAL Routine 04/29/2025 CHLORIDE Routine 04/29/2025 SODIUM Routine 04/29/2025 BUN Routine 04/29/2025 POTASSIUM Routine 04/29/2025 CHEMISTRY Routine 04/22/2025 HEMATOLOGY Routine 04/22/2025 URINE CLEARANCE Routine 04/20/2025 CHEMISTRY Routine 04/20/2025 PATIENT INFORMATION Routine 04/20/2025 PATIENT INFORMATION Routine 04/20/2025 SPECTRA YFN LAB RESULTS Routine 04/13/2025 HD KINETICS Routine 04/13/2025 POST CHEMISTRY Routine 04/13/2025 CHEMISTRY Routine 04/13/2025 URINE CLEARANCE Routine 04/10/2025 CHEMISTRY Routine 04/10/2025 PATIENT INFORMATION Routine 04/10/2025 CHEMISTRY Routine 04/06/2025 SPECTRA YFN LAB RESULTS Routine 03/30/2025 HD KINETICS Routine 03/30/2025 POST CHEMISTRY Routine 03/30/2025 CHEMISTRY Routine 03/30/2025 IMMUNO CHEMISTRY Routine 03/25/2025 CHEMISTRY Routine 03/25/2025 HEMATOLOGY Routine 03/25/2025 URINE CLEARANCE Routine 03/23/2025 from Last 3 Months Results * (ABNORMAL) Iron and TIBC (05/27/2025) Only the most recent of2 resultswithin the time period is included. Pathologist [facility] Iron, Total 175 50 - 180 mcg/dL [facility] TIBC 215(L) 250 - 425 mcg/dL (calc) [facility] Iron Saturation (TSat) 81(H) 20 - 48 % (calc) [facility] 05/27/2025 05/26/2025 1:1 3 PM MECHANIC Narrative Resulting Agency Comment Performing Organization Information: Site ID: SELAM Name: [facility] Address: [address] [place] [phone] Director: Orquidea Bernstein MD us Natalie Modi MD LAB BLOOD ORDERABLES Final Re sult Performing Organization Address [facility] de Phone Number [facility] [address] * Hepatitis B Surface Ag w/Reflex Confirmation (05/27/2025) Only the most recent of2 resultswithin the time period is included. [facility] Hep B Surface Antigen NON-REACTI VE NON-REACTI VE [facility] Comment: For additional information, please refer to http://education.Jenn Rykert.1spire/faq/PFN344 (This link is being provided for informational/ educational purposes only.) 05/27/2025 05/26/2025 1:1 3 PM MECHANIC Narrative Resulting Agency Comment Performing Organization Information: Site ID: SELAM Name: [facility] Address: [address] [place] [phone] Director: Orquidea Bernstein MD us Natalie Modi MD LAB BLOOD ORDERABLES Final Re sult [facility] [address] [place] [address] * (ABNORMAL) Differential with WBC (05/27/2025) Only the most recent of2 resultswithin the time period is included. WBC 5.5 3.8 - 10.8 Thousand/u L [facility] Neutrophils Absolute 4,252 1,500 - 7,800 cells/uL [facility] Lymphocytes Absolute 721(L) 850 - 3,900 cells/uL [facility] Monocytes Absolute 198(L) 200 - 950 cells/uL [facility] Eosinophils Absolute 72 15 - 500 cells/uL [facility] Basophils Absolute 259(H) 0 - 200 cells/uL [facility] Neutrophils Relative 77.3 % [facility] Lymphocytes 13.1 % [facility] Monocytes 3.6 % [facility] Eosinophils 1.3 % [facility] Basophils Relative 4.7 % [facility] Comment(s) [facility] Comment: Review of peripheral smear confirms automated results. 05/27/2025 05/26/2025 1:1 3 PM MECHANIC Narrative Resulting Agency Comment Performing Organization Information: Site ID: [place] Name: [facility] Address: [address] [place] [address] Director: Orquidea Bernstein MD Natalie Modi MD LAB BLOOD ORDERABLES Final Re sult [facility] [address] [place] [address] * (ABNORMAL) Platelet count (05/27/2025) Only the most recent of2 resultswithin the time period is included. Platelets 117(L) 140 - 400 Thousand/uL [facility] 05/27/2025 05/26/2025 1:1 3 PM MECHANIC Narrative Resulting Agency Comment Performing Organization Information: Site ID: SELAM Name: [facility] Address: [place] [address] Director: Orquidea Bernstein MD Natalie Modi MD LAB BLOOD ORDERABLES Final Re sult Performing Organization Address City/[facility] Co de Phone Number [facility] [address] * (ABNORMAL) CBC (05/27/2025) Only the most recent of2 resultswithin the time period is included. WBC 5.5 3.8 - 10.8 Thousand/u L [facility] RBC 3.80(L) 4.20 - 5.80 Million/uL [facility] Hemoglobin 11.7(L) 13.2 - 14.0 g/dL [facility] Hematocrit 35.1(L) 39.4 - 51.1 % [facility] MCV 92.4 81.4 - 101.7 fL [facility] MCH 30.8 27.0 - 33.0 pg [facility] MCHC 33.3 31.6 - 35.4 g/dL [facility] Comment: For adults, a slight decrease in the calculated MCHC value (in the range of 30 to 32 g/dL) is most likely not clinically significant; however, it should be interpreted with caution in correlation with other red cell parameters and the patient's clinical condition. RDW 14.4 11.0 - 15.0 % [facility] 05/27/2025 05/26/2025 1:1 3 PM MECHANIC Narrative Resulting Agency Comment Performing Organization Information: Site ID: SELAM Name: [facility] Address: [place] [address] Director: Orquidea Bernstein MD Natalie Modi MD LAB BLOOD ORDERABLES Final Re sult Performing Organization Address [facility] Co de Phone Number [facility] [address] [place] [address] * Sodium (05/27/2025) Only the most recent of5 resultswithin the time period is included. Sodium 136 135 - 146 mmol/L [facility] 05/27/2025 05/26/2025 1:1 3 PM MECHANIC Narrative Resulting Agency Comment Performing Organization Information: Site ID: SELAM Name: [facility] Address: [address] [place] [phone] Director: Orquidea Bernstein MD Natalie Modi MD LAB BLOOD ORDERABLES Final Re sult Performing Organization Address [facility] Co de Phone Number [facility] [address] * Potassium (05/27/2025) Only the most recent of5 resultswithin the time period is included. Potassium 4.4 3.5 - 5.3 mmol/L [facility] 05/27/2025 05/26/2025 1:1 3 PM MECHANIC Narrative Resulting Agency Comment Performing Organization Information: Site ID: SELAM Name: [facility] Address: [address] [place] [phone] Director: Orquidea Bernstein MD us Natalie Modi MD LAB BLOOD ORDERABLES Final Re sult Performing Organization Address [facility] Co de Phone Number [facility] [address] [place] [phone] * Phosphorus (05/27/2025) Only the most recent of4 resultswithin the time period is included. Phosphorus 4.0 3.0 - 4.3 mg/dL [facility] 05/27/2025 05/26/2025 1:1 3 PM MECHANIC Narrative Resulting Agency Comment Performing Organization Information: Site ID: SELAM Name: [facility] Address: [address] [place] [phone] Director: Orquidea Bernstein MD Natalie Modi MD LAB BLOOD ORDERABLES Final Re sult Performing Organization Address City/[facility] Co de Phone Number [facility] [address] * Alkaline phosphatase (05/27/2025) Alkaline Phosphatase 74 35 - 144 U/L [facility] 05/27/2025 05/26/2025 1:1 3 PM MECHANIC Narrative Resulting Agency Comment Performing Organization Information: Site ID: SELAM Name: [facility] Address: [address] [place] [phone] Director: Orquidea Bernstein MD us Natalie Modi MD LAB BLOOD ORDERABLES Final Re sult Performing Organization Address [facility] Co de Phone Number [facility] [address] * (ABNORMAL) PTH, Intact (05/27/2025) Only the most recent of2 resultswithin the time period is included. Parathyroid Hormone, Intact 2,493(H) 16 - 77 pg/mL [facility] Comment: Interpretive Guide Intact PTH Calcium ------- Normal Parathyroid Normal Normal Hypoparathyroidism Low or Low Normal Low Hyperparathyroidism Primary Normal or High High Secondary High Normal or Low Tertiary High High Non-Parathyroid Hypercalcemia Low or Low Normal High 05/27/2025 05/26/2025 1:1 3 PM MECHANIC Narrative Resulting Agency Comment Performing Organization Information: Site ID: SELAM Name: [facility] Address: [address] [place] [phone] Director: Orquidea Bernstein MD us Natalie Modi MD LAB BLOOD ORDERABLES Final Re sult Performing Organization Address City/[facility]/ZIP Co de Phone Number [facility] [address] [place] [phone] * (ABNORMAL) Ferritin (05/27/2025) Only the most recent of2 resultswithin the time period is included. Ferritin 634(H) 24 - 380 ng/mL [facility] 05/27/2025 05/26/2025 1:1 3 PM MECHANIC Narrative Resulting Agency Comment Performing Organization Information: Site ID: SELAM Name: [facility] Address: [address] [place] [phone] Director: Orquidea Bernstein MD us Natalie Modi MD LAB BLOOD ORDERABLES Final Re sult Performing Organization Address [facility] Co de Phone Number [facility] [address] [place] [phone] * Chloride (05/27/2025) Only the most recent of5 resultswithin the time period is included. Chloride 107 98 - 110 mmol/L [facility] 05/27/2025 05/26/2025 1:1 3 PM MECHANIC Narrative Resulting Agency Comment Performing Organization Information: Site ID: SELAM Name: [facility] Address: [address] [place], [place] [address] [address] Director: Orquidea Bernstein MD us Natalie Modi MD LAB BLOOD ORDERABLES Final Re sult Performing Organization Address [facility]/ZIP Co de Phone Number [facility] [address] [place] [phone] * (ABNORMAL) CO2 (05/27/2025) Only the most recent of5 resultswithin the time period is included. Bicarbonate (CO2) 19(L) 20 - 29 mmol/L [facility] 05/27/2025 05/26/2025 1:1 3 PM MECHANIC Narrative Resulting Agency Comment Performing Organization Information: Site ID: SELAM Name: [facility] Address: [address] [place] [phone] Director: Orquidea Bernstein MD Natalie Modi MD LAB BLOOD ORDERABLES Final Re sult Performing Organization Address [facility] Co de Phone Number [facility] [address] [place] [phone] * (ABNORMAL) Calcium (05/27/2025) Only the most recent of4 resultswithin the time period is included. Calcium 5.4(LL) 8.6 - 10.0 mg/dL [facility] Comment: Verified by repeat analysis. 05/27/2025 05/26/2025 1:1 3 PM MECHANIC Narrative Resulting Agency Comment Performing Organization Information: Site ID: SELAM Name: [facility] Address: [address] [place] [phone] Director: Orquidea Bernstein MD us Natalie Modi MD LAB BLOOD ORDERABLES Final Re sult Performing Organization Address [facility] Co de Phone Number [facility] [address] [place] [phone] * Albumin (05/27/2025) Only the most recent of2 resultswithin the time period is included. Albumin 4.2 3.6 - 5.1 g/dL [facility] 05/27/2025 05/26/2025 1:1 3 PM MECHANIC Narrative Resulting Agency Comment Performing Organization Information: Site ID: SELAM Name: [facility] Address: [address] [place] [phone] Director: Orquidea Bernstein MD Natalie Modi MD LAB BLOOD ORDERABLES Final Re sult Performing Organization Address City/[facility]/ZIP Co de Phone Number [facility] [address] [place] [address], [place] [address] * (ABNORMAL) Creatinine Clearance, Normalized (05/18/2025) Only the most recent of3 resultswithin the time period is included. Creatinine 4.27(H) 0.70 - 1.35 mg/dL [facility] Creatinine, Urine Timed OTH mg/dL [facility] Comment: Unable To Report. Result not calculated because one or more required values were not available. Volume, (UVOL) OTH mL [facility] Comment: Unable To Report. Result not calculated because one or more required values were not available. 05/18/2025 05/17/2025 12: 16 PM MECHANIC Narrative Resulting Agency Comment Performing Organization Information: Site ID: SELAM Name: [facility] Address: [address] [place] [phone] Director: Orquidea Bernstein MD Natalie Modi MD LAB [id number] SOLICITED RESULTS Final Result Performing Organization Address City/[facility]/ZIP Co de Phone Number [facility] [address] [facility] [place] [address] * (ABNORMAL) BUN (05/18/2025) Only the most recent of5 resultswithin the time period is included. BUN 36(H) 7 - 25 mg/dL [facility] 05/18/2025 05/17/2025 12: 16 PM MECHANIC Narrative Resulting Agency Comment Performing Organization Information: Site ID: SELAM Name: [facility] Address: [address] [place] [phone] Director: Orquidea Bernstein MD Natalie Modi MD LAB BLOOD ORDERABLES Final Re sult Performing Organization Address [facility] de Phone Number [facility] [address] [place] [phone] * Creatinine, urine, timed (05/17/2025) Only the most recent of3 resultswithin the time period is included. Volume, (UVOL) OTH mL [facility] Comment: Unable To Report. Result not calculated because one or more required values were not available. Creatinine, Urine Timed OTH mg/dL [facility] Comment: Unable To Report. Result not calculated because one or more required values were not available. 05/17/2025 05/16/2025 3:2 3 PM MECHANIC Narrative Resulting Agency Comment Performing Organization Information: Site ID: [place] Name: [facility] Address: [address] [place] [phone] Director: Orquidea Bernstein MD Natalie Modi MD LAB URINE ORDERABLES Final [facility] Performing Organization Address [facility] Phone Number [facility] [address] * Hemoglobin (05/13/2025) Only the most recent of2 resultswithin the time period is included. Hemoglobin OTH g/dL [facility] Comment: TEST NOT PERFORMED. An electronic test request was transmitted, but no specimen was received by the laboratory. Test has been cancelled. 05/13/2025 05/12/2025 5:3 0 AM MECHANIC Narrative Resulting Agency Comment Performing Organization Information: Site ID: [place] Name: [facility] Address: [address] [place] [phone] Director: Orquidea Bernstein MD Natalie Modi MD LAB BLOOD ORDERABLES Final Re sult Performing Organization Address City/[facility]/ZIP Co de Phone Number [facility] [address] [place] [address] * [facility] Results (05/04/2025) Only the most recent of3 resultswithin the time period is included. nPCR_HD 0.72 [facility] eKt/V (Tattersall) 1.27 [facility] PCR 41.66 [facility] eKt/V [facility] WSTDKT/V 5.2 [facility] eKdrt/V 2.38 [facility] eNPCR 0.70 [facility] spKt/V Gotch 1.50 [facility] ge Center spKt/V (Daugirdas II) 1.51 [facility] 05/04/2025 05/04/2025 [place] Ordering Provider LAB BLOOD ORDERABLES Final Result Performing Organization Address [facility] Co de Phone Number [facility] Center Contact Performing lab Unknown, [place] * Post Dialysis BUN (05/04/2025) Pathologist [facility] BUN Post Dialysis 7 7 - 25 mg/dL [facility] 05/04/2025 05/01/2025 11: 58 AM MECHANIC Narrative Resulting Agency Comment Performing Organization Information: Site ID: [place] Name: [facility] Address: [address] [place] [address] Director: Orquidea Bernstein MD Natalie Modi MD LAB BLOOD ORDERABLES Final Re sult Performing Organization Address City/[facility]/ZIP Co de Phone Number [facility] [address] [place] [address] * (ABNORMAL) HEMATOLOGY (04/22/2025) Only the most recent of2 resultswithin the time period is included. Hemoglobin 10.9(L) 14.0 - 18.0 g/dL [facility] Hemoglobin x 3 32.7(L) 42.0 - 54.0 % [facility] 04/22/2025 04/23/2025 9:4 7 AM CDT Narrative [facility] - 04/23/2025 Unless otherwise specified, test(s) performed at: [facility], [address] [place], [place] [id number] HARDWOOD SAWYER: Lazaro Dawn M.D. For any questions, please call customer service at FREQUENCY:OTHER Resulting Agency Comment Specimen source: Blood us Natalie Modi MD LAB BLOOD ORDERABLES Final Re sult [facility] See order comments or contact performing lab Unknown, [place] * (ABNORMAL) [facility] Chemistry (04/22/2025) Only the most recent of7 resultswithin the time period is included. BUN 36(H) 6 - 19 mg/dL [facility] Creatinine 3.49(H) 0.60 - 1.30 mg/dL [facility] BUN/Creatinine Ratio 10.3 10.0 - 20.0 [facility] Sodium 139 136 - 145 mEq/L [facility] Potassium 3.8 3.5 - 5.1 mEq/L [facility] Chloride 107 96 - 108 mEq/L [facility] Bicarbonate (CO2) 22 22 - 29 mEq/L [facility] Calcium 7.5(L) 8.4 - 10.2 mg/dL [facility] Phosphorus 2.1(L) 2.6 - 4.5 mg/dL [facility] Comment: Custom Exception Calcium Phosphorus Product 16 0 - 54 [facility] Glucose 105(H) 70 - 100 mg/dL [facility] 04/22/2025 04/24/2025 11: 33 AM CDT Narrative [facility] - 04/24/2025 Unless otherwise specified, test(s) performed at: [facility], [address] [place] [id number] HARDWOOD SAWYER: Lazaro Dawn M.D. For any questions, please call customer service at FREQUENCY:OTHER Resulting Agency Comment Specimen source: Serum us Natalie Modi MD LAB BLOOD ORDERABLES Final Re sul Performing Organization Address [facility] de Phone Number [facility] See order comments or contact performing lab Unknown, [place] * (ABNORMAL) URINE CLEARANCE (04/20/2025) Only the most recent of3 resultswithin the time period is included. Urea Nitrogen, Urine Timed 345 mg/dL [facility] Urea Nitrogen, Urine 24 Hr 5.2(L) 12.0 - 20.0 g/24 hr [facility] Urea Clearance, Urine 9.5(L) 64.0 - 99.0 mL/min [facility] Creatinine, Urine Timed 66.6 mg/dL [facility] Creatinine, 24H Ur 1.0 0.7 - 1.8 g/24 hr [facility] Creatinine Clear, Urine 19.5 mL/min [facility] Creat Clear, Urine Norm 18.5(L) 94.0 - 122.0 mL/min [facility] Comment: Custom Alert 04/20/2025 04/21/2025 1:1 3 PM CDT Narrative [facility] - 04/21/2025 Unless otherwise specified, test(s) performed at: [facility], [address] [place] [address] HARDWOOD SAWYER: Lazaro Dawn M.D. For any questions, please call customer service at FREQUENCY:OTHER Resulting Agency Comment Specimen source: Urine us Natalie Modi MD LAB URINE ORDERABLES Final [facility] Performing Organization Address [facility] de Phone Number [facility] See order comments or contact performing lab Unknown, [place] * PATIENT INFORMATION (04/20/2025) Only the most recent of3 resultswithin the time period is included. Pathologist [facility] Patient BSA 1.82 sq. M. [facility] Comment: Normalized values are calculated using the patient's actual BSA and normalized to the average BSA of 1.73m2. 04/20/2025 04/21/2025 12: 20 PM CDT Narrative [employer] [employer] - 04/21/2025 Unless otherwise specified, test(s) performed at: [facility], [address] [place] [address] HARDWOOD SAWYER: Lazaro Dawn M.D. For any questions, please call customer service at FREQUENCY:OTHER Resulting Agency Comment Specimen source: PD Fluid us Natalie Modi MD LAB BLOOD ORDERABLES Final Re sult Performing Organization Address [facility] de Phone Number [facility] See order comments or contact performing lab Unknown, [place] * HD KINETICS (04/13/2025) Only the most recent of2 resultswithin the time period is included. % Urea Reduction 70 65 - 80 % [facility] 04/13/2025 04/14/2025 9:4 3 AM CDT Narrative Resulting Agency Comment Specimen source: Plasma us Natalie Modi MD LAB BLOOD ORDERABLES Final Re sult Performing Organization Address [facility] de Phone Number [facility] See order comments or contact performing lab Unknown, [place] * POST CHEMISTRY (04/13/2025) Only the most recent of2 resultswithin the time period is included. BUN Post Dialysis 9 6 - 19 mg/dL [facility] 04/13/2025 04/14/2025 9:4 3 AM CDT Narrative [facility] - 04/14/2025 Unless otherwise specified, test(s) performed at: [facility], [address] [place], [place] [id number] HARDWOOD SAWYER: Lazaro Dawn M.D. For any questions, please call customer service at FREQUENCY:OTHER Resulting Agency Comment Specimen source: Plasma us Natalie Modi MD LAB BLOOD ORDERABLES Final Re sult Performing Organization Address [facility] de Phone Number [facility] See order comments or contact performing lab Unknown, [place] * IMMUNO CHEMISTRY (03/25/2025) Hepatitis B Surface Ab <10 mIU/mL [facility] Comment: Reference Range: <10 mIU/mL Non-Immune >=10 mIU/mL Immune The magnitude of the measured result above 10 mIU/mL is not indicative of the total amount of antibody present. Custom Exception Hep B Surface Ag Negative Negative [facility] Hep B Core Total Ab Negative Negative [facility] Comment: Hep B Core Ab, Total appears during the acute infection stage and remains reactive/positive throughout the recovery stage. The above test result was obtained using Siemens Centaur XP chemiluminescent method. Results obtained with different assay methods or kits cannot be used interchangeably. Hepatitis C Antibody Nonreactive Nonreactive [facility] Comment: No HCV antibody detected. The above test result was obtained using Siemens Centaur XP chemiluminescent method. Results obtained with different assay methods or kits cannot be used interchangeably. S/CO Ratio <0.02 0.00 - 0.79 [facility] Comment: s/co ratio Interpretation Supplemental testing <0.80 Nonreactive No further testing required. 0.80-0.99 Equivocal HCV RNA Quantitative Real-Time PCR is recommended. 1.00->11.00 Reactive HCV RNA Quantitative Real-Time PCR is recommended to distinguish active from resolved cases. 03/25/2025 03/26/2025 11: 44 AM CDT Narrative Resulting Agency Comment Specimen source: Serum Natalie Modi MD LAB BLOOD ORDERABLES Edited R esult - Final [facility] See order comments or contact performing lab Unknown, [place] from Last 3 Months Insurance [facility] PPO ([phone])
--- OUTSIDE RECORDS SUMMARY | 2025-05-29 09:42 | XMS_ITS | Encounter Summary ---
Author Organization [facility] [employer], 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 [address] [place] [address] Natalie Modi MD [address] [facility] [address] [place] [address] Social History Tobacco Use Types Packs/Day Years Used Date Smoking Tobacco: Never Assessed Sex and Gender Information Value Date Recorded Sex Assigned at Not on file Legal Sex Male 11:24 AM EDT Gender Identity Not on file Sexual Orientation Not on file documented as of this encounter Plan of Treatment Not on file documented as of this encounter Procedures Procedure Name Priority Date/Time Associated Diagnosis Comments CREAT CLEARANCE, NORMALIZED Routine 05/17/2025 CREATININE, URINE, TIMED Routine 05/17/2025 BUN Routine 05/17/2025 documented in this encounter Results * Creatinine Clearance, Normalized (05/17/2025) Creatinine OTH mg/dL [facility] Comment: Unable To Report. Result not calculated because one or more required values were not available. Creatinine, Urine Timed OTH mg/dL [facility] Comment: Unable To Report. Result not calculated because one or more required values were not available. Volume, (UVOL) OTH mL [facility] Comment: Unable To Report. Result not calculated because one or more required values were not available. 05/17/2025 05/16/2025 3:2 3 PM BUNCH TRIMMER MOLD Narrative Resulting Agency Comment Performing Organization Information: Site ID: [facility] Name: [facility] Address: [address] [place] [phone] Director: Orquidea Bernstein MD us Natalie Modi MD LAB [id number] SOLICITED RESULTS Final Result Performing Organization Address [facility] Co de Phone Number [facility] [address] [place] [phone] * Creatinine, urine, timed (05/17/2025) Volume, (UVOL) OTH mL [facility] Comment: Unable To Report. Result not calculated because one or more required values were not available. Creatinine, Urine Timed OTH mg/dL [facility] Comment: Unable To Report. Result not calculated because one or more required values were not available. 05/17/2025 05/16/2025 3:2 3 PM BUNCH TRIMMER MOLD Narrative Resulting Agency Comment Performing Organization Information: Site ID: [facility]EL[facility] Name: [facility] Stevens Address: [address] [place] [phone] Director: Orquidea Bernstein MD Natalie Modi MD LAB URINE ORDERABLES Final Re sult Performing Organization Address [facility] Co de Phone Number [facility] [address] [place] [address], [place] [phone] * BUN (05/17/2025) BUN OTH mg/dL [facility] Comment: Unable To Report. Result not calculated because one or more required values were not available. 05/17/2025 05/16/2025 3:2 3 PM BUNCH TRIMMER MOLD Narrative Resulting Agency Comment Performing Organization Information: Site ID: SEL[facility] Name: [facility] Address: [address] [place] [address] Director: Orquidea Bernstein MD us Natalie Modi MD LAB BLOOD ORDERABLES Final Re sult [facility] [address] [place] [address] documented in this encounter Visit Diagnoses Not on filedocumented in this encounter
--- OUTSIDE RECORDS SUMMARY | 2025-05-29 09:42 | XMS_ITS | Encounter Summary ---
Author Organization [facility], [facility] Address [address] [facility] [address] [place] [address] Phone Care Team Providers Care System Controller Name Role Phone Unavailable Primary Care Provider Unavailabl e Encounter Details Date Type Department Care Team (Late st Contact Info) Description 05/27/2025 Orders Only [facility], [facility] [address] [place] [address] Natalie Modi MD [address] [place] [address] Social History Tobacco Use Types [...] Procedure Name Priority Date/Time Associated Diagnosis Comments IRON AND TIBC Routine 05/27/2025 HEPATITIS B SURFACE ANTIGEN W/REFL CONFIRM Routine 05/27/2025 DIFFERENTIAL WITH WBC Routine 05/27/2025 PLATELET COUNT Routine 05/27/2025 CBC Routine 05/27/2025 SODIUM Routine 05/27/2025 POTASSIUM Routine 05/27/2025 PHOSPHATE ( PHOSPHORUS) Routine 05/27/2025 ALKALINE PHOSPHATASE Routine 05/27/2025 PTH, INTACT Routine 05/27/2025 FERRITIN Routine 05/27/2025 CHLORIDE Routine 05/27/2025 CO2, TOTAL Routine 05/27/2025 CALCIUM Routine 05/27/2025 ALBUMIN Routine 05/27/2025 documented in this encounter Results * (ABNORMAL) Ferritin (05/27/2025) Ferritin 634(H) 24 - 380 ng/mL [facility] 05/27/2025 05/26/2025 1:1 3 PM RASCHEL KNITTING MACHINE OPERATOR Narrative Resulting Agency Comment Performing Organization Information: Site ID: [place] Name: [facility] Address: [id number] [place] [phone] Director: Orquidea Bernstein MD us Natalie Modi MD LAB BLOOD ORDERABLES Final Re sult [facility] [address] [place] [phone] * (ABNORMAL) PTH, Intact (05/27/2025) Parathyroid Hormone, Intact 2,493(H) 16 - 77 pg/mL [facility] Comment: Interpretive Guide Intact PTH Calcium ------- Normal Parathyroid Normal Normal Hypoparathyroidism Low or Low Normal Low Hyperparathyroidism Primary Normal or High High Secondary High Normal or Low Tertiary High High Non-Parathyroid Hypercalcemia Low or Low Normal High 05/27/2025 05/26/2025 1:1 3 PM RASCHEL KNITTING MACHINE OPERATOR Narrative Resulting Agency Comment Performing Organization Information: Site ID: [facility] Name: [facility] Address: [address] [place] [phone] Director: Orquidea Bernstein MD Natalie Modi MD LAB BLOOD ORDERABLES Final Re sult Performing Organization Address [facility] de Phone Number [facility] [address] [place] [phone] * Hepatitis B Surface Ag w/Reflex Confirmation (05/27/2025) Pathologist [facility] Hep B Surface Antigen NON-REACTI VE NON-REACTI VE [facility] Comment: For additional information, please refer to http://education.Customer Alliance/faq/SMA433 (This link is being provided for informational/ educational purposes only.) 05/27/2025 05/26/2025 1:1 3 PM RASCHEL KNITTING MACHINE OPERATOR Narrative Resulting Agency Comment Performing Organization Information: Site ID: [facility]EL[facility] Name: [facility] Address: [address] [place] [phone] Director: Orquidea Bernstein MD Natalie Modi MD LAB BLOOD ORDERABLES Final Re sult Performing Organization Address [facility] Co de Phone Number [facility] [address] [place] [phone] * (ABNORMAL) Differential with WBC (05/27/2025) WBC 5.5 3.8 - 10.8 Thousand/u L [...] automated results. 05/27/2025 05/26/2025 1:1 3 PM RASCHEL KNITTING MACHINE OPERATOR Narrative Resulting Agency Comment Performing Organization Information: Site ID: [facility]EL[facility] Name: [facility] Address: [address] [facility] [place] [address] Director: Orquidea Bernstein MD Natalie Modi MD LAB BLOOD ORDERABLES Final Re sult [facility] [address] [facility] [place] [address] * (ABNORMAL) CBC (05/27/2025) WBC 5.5 3.8 - 10.8 Thousand/u L [...] [facility] 05/27/2025 05/26/2025 1:1 3 PM RASCHEL KNITTING MACHINE OPERATOR Narrative Resulting Agency Comment Performing Organization Information: Site ID: [place] Name: [facility] Address: [address] [place] [phone] Director: Orquidea Bernstein MD us Natalie Modi MD LAB BLOOD ORDERABLES Final Re sult Performing Organization Address [facility] Co de Phone Number [facility] [address] [place] [phone] * (ABNORMAL) Platelet count (05/27/2025) Platelets 117(L) 140 - 400 Thousand/uL [facility] 05/27/2025 05/26/2025 1:1 3 PM RASCHEL KNITTING MACHINE OPERATOR Narrative Resulting Agency Comment Performing Organization Information: Site ID: [place] Name: [facility] Address: [address] [place] [phone] Director: Orquidea Bernstein MD us Natalie Modi MD LAB BLOOD ORDERABLES Final Re sult Performing Organization Address [facility] Phone Number [facility] [address] [place] [phone] * (ABNORMAL) Iron and TIBC (05/27/2025) Iron, Total 175 50 - 180 mcg/dL [facility] TIBC 215(L) 250 - 425 mcg/dL (calc) [facility] Iron Saturation (TSat) 81(H) 20 - 48 % (calc) [facility] 05/27/2025 05/26/2025 1:1 3 PM RASCHEL KNITTING MACHINE OPERATOR Narrative Resulting Agency Comment Performing Organization Information: Site ID: [place] Name: [facility] Address: [address] [place] [phone] Director: Orquidea Bernstein MD us Natalie Modi MD LAB BLOOD ORDERABLES Final Re sult Performing Organization Address [facility] Co de Phone Number [facility] [id number] [place] [phone] * Albumin (05/27/2025) Albumin 4.2 3.6 - 5.1 g/dL [facility] 05/27/2025 05/26/2025 1:1 3 PM RASCHEL KNITTING MACHINE OPERATOR Narrative Resulting Agency Comment Performing Organization Information: Site ID: [place] Name: [facility] Address: [address] [place] [phone] Director: Orquidea Bernstein MD Natalie Modi MD LAB BLOOD ORDERABLES Final Re sult Performing Organization Address [facility] Co de Phone Number [facility] [address] [place] [phone] * Alkaline phosphatase (05/27/2025) Alkaline Phosphatase 74 35 - 144 U/L [facility] 05/27/2025 05/26/2025 1:1 3 PM RASCHEL KNITTING MACHINE OPERATOR Narrative Resulting Agency Comment Performing Organization Information: Site ID: [facility] Name: [facility] Address: [address] [place] [phone] Director: Orquidea Bernstein MD Natalie Modi MD LAB BLOOD ORDERABLES Final Re sult Performing Organization Address [facility] Co de Phone Number [facility] [address] [place] [phone] * Phosphorus (05/27/2025) Phosphorus 4.0 3.0 - 4.3 mg/dL [facility] 05/27/2025 05/26/2025 1:1 3 PM RASCHEL KNITTING MACHINE OPERATOR Narrative Resulting Agency Comment Performing Organization Information: Site ID: SELAM Name: [facility] Address: [address] [place] [phone] Director: Orquidea Bernstein MD Natalie Modi MD LAB BLOOD ORDERABLES Final Re sult Performing Organization Address [facility] Co de Phone Number [facility] [id number] [place] [phone] * (ABNORMAL) Calcium (05/27/2025) Calcium 5.4(LL) 8.6 - 10.0 mg/dL [facility] Comment: Verified by repeat analysis. 05/27/2025 05/26/2025 1:1 3 PM RASCHEL KNITTING MACHINE OPERATOR Narrative Resulting Agency Comment Performing Organization Information: Site ID: [place]EL[place] Name: [facility] Address: [address] [place] [phone] Director: Orquidea Bernstein MD us Natalie Modi MD LAB BLOOD ORDERABLES Final Re sult Performing Organization Address [facility] Phone Number [facility] [address] [place] [phone] * (ABNORMAL) CO2 (05/27/2025) Bicarbonate (CO2) 19(L) 20 - 29 mmol/L [facility] 05/27/2025 05/26/2025 1:1 3 PM RASCHEL KNITTING MACHINE OPERATOR Narrative Resulting Agency Comment Performing Organization Information: Site ID: [place] Name: [facility] Address: [address] [place] [phone] Director: Orquidea Bernstein MD us Natalie Modi MD LAB BLOOD ORDERABLES Final Re sult Performing Organization Address [facility] de Phone Number [facility] [address] [place] [phone] * Chloride (05/27/2025) Chloride 107 98 - 110 mmol/L [facility] 05/27/2025 05/26/2025 1:1 3 PM RASCHEL KNITTING MACHINE OPERATOR Narrative Resulting Agency Comment Performing Organization Information: Site ID: SELAM Name: [facility] Address: [address] [place] [phone] Director: Orquidea Bernstein MD us Natalie Modi MD LAB BLOOD ORDERABLES Final Re sult Performing Organization Address [facility] Co de Phone Number [facility] [address] [place] [address] * Sodium (05/27/2025) Sodium 136 135 - 146 mmol/L [facility] 05/27/2025 05/26/2025 1:1 3 PM RASCHEL KNITTING MACHINE OPERATOR Narrative Resulting Agency Comment Performing Organization Information: Site ID: SELAM Name: [facility] Address: [address] [place] [phone] Director: Orquidea Bernstein MD us Natalie Modi MD LAB BLOOD ORDERABLES Final Re sult Performing Organization Address [facility] de Phone Number [facility] [address] [place] [phone] * Potassium (05/27/2025) Potassium 4.4 3.5 - 5.3 mmol/L [facility] 05/27/2025 05/26/2025 1:1 3 PM RASCHEL KNITTING MACHINE OPERATOR Narrative Resulting Agency Comment Performing Organization Information: Site ID: [place] Name: [facility] Address: [address] [place] [phone] Director: Orquidea Bernstein MD us Natalie Modi MD LAB BLOOD ORDERABLES Final Re sult Performing Organization Address [facility] Co de Phone Number [facility] [address] [place] [phone] documented in this encounter Visit Diagnoses Not on filedocumented in this encounter
[2025-05-29 10:00] LABS: Hematocrit 36.3 % (37-53); Hemoglobin 11.70 g/dL (11.27-16.99); Mean Corpuscular HGB Conc 32.2 g/dL (30-55); Mean Corpuscular Hemoglobin 29.8 pg (27-33); Mean Corpuscular Volume 92.6 fl (82-101); Nucleated Red Blood Cells % 0 %; Platelet Count 105 10^3/cmm (157-399); Red Blood Count 3.92 10^6/uL (3.85-5.65); White Blood Count 4.21 10^3/uL (3.29-11.43)
[2025-05-29 10:18] LABS: Alanine Aminotransferase 7 U/L (0-41); Albumin Level 4.1 g/dL (3.5-5.2); Alkaline Phosphatase 80 U/L (40-130); Anion Gap 16.1 (5-19); Aspartate Amino Transferase 10 U/L (0-40); Blood Urea Nitrogen 28 mg/dL (8-23); Calcium 7.4 mg/dL (8.5-10.5); Carbon Dioxide 22 mmol/L (22-29); Chloride 104 mmol/L (98-107); Globulin 2.6 g/dL (1.3-4.6); Glucose 112 mg/dL (65-115); Osmolality Calculated 292 mOsm/kg (285-295); Potassium 4.1 mmol/L (3.5-5.1); Sodium 138 mmol/L (136-145); Total Protein 6.7 g/dL (6.6-8.7)
[2025-05-29] MEDS: calcium gluconate 0.1 gm/mL 10% SDV 10mL 1 GM IVP (10:39)
[2025-05-29 10:59] VITALS: BP 154/109; PULSE 77; RESP 18; O2SAT 97
[2025-05-29 11:10] VITALS: BP 157/109; PULSE 78; O2SAT 98
== END 2025-05-29 11:11 | disposition home or self-care (01) ==
PROVIDERS: Emergency Provider Emergency Medicine; PCP Family Medicine
DX: E83.51 Hypocalcemia (principal); F17.210 Nicotine dependence, cigarettes, uncomplicated; N18.6 End stage renal disease; Z99.2 Dependence on renal dialysis
CPT/HCPCS: 36415; 80053; 85025; 96374; 99284; J0612